=== PATIENT | female | born 1970 | race Caucasian/White ===

== ENCOUNTER 2016-06-02 13:57 | Inpatient (IN) | payer MEDICARE, MEDICAID ==
--- NOTE | 2016-06-02 15:04 | ED ---
Psych HPI - General Chief Complaint: Psychiatric Symptoms Stated Complaint: Psych Eval Time Seen by Provider: 06/02/16 14:14 Source: patient, police, RN notes reviewed Mode of arrival: ambulatory Limitations: no limitations - History of Present Illness Initial Comments: 45-year-old female presents emergency Department with police for psychiatric evaluation. Patient states that she was at the [facility] because she did not feel well. Patient had complete workup at [facility] with no acute findings. This was consistent with family story. Patient was picked up on court order psychiatric evaluation. Patient denies suicidal or homicidal thoughts. Patient denies any illicit drug use or alcohol use - Related Data Home Medications Medication Instructions Recorded Confirmed ARIPiprazole [Abilify Maintena] 400 mg IM Q28D 06/02/16 06/02/16 Calcium Carbonate/Vitamin D3 1 tab PO DAILY 06/02/16 06/02/16 [Calcium 600-Vit D3 800 Tab] Famotidine [Pepcid] 20 mg PO DAILY 06/02/16 06/02/16 Gabapentin [Neurontin] 100 mg PO TID 06/02/16 06/02/16 Magnesium Oxide [Mag-Ox] 400 mg PO DAILY 06/02/16 06/02/16 clonazePAM [Clonazepam] 2 mg PO HS 06/02/16 06/02/16 fluvoxaMINE MALEATE [Luvox] 100 mg PO QAM 06/02/16 06/02/16 Allergies Allergy/AdvReac Type Severity Reaction Status Date / Time codeine Allergy Unknown Verified 06/02/16 16:00 ibuprofen Allergy Unknown Verified 06/02/16 16:00 latex Allergy Itching Verified 06/02/16 16:00 chlorpromazine HCl AdvReac Extreme Verified 06/02/16 16:00 [From Thorazine] Sedation fluphenazine enanthate AdvReac Extreme Verified 06/02/16 16:00 [From Prolixin] Sedation fluphenazine HCl AdvReac Extreme Verified 06/02/16 16:00 [From Prolixin] Sedation Review of Systems ROS Statement: Those systems with pertinent positive or pertinent negative responses have been documented in the HPI. ROS Other: All systems not noted in ROS Statement are negative. Past Medical History Past Medical History: COPD, Deep Vein Thrombosis (DVT), GERD/Reflux, Hypertension History of Any Multi-Drug Resistant Organisms: None Reported Past Surgical History: Bariatric Surgery, Section, Cholecystectomy, Hernia Repair, Tubal Ligation Past Anesthesia/Blood Transfusion Reactions: Blood Transfusion Reaction Additional Past Anesthesia/Blood Transfusion Reaction / Comment(s): Patient states "yes" but unable to provide details. Past Psychological History: Anxiety, Bipolar, Depression, Schizophrenia Smoking Status: Current every day smoker Past Alcohol Use History: None Reported Additional Past Alcohol Use History / Comment(s): pt states that she smokes 5 cigarettes a day now and denies any ETOH or MJ or any other substance abuse Past Drug Use History: None Reported - Past Family History Mother Family Medical History: No Reported History Father Family Medical History: No Reported History Brother(s) Family Medical History: No Reported History Sister(s) Family Medical History: No Reported History Son(s) Family Medical History: No Reported History General Exam Limitations: no limitations General appearance: alert, in no apparent distress Head exam: Present: atraumatic, normocephalic, normal inspection Neck exam: Present: normal inspection. Absent: tenderness, meningismus, lymphadenopathy Respiratory exam: Present: normal lung sounds bilaterally. Absent: respiratory distress, wheezes, rales, rhonchi, stridor Cardiovascular Exam: Present: regular rate, normal rhythm, normal heart sounds. Absent: systolic murmur, diastolic murmur, rubs, gallop, clicks Neurological exam: Present: alert, oriented X3, CN II-XII intact Psychiatric exam: Present: flat affect Course Vital Signs 06/02/16 06/02/16 14:02 17:47 Temperature 98.5 F 98.4 F Pulse Rate 83 76 Respiratory 18 18 Rate Blood Pressure 156/87 137/88 O2 Sat by Pulse 97 95 Oximetry Medical Decision Making - Lab Data Lab Results 06/02/16 Range/Units 16:32 Urine Opiates Screen Not Detected (NotDetected) Ur Oxycodone Screen Not Detected (NotDetected) Urine Methadone Screen Not Detected (NotDetected) Ur Propoxyphene Screen Not Detected (NotDetected) Ur Barbiturates Screen Not Detected (NotDetected) U Tricyclic Antidepress Not Detected (NotDetected) Ur Phencyclidine Scrn Not Detected (NotDetected) Ur Amphetamines Screen Not Detected (NotDetected) U Methamphetamines Scrn Not Detected (NotDetected) U Benzodiazepines Scrn Not Detected (NotDetected) Urine Cocaine Screen Not Detected (NotDetected) U Marijuana (THC) Screen Not Detected (NotDetected) Disposition Clinical Impression: Bipolar disorder Disposition: ADMITTED IP TO THIS HOSP
[2016-06-02] MEDS ORDERED: MAGNESIUM HYDROXIDE 2,400 MG/10 ML CUP PO PRN (19:26)
[2016-06-02] MEDS ORDERED: ZIPRASIDONE 20 MG VIAL IM PRN (19:41)
[2016-06-02] MEDS ORDERED: LORazepam 2 MG/ML SYRINGE IM PRN (19:41)
[2016-06-02] MEDS: ACETAMINOPHEN TAB 325 MG TAB PO PRN (21:35)
[2016-06-02] MEDS: LORazepam 1 MG TAB PO PRN (21:35)
[2016-06-03] MEDS ORDERED: ARIPiprazole 400 MG VIAL IM ONE (13:07)
--- NOTE | 2016-06-03 13:07 | P.HP ---
Psychiatric H&P - . H&P Date: 06/03/16 History & Physical: IDENTIFYING DATA: Ms. Hogan is a 45-year-old female who has a history of a schizophrenia. She stated that she came to the hospital because " I couldn't remember my medications. My apartment is hot. It is only a 1 room apartment." HISTORY OF PRESENT ILLNESS: She was minimally cooperative with the interview. She refused to get out of bed complaining that she is too weak. She pointed to a fall risk bracelet as proof that she is too weak to get out of bed. She presented to [facility] on 06/02/2016 with complaints of poor sleep, fatigue and aches and pains. The ACT team from [facility] learned of her presentation to [facility]. According to information in the record she had been missing from the ACT team for month and half. She is under a 1 year continuing treatment order dated 10/29/2015. She told the EPS nurse that she was staying "[facility]" and he kept getting drunk and high which kept away from [facility]. She has not been complaint with her prescribed medications. She claimed that she was "burning up inside". PAST PSYCHIATRIC HISTORY: According to record she was first hospitalized in the at approximately 1986. This is her seventh admission to this unit since 2010. She was last discharged in June 2014 with a diagnosis of this paranoid type schizophrenia. Her discharge medications included Haldol 5 mg daily. According to information from [facility] she has a diagnosis of schizoaffective disorder bipola. Her current medications are: Abilify maintaining a 400 mg IM every 4 weeks, clonazepam 2 mg at bedtime and Luvox 100 mg daily. The Invega Sustenna was discontinued on 10/15/2015. PAST MEDICAL HISTORY: According to record she has history of COPD, history of DVT, GERD and hypertension. Past surgeries include bariatric, , cholecystectomy, hernia repair and tubal ligation. ALLERGIES: She lists several medication as ALLERGIES including codeine, ibuprofen, chlorpromazine and fluphenazine. SUBSTANCE USE HISTORY: She stated that she had a drink of alcohol and smokes marijuana "couple weeks ago". Her UDS was negative for drugs of abuse and her BAL was 0. Into the record she had a DUI in 1986. FAMILY PSYCHIATRIC/SUBSTANCE USE HISTORY: According to the record she has no family history of mental illness. LEGAL HISTORY: She denied a history of legal problems. SOCIAL HISTORY: She was born in [place] and raised by an intact family. She denied a childhood history of physical, sexual or emotional abuse. She has 5 brothers and 3 sisters. She graduated from high school. She was in the [employer] from [id number] and received a medical discharge. He is unemployed and receives security disability. MENTAL STATUS EXAM: She presented as a disheveled appearing minimally cooperative 45-year-old female with close cropped hair and a mustache. She was laying in bed and refused to get up. She made eye contact and appeared to attend to the interview. She had no prominent physical abnormalities. She had a flat facial expression. She was alert and oriented to person, place and time. She showed psychomotor retardation but no abnormal involuntary movements. Her speech was not spontaneous and had decreased rate, rhythm and volume. She had no articulation difficulties. Her affect was flat and unreactive. She denied suicidal ideation or wishes. She denied homicidal ideation. She expressed feelings of hopelessness and helplessness. She did not express phobias, ideas reference, paranoid ideation or delusions. Her thinking was concrete and associations were not coherent, logical and goal directed. She denied hallucinations and did not appear to be responding to internal stimuli. Global impression of intellect is average. She has limited awareness of her illness or need for mental health treatment. STRENGTHS: Good physical health, stable housing, stable employment. WEAKNESSES: For compliance with mental health treatment. IMPRESSION: She is a 45-year-old female who is a long history of mental illness. She presented to the unit involuntarily with complaints of weakness. Due to her history of noncompliance she is on a one- year involuntary treatment order. She is minimally cooperative with the interview and provided little information about her current history or past history. Will need collateral information most likely from community mental health. Her history and presentation are consistent with a chronic schizophrenia. She best be treated on an outpatient basis with combination of psychopharmacology and multimodal therapy. PRINCIPLE DIAGNOSIS: Schizophrenia, unspecified depressive disorder, poor compliance with medical care RECOMMENDATION: Continue inpatient psychiatric hospitalization. Suicide precautions with 15 minute checks. Obtain collateral information from community mental health regarding most recent mental health treatment. Consult medicine for initial physical exam and medical history. Social work to complete /psychosocial assessment. Clarify current psychotropic medications with [facility].. Encourage participation in therapeutic groups and activities. Evaluate clinical status response to treatment on a daily basis. Allergies Allergy/AdvReac Type Severity Reaction Status Date / Time codeine Allergy Unknown Verified 06/03/16 05:06 ibuprofen Allergy Unknown Verified 06/03/16 05:06 latex Allergy Itching Verified 06/03/16 05:06 chlorpromazine HCl AdvReac Extreme Verified 06/03/16 05:06 [From Thorazine] Sedation fluphenazine enanthate AdvReac Extreme Verified 06/03/16 05:06 [From Prolixin] Sedation fluphenazine HCl AdvReac Extreme Verified 06/03/16 05:06 [From Prolixin] Sedation Vital Signs Temp 97.6 F 06/03/16 04:58 Pulse 70 06/03/16 04:58 Resp 16 06/03/16 04:58 BP 118/72 06/03/16 04:58 Pulse Ox 95 06/02/16 20:54 Intake & Output 06/02/16 06/03/16 06/03/16 18:59 06:59 18:59 Weight 74.8 kg Laboratory Last Values Urine Opiates Screen Not Detected (NotDetected) 06/02/16 16:32 Ur Oxycodone Screen Not Detected (NotDetected) 06/02/16 16:32 Urine Methadone Screen Not Detected (NotDetected) 06/02/16 16:32 Ur Propoxyphene Screen Not Detected (NotDetected) 06/02/16 16:32 Ur Barbiturates Screen Not Detected (NotDetected) 06/02/16 16:32 U Tricyclic Antidepress Not Detected (NotDetected) 06/02/16 16:32 Ur Phencyclidine Scrn Not Detected (NotDetected) 06/02/16 16:32 Ur Amphetamines Screen Not Detected (NotDetected) 06/02/16 16:32 U Methamphetamines Scrn Not Detected (NotDetected) 06/02/16 16:32 U Benzodiazepines Scrn Not Detected (NotDetected) 06/02/16 16:32 Urine Cocaine Screen Not Detected (NotDetected) 06/02/16 16:32 U Marijuana (THC) Screen Not Detected (NotDetected) 06/02/16 16:32 06/03/16 07:47 06/03/16 08:06 06/03/16 12:48
--- NOTE | 2016-06-03 14:35 | P.CONS ---
History of Present Illness - Reason for Consult Consult date: 06/03/16 Medical management - History of Present Illness This is a 45-year-old female. She is a patient of Dr. Arteaga with a past medical history for hypertension, hypertensive cardiovascular disease, chronic tobacco use and dependence with COPD, paranoid schizophrenia and followed at [facility] with Dr. Vasquez. Patient has not been seen on the mental health unit since 2014. Patient states that Dr. Vasquez had changed some of her medications and those are making her sick. Her girlfriend called EMS and she was taken initially to [facility] and then transferred to [facility] by police. Patient denies any suicidal thoughts. Urine drug screen is negative. TSH 2.750. Review of Systems All systems: negative Constitutional: Denies chills, Denies fever Eyes: denies blurred vision, denies pain Ears, nose, mouth and throat: Denies headache, Denies sore throat Cardiovascular: Denies chest pain, Denies shortness of breath Respiratory: Denies cough Gastrointestinal: Denies abdominal pain, Denies diarrhea, Denies nausea, Denies vomiting Genitourinary: Denies dysuria, Denies hematuria Musculoskeletal: Denies myalgias Integumentary: Denies pruritus, Denies rash Neurological: Denies numbness, Denies weakness Psychiatric: Reports confusion, Reports paranoia, Denies anxiety, Denies depression, Denies suicidal ideation Endocrine: Denies fatigue, Denies weight change Past Medical History Past Medical History: COPD, Deep Vein Thrombosis (DVT), GERD/Reflux, Hypertension History of Any Multi-Drug Resistant Organisms: None Reported Past Surgical History: Bariatric Surgery, Section, Cholecystectomy, Hernia Repair, Tubal Ligation Past Anesthesia/Blood Transfusion Reactions: Blood Transfusion Reaction Additional Past Anesthesia/Blood Transfusion Reaction / Comm: Patient states "yes" but unable to provide details. Past Psychological History: Anxiety, Bipolar, Depression, Schizophrenia Smoking Status: Former smoker Past Alcohol Use History: None Reported Additional Past Alcohol Use History / Comment(s): pt states that she smokes 5 cigarettes a day in the past but none now and denies any ETOH or MJ or any other substance abuse Past Drug Use History: None Reported - Past Family History Mother Family Medical History: No Reported History Additional Family Medical History / Comment(s): Patient thinks her mother of old age. Father Family Medical History: No Reported History Additional Family Medical History / Comment(s): Father at age 93 from possible old age. Brother(s) Family Medical History: No Reported History Additional Family Medical History / Comment(s): Patient had 4 brothers and 2 have , one from lung cancer and one from ALS. Sister(s) Family Medical History: No Reported History Additional Family Medical History / Comment(s): Patient has 2 sisters and she does not know their medical problems. Son(s) Family Medical History: No Reported History Additional Family Medical History / Comment(s): Patient has one son that she gave up for adoption. Medications and Allergies Home Medications Medication Instructions Recorded Confirmed Type ARIPiprazole [Abilify Maintena] 400 mg IM Q28D 06/02/16 06/02/16 History Calcium Carbonate/Vitamin D3 1 tab PO DAILY 06/02/16 06/02/16 History [Calcium 600-Vit D3 800 Tab] Famotidine [Pepcid] 20 mg PO DAILY 06/02/16 06/02/16 History Gabapentin [Neurontin] 100 mg PO TID 06/02/16 06/02/16 History Magnesium Oxide [Mag-Ox] 400 mg PO DAILY 06/02/16 06/02/16 History clonazePAM [Clonazepam] 2 mg PO HS 06/02/16 06/02/16 History fluvoxaMINE MALEATE [Luvox] 100 mg PO QAM 06/02/16 06/02/16 History Allergies Allergy/AdvReac Type Severity Reaction Status Date / Time codeine Allergy Unknown Verified 06/03/16 05:06 ibuprofen Allergy Unknown Verified 06/03/16 05:06 latex Allergy Itching Verified 06/03/16 05:06 chlorpromazine HCl AdvReac Extreme Verified 06/03/16 05:06 [From Thorazine] Sedation fluphenazine enanthate AdvReac Extreme Verified 06/03/16 05:06 [From Prolixin] Sedation fluphenazine HCl AdvReac Extreme Verified 06/03/16 05:06 [From Prolixin] Sedation Physical Exam Vitals: Vital Signs Temp Pulse Pulse Resp BP BP Pulse Ox 06/03/16 04:58 97.6 F 70 16 118/72 06/02/16 20:54 98.0 F 95 16 149/101 95 06/02/16 19:26 97.2 F L 79 18 153/87 97 Intake and Output 06/02/16 06/03/16 06/03/16 22:59 06:59 14:59 Other: Weight 74.8 kg Gen: This is a 45-year-old female. She is cooperative for evaluation. HEENT: Head is atraumatic, normocephalic. Pupils equal, round. Sclerae is anicteric. NECK: Supple. No JVD. No lymphadenopathy. No thyromegaly. LUNGS: Clear to auscultation. No wheezes or rhonchi. No intercostal retractions. HEART: Regular rate and rhythm. No murmur. ABDOMEN: Soft. Bowel sounds are present. No masses. No tenderness. EXTREMITIES: No pedal edema. No calf tenderness. NEUROLOGICAL: Patient is awake, alert and oriented x2. Cranial nerves 2 through 12 are grossly intact. Assessment and Plan Plan: 1. Paranoid schizophrenia. Patient has been admitted to the mental health unit. Continue current plan of care 2. History of hypertension but patient is not currently on antihypertensive medication. 3. History of obesity in the past status post Ivana-en-Y surgery. 4. History of gastric esophageal reflux disease. Continue Pepcid 20 mg daily. 5. Tobacco use in the past. No need for nicotine patch. Impression and plan of care have been directed as dictated by the signing physician. Colette Jacome nurse practitioner acting as scribe for signing physician. Time with Patient: Greater than 30
[2016-06-04] MEDS: MAGNESIUM OXIDE 400 MG TAB PO SCH (10:38)
[2016-06-04] MEDS: ARIPiprazole 10 MG TAB PO SCH (10:38)
[2016-06-04] MEDS: FAMOTIDINE 20 MG TAB PO SCH (10:38)
--- NOTE | 2016-06-04 13:29 | P.PN ---
Progress Note - Text SUBJECTIVE: I reviewed the medical record, interviewed Ms. Hogan and discussed her treatment and treatment plan during team meeting. She was sitting in bed. She alleged that she could not stand or walk. She was somatically preoccupied expressed several somatic delusional beliefs. She believes that she had lost the strength of her legs and could not walk. She believes that she had lost a calcium in her bones and if she were to stand her bones would break. She believes that her back broke last night because when she turned over she heard a crack. OBJECTIVE: She previously has stated as a thin pale appearing 45-year-old female who is much older than her stated age. She maintained eye contact but did not appear to attend to the interview. She had no distinguishing features or prominent physical abnormalities. She had a distressed facial expression. She showed psychomotor retardation. She was able to stand with the assistance of to staff. She attempted to fall but quickly regained her posture when directed by staff to "stand straight." Her gait was slow. Her speech was spontaneous and she had no articulation difficulties. Her affect was dysphoric , anxious suspicious. She denied suicidal or homicidal ideation. She feels hopeless and helpless. She ruminated about various somatic issues and expressed multiple fragmented somatic delusional beliefs. She did not express ideas of reference. Her thinking was concrete and associations were not coherent or logical. She did not appear to responding to internal stimuli. She is not attending therapeutic groups or activities. She slept 4 hours last night. According to the [facility] disease on she last received an injection of Abilify Maintenna 400mg on 03/27/2016. ASSESSMENT: She appears severely mentally ill and minimally improve from admission. She's been compliant with prescribed psychotropic medications. PLAN: He with inpatient psychiatric hospitalization due to severity of her psychosis. Continue Abilify 10 mg daily and Luvox 100 mg at bedtime. Restart Abilify Maintenna 400 mg IM monthly. Encourage participation in therapeutic groups and activities. Evaluate clinical status response to treatment on a daily basis.
[2016-06-04] MEDS: CALCIUM CARB-VIT D 500MG-200UN 1 EACH TAB PO SCH (13:31)
[2016-06-04] MEDS: LORazepam 1 MG TAB PO PRN (20:08)
[2016-06-05] MEDS: MAGNESIUM OXIDE 400 MG TAB PO SCH (10:03)
[2016-06-05] MEDS: FAMOTIDINE 20 MG TAB PO SCH (10:03)
[2016-06-05] MEDS: ARIPiprazole 10 MG TAB PO SCH (10:03)
[2016-06-05] MEDS: CALCIUM CARB-VIT D 500MG-200UN 1 EACH TAB PO SCH (13:12)
--- NOTE | 2016-06-05 13:55 | P.PN ---
Progress Note - Text SUBJECTIVE: I reviewed the medical record, attempted to interview Mrs. Hogan and discussed her treatment and treatment plan during team meeting. She was laying in bed and refused to up for the interview. She would not answer questions. OBJECTIVE: She presented as a disheveled and lethargic 45-year-old woman. She was laying in bed and did respond to my greeting or answer questions. She did not attend to the interview. According to nursing staff she does not get out of bed unless prompted and assisted by nursing staff. She does not attend therapeutic groups or activities. She continues to complain that she is too weak to walk. ASSESSMENT: She continues to be withdrawn and psychotic with marked somatic delusional beliefs. PLAN: Continue inpatient psychiatric hospitalization due to her marked withdrawal and somatic delusional beliefs. Increase oral Abilify to 15 mg at bedtime. Continue Abilify maintaining a 400 mg monthly. Encourage her to get out of bed and eat meals. Encourage participation in therapeutic groups and activities. Evaluate clinical status and response to treatment on a daily basis.
[2016-06-06] MEDS: MAGNESIUM OXIDE 400 MG TAB PO SCH (11:51)
[2016-06-06] MEDS: CALCIUM CARB-VIT D 500MG-200UN 1 EACH TAB PO SCH (11:51)
[2016-06-06] MEDS: ARIPiprazole 15 MG TAB PO SCH (11:51)
[2016-06-06] MEDS: FAMOTIDINE 20 MG TAB PO SCH (11:51)
--- NOTE | 2016-06-06 14:43 | P.PN ---
Progress Note - Text Interval history: The patient is found in her room lying in bed. She refuses to get up to speak in an interview room stating she is too weak. Staff report that she has been isolating in her room. In order to consult physical therapy was obtained. The patient has a known diagnosis of schizophrenia and is currently prescribed Abilify 15 mg daily. In reviewing other records it appears that she has somatic delusions. She reports that her weakness is across her whole body and is not localized. It appears staff are assisting her to the restroom. Mental status exam: The patient is alert she is lying in bed she is covered with a blanket up to her neck. She wears eyeglasses eye contact is appropriate. She does answer questions asked there is no spontaneous speech she does speak softly. She endorses no suicidal or homicidal ideation intent or plan she endorses no auditory or visual hallucinations and endorses no specific delusions however she is likely struggling with delusional thought which is limiting her function. Insight and judgment are impaired. She demonstrates no verbal or physical aggressiveness. No abnormal involuntary movements. She is oriented to person place and date. Affect is bland to flat. Plan: The patient will continue on the Abilify as written. We will monitor her for safety. She is encouraged to get up and participate in the milieu. Physical therapy has been asked to consult regarding her mobility. Vital signs reviewed.
[2016-06-06] MEDS: LORazepam 1 MG TAB PO PRN (16:00)
[2016-06-06 17:19] LABS: Basophils # (A) 0.1 k/uL (0-0.2); Basophils % (A) 1 %; CH 29.7; CHCM 32.6; Eosinophils # (A) 0.2 k/uL (0-0.7); Eosinophils % (A) 2 %; HCT 46.9 % (34.0-46.0); HDW 2.26; Luc # (Auto) 0.17; Luc % (Auto) 2; Lymphocytes # (A) 1.9 k/uL (1.0-4.8); Lymphocytes % (A) 24 %; MCH 29.4 pg (25.0-35.0); MCHC 32.1 g/dL (31.0-37.0); MCV 91.5 fL (80.0-100.0); Mean Platelet Volume 7.3; Monocytes # (A) 0.4 k/uL (0-1.0); Monocytes % (A) 6 %; Neutrophils # (A) 5.1 k/uL (1.3-7.7); Neutrophils % (A) 65 %; RBC 5.12 m/uL (3.80-5.40); WBC 7.9 k/uL (3.8-10.6); WBC (Perox) 7.84
[2016-06-06 17:38] LABS: ALT 44 U/L (9-52); AST 22 U/L (14-36); Alkaline Phosphatase 101 U/L (38-126); Anion Gap 10 mmol/L; Blood Urea Nitrogen 16 mg/dL (7-17); Calcium 9.4 mg/dL (8.4-10.2); Carbon Dioxide 23 mmol/L (22-30); Chloride 103 mmol/L (98-107); Creatine Kinase <20 U/L (30-135); Glucose 87 mg/dL (74-99); Non-African American GFR(MDRD) >60 (>60 ml/min/1.73 sqM); Potassium 4.4 mmol/L (3.5-5.1); Sodium 136 mmol/L (137-145); Total Bilirubin 0.8 mg/dL (0.2-1.3); Total Protein 6.7 g/dL (6.3-8.2)
[2016-06-06 17:56] LABS: Appearance,Urine Clear (Clear); Bilirubin,Urine Negative (Negative); Glucose,Urine (UA) Negative (Negative); Ketones,Urine 1+ (Negative); Leukocyte Esterase,Urine Negative (Negative); Nitrite,Urine Negative (Negative); PH, Urine 5.5 (5.0-8.0); Protein,Urine Negative (Negative); Specific Gravity,Urine 1.014 (1.001-1.035); UA Billing (MACRO vs. MICRO) CHEM; Urobilinogen,Urine <2.0 mg/dL (<2.0)
[2016-06-06 18:25] LABS: Vitamin B12 877 pg/mL (239-931)
[2016-06-07] MEDS: ARIPiprazole 15 MG TAB PO SCH (09:27)
[2016-06-07] MEDS: MAGNESIUM OXIDE 400 MG TAB PO SCH (09:27)
[2016-06-07] MEDS: FAMOTIDINE 20 MG TAB PO SCH (09:27)
[2016-06-07] MEDS: CALCIUM CARB-VIT D 500MG-200UN 1 EACH TAB PO SCH (13:14)
--- NOTE | 2016-06-07 13:41 | P.PN ---
Progress Note - Text Interval history: The patient is found in her room she is lying in bed. She continues to state that she is not able to get up however nursing states that with assistance she was able to walk to the bathroom with a walker. She has not been going to groups. By mouth intake has been limited. We have already ordered a physical therapy consult and dietary has been asked to review the patient's case as well. The patient states that she feels weak all over and not and one specific area. Ental status exam: The patient's is lying in bed she is covered up to her neck she does make eye contact she has no spontaneous speech but answers questions briefly. She reports feeling depressed she endorses no suicidal or homicidal ideation. She endorses no auditory or visual hallucinations. She continues to state that because of generalized body weakness she is not able to get up and walk. She endorses no other specific delusions. Thought process is linear as she only provides brief answers to questions asked. She is oriented to person place month and year as well as day of the week. There is no verbal or physical aggressiveness. No abnormal involuntary movements. Plan: The patient is encouraged to get out of bed and ambulate more. We are awaiting evaluation from physical therapy. We are waiting recommendations from dietary. We will continue to monitor her for safety and encourage her participation in the milieu. Vital signs reviewed.
[2016-06-07] MEDS: GABAPENTIN 100 MG CAP PO SCH ×2 (16:42→21:52)
--- NOTE | 2016-06-07 19:13 | P.PN ---
Subjective Principal diagnosis: We will reconsulted secondary to generalized weakness, and generalized pain This is a [id number] is a 45-year-old female. She is a patient of Dr. Arteaga with a past medical history for hypertension, hypertensive cardiovascular disease, chronic tobacco use and dependence with COPD, paranoid schizophrenia and followed at [facility] with Dr. Vasquez. Patient has not been seen on the mental health unit since 2014. Patient states that Dr. Vasquez had changed some of her medications and those are making her sick. Her girlfriend called EMS and she was taken initially to [facility] and then transferred to [facility] by police. Patient denies any suicidal thoughts. Urine drug screen is negative. TSH 2.750. We were consulted secondary to generalized muscle aches and fatigue and troubles with ambulating patient is not getting out of bed, he done additional blood work, which shows normal thyroid, normal B12, chemistries are essentially normal with normal urinalysis. With her generalized aches and pains it is more suspicious or fibromyalgia, rather than isolated motor neuropathy, gabapentin was started at 100 mg 3 times a day, with labs to include uric acid sed rate CRP ADOLFO and CCP. Objective - Vital Signs Vital signs: Vital Signs Temp 97.6 F 06/07/16 07:31 Pulse 52 L 06/07/16 07:31 Resp 16 06/07/16 07:31 BP 109/57 06/07/16 07:31 Pulse Ox 94 L 06/06/16 16:00 Intake & Output 06/07/16 06/07/16 06/08/16 06:59 18:59 06:59 Intake Total 20 Balance 20 Intake: Oral 20 - Constitutional General appearance: Present: average body habitus, cooperative - EENT Eyes: Present: anicteric sclerae (Hirsutism), EOMI, PERRLA, dentition normal, normal appearance ENT: Present: hearing grossly normal, normal oropharynx - Neck Neck: Present: normal ROM. Absent: lymphadenopathy, other, rigidity, stridor, thyromegaly - Respiratory Respiratory: bilateral: CTA, negative: diminished, dullness, rales - Cardiovascular Rhythm: regular Heart sounds: normal: S1, S2 Abnormal Heart Sounds: Absent: systolic murmur, diastolic murmur, rub, S3 Gallop , S4 Gallop, click, other - Gastrointestinal General gastrointestinal: Present: normal bowel sounds, soft - Integumentary Integumentary: Present: decreased turgor, normal - Neurologic Neurologic: Present: CNII-XII intact - Musculoskeletal Musculoskeletal Comment(s): Generalized myalgia with trigger myofascial pain noted, no effusion noted on joints and fingers, no cyanosis, no isolated motor deficits, speech is normal no dysarthria Musculoskeletal: Present: generalized weakness - Psychiatric Psychiatric: Present: A&O x's 3 - Labs CBC & Chem 7: 06/06/16 17:07 06/06/16 17:07 Assessment and Plan Plan: 1. Paranoid schizophrenia. Patient has been admitted to the mental health unit. Continue current plan of care 2. History of hypertension but patient is not currently on antihypertensive medication. 3. History of obesity in the past status post Ivana-en-Y surgery. 4. History of gastric esophageal reflux disease. Continue Pepcid 20 mg daily. 5. Tobacco use in the past. No need for nicotine patch. 6. Generalized myalgia suspicious of fibromyositis or fibromyalgia, however other out to immune problems cannot be ruled out with her existing fatigue, cortisol levels also will obtained, and ADOLFO sed rate CRP CCP. Patient was started on gabapentin 100 mg 3 times a day, awaiting additional labs to be obtained, baseline labs include normal thyroid normal B12 and normal urinalysis including other chemistries. Sleep hygiene is also again reinforced. Patient might need local muscle relaxant like orphenadrine 100 mg twice a day or Flexeril 10 mg at bedtime
[2016-06-08] MEDS: GABAPENTIN 100 MG CAP PO SCH ×3 (10:22→20:48)
[2016-06-08] MEDS: MAGNESIUM OXIDE 400 MG TAB PO SCH (10:22)
[2016-06-08] MEDS: FAMOTIDINE 20 MG TAB PO SCH (10:22)
[2016-06-08] MEDS: ARIPiprazole 15 MG TAB PO SCH (10:22)
[2016-06-08 11:22] LABS: C Reactive Protein 9.6 mg/L (<10.0); Uric Acid 6.1 mg/dL (3.7-7.4)
[2016-06-08] MEDS: CALCIUM CARB-VIT D 500MG-200UN 1 EACH TAB PO SCH (13:48)
--- NOTE | 2016-06-08 14:46 | P.PN ---
Progress Note - Text SUBJECTIVE: Reviewed the medical record, interviewed Ms. Hogan to discuss her treatment and treatment plan during team meeting. She complains of feeling weak and unable to get out of bed without assistance. Nursing staff reported that she needs to be prompted an urge to get out of bed and eat meals. She is able to walk with the assistance of a wheeled walker. She remained somatically preoccupied but denied believing that her back is broken her that she has lost a calcium in her bones. OBJECTIVE: She presented as a thin and frail-appearing 45-year-old woman who appeared much older than her stated age. She made eye contact and appeared to attend to the interview. She had no prominent physical abnormalities. She had a blunted facial expression. She showed marked psychomotor retardation and no abnormal involuntary movements. Her speech was not spontaneous. He had decreased rate, rhythm and volume. She had no articulation difficulties. Her affect was blunted and unreactive. She denied suicidal ideation or wishes. She feels hopeless and helpless. She ruminated on her physical illness, her weakness and her to the care of herself. She did not express ideas reference, paranoid ideation or delusional thoughts. Her thinking was concrete but her associations were coherent and logical. Dr. Nam reconsulted medicine over the weekend due to complaints of continued physical weakness. The desk manager suspected fibromyositis, fibromyalgia or another immune problem. He ordered cortisol, ADOLFO, sed rate, CRP and CCP. He recommended gabapentin 100 mg 3 times and orphenadrine 100 mg twice a day o= Flexeril 10 mg at bedtime. She has not participated in therapeutic groups and activities. She is sleeping between 3 and 6 hours per night. ASSESSMENT: She remains markedly withdrawn and lethargic. She is not overtly expressing somatic delusional thoughts. Internal medicine is evaluating her for a possible immune disorder. PLAN: Continue inpatient psychiatric hospitalization. Increase Seroquel to 400 mg at bedtime. Begin gabapentin 100 mg 3 times a day and Flexeril 10 mg at bedtime. Encourage to get out of bed and eat her meals. Encourage participation in therapeutic groups and activities. Evaluate clinical status response to treatment daily basis.
[2016-06-09 07:20] LABS: ANA w/Reflex to Titer POSITIVE (NEGATIVE)
[2016-06-09] MEDS: MAGNESIUM OXIDE 400 MG TAB PO SCH (09:15)
[2016-06-09] MEDS: ARIPiprazole 15 MG TAB PO SCH (09:15)
[2016-06-09] MEDS: FAMOTIDINE 20 MG TAB PO SCH (09:15)
[2016-06-09] MEDS: GABAPENTIN 100 MG CAP PO SCH ×3 (09:15→20:28)
--- NOTE | 2016-06-09 12:05 | P.PN ---
Progress Note - Text SUBJECTIVE: I reviewed the medical record, interviewed Mr. Mancera and discussed her treatment and treatment plan during team meeting. She would not get out of bed for the interview. She kept most of her face covered with her blanket. She complained of feeling tired and alleged that her legs were "too weak" for her to get out of bed. When I asked her why she hasn't been eating she replied that she is not hungry. In response to questions about suicidal thoughts or wishes she shook her head to indicate "no". She covered her head blanket when I told her that I will instruct nursing staff to get out of bed for meals. OBJECTIVE: She presented as a thin, pale and frail appearing 45-year-old female who made eye contact but cooperated minimally with the interview. She had a blunted facial expression. She had marked psychomotor retardation but no abnormal involuntary movements. Her speech was not spontaneous and had decreased rate, rhythm and volume. Affect was depressed and not reactive. She denied suicidal ideation or wishes. She did not answer questions about feelings of hopelessness, helplessness or worthlessness. She ruminated on her subjective weakness and her reported inability to walk. She did not express ideas reference, paranoid ideation or somatic delusional beliefs. Her thinking was concrete and associations were not coherent and logical. She denied hallucinations and did not appear to be responding to internal stimuli. She 25% of breakfasts and 25% of dinner yesterday. She did not eat lunch or eat at bedtime snack. Dietary consult appreciated. She is refusing to attend therapeutic groups or activities. She refuses to get out of bed for meals. Nursing staff reported that she only gets out of bed only if they "force" her. ASSESSMENT: She continues to refuse to get out of bed except to toilet herself. She has history of DVT and her physical activity may increase her risk. She does not currently appear psychotic and is denying somatic delusions. PLAN: Continue inpatient psychiatric hospitalization due to the marked withdrawal. Nursing staff to get her out of bed for meals. Consider her sitting in a wheelchair for therapeutic groups and activities. Following recommendation a dietitian for nutritional supplements if she refused to eat. Flexeril 10 mg at bedtime and gabapentin 100 mg 3 times a day as per recommendation of organizational research consultant. Continue Luvox 100 mg at bedtime and Abilify 15 mg daily. Evaluate clinical status response to treatment on a daily basis.
[2016-06-09] MEDS: CALCIUM CARB-VIT D 500MG-200UN 1 EACH TAB PO SCH (13:11)
[2016-06-09] MEDS: CYCLOBENZAPRINE 10 MG TAB PO SCH (20:28)
[2016-06-10] MEDS: MAGNESIUM OXIDE 400 MG TAB PO SCH (09:55)
[2016-06-10] MEDS: GABAPENTIN 100 MG CAP PO SCH ×3 (09:56→21:25)
[2016-06-10] MEDS: FAMOTIDINE 20 MG TAB PO SCH (09:56)
[2016-06-10] MEDS: ARIPiprazole 15 MG TAB PO SCH (09:57)
--- NOTE | 2016-06-10 11:17 | P.PN ---
Progress Note - Text SUBJECTIVE: I reviewed the medical record, interviewed Ms. Hogan and discussed her treatment and treatment plan during team meeting. She continues to complain of feeling weak and tired. She alleges that she is too weak to stand or walk. This morning, she abruptly stopped our conversation and stared blankly in response to questions. She would not to questions about self-harm or psychotic symptoms. She will not attend therapeutic groups or activities unless nursing staff pulls her out of bed and pushes her wheelchair into the group room. OBJECTIVE: She presented as a thin and uncooperative 45-year-old female who was lying in bed and would not get out of bed for the interview. She did not make eye contact and at times did not appear to attend to the interview. She had marked psychomotor retardation but no abnormal involuntary movements. Her speech was not spontaneous volume was so low that her voice was barely audible. Her affect was flat and unreactive. She would not answer questions about suicidality or homicidality. She did not express ideas reference, paranoid ideation or delusional thoughts. She did not express somatic delusional beliefs. She perseverated on the belief that she is too weak to stand or walk. She answered many questions with "I'm too weak." Her thinking was concrete and associations were not fully coherent. She did not appear to be responding to internal stimuli. Yesterday, she did not eat breakfast but ate 50% of her dinner and her at bedtime snack. She attended one therapeutic group briefly then wheeled herself outside of the group room and sat in the hallway facing away from the group. ASSESSMENT: She is markedly withdrawn and anhedonic. She is eating less than half of her meals. She does not appear overtly psychotic. PLAN: Continue inpatient hospitalization due to severity of the withdrawal and anhedonia. Continue Abilify 15 mg daily. Increase Luvox to 150 g at bedtime and titrate according to clinical response and tolerance. Follow recommendations of dietary senior solutions workflow consultant. Make her get out of bed for meals. Encourage hydration. Consider making her get out of bed for therapeutic groups and activities. Medicine service is evaluating her for fibromyositis for fibromyalgia. Family clinical status and response to treatment daily basis.
[2016-06-10] MEDS: CALCIUM CARB-VIT D 500MG-200UN 1 EACH TAB PO SCH (13:22)
[2016-06-10] MEDS: CYCLOBENZAPRINE 10 MG TAB PO SCH (21:24)
[2016-06-11] MEDS: GABAPENTIN 100 MG CAP PO SCH ×3 (08:43→20:37)
[2016-06-11] MEDS: ARIPiprazole 15 MG TAB PO SCH (08:43)
[2016-06-11] MEDS: MAGNESIUM OXIDE 400 MG TAB PO SCH (08:43)
[2016-06-11] MEDS: FAMOTIDINE 20 MG TAB PO SCH (08:43)
[2016-06-11] MEDS: CALCIUM CARB-VIT D 500MG-200UN 1 EACH TAB PO SCH (12:50)
--- NOTE | 2016-06-11 13:10 | P.PN ---
Progress Note - Text CLINICAL PROBLEMS: She is a 45-year-old woman who has a history of a schizophrenia and poor compliance with medical care. She presented to unit involuntarily as part of a one-year involuntary treatment order. She somatically preoccupied and intermittently expresses somatic delusional beliefs. She complains of extreme fatigue and weakness to the point where she alleges she is unable to stand or get out of bed. She presented similarly during past hospitalizations. Today, she complained of blood in her stools. 24 HOUR EVENTS: She was evaluated by physical therapy this morning: Consult appreciated. She ate 25% of breakfast and 10% of dinner yesterday. She did not eat lunch or eat the at bedtime snack. She did not attend therapeutic groups or activities EXAMINATION: Presented as a thin frail-appearing 45-year-old woman who is laying in bed. She alleged that she was too weak to stand up or come to my office for the interview. Her, she was out of bed earlier for breakfast and as per orders nursing staff is getting out of bed for meals. She appeared to attend to the interview and made eye contact. She had a blunted facial expression. She showed psychomotor retardation but no abnormal involuntary movements. Her speech was spontaneous with decreased rate, rhythm and volume. Her affect was blunted. She did not express suicidal ideation or wishes. She perseverated about her weakness and her inability to stand or walk. She complained of having a poor appetite. She did not express phobias, ideas reference or paranoid ideation. She did not express somatic delusional beliefs. Her thinking was concrete but her associations appeared coherent. She denied hallucinations and did not appear to be responding to internal stimuli. PERTINENT DATA: Her weight on 06/09/16 was 74.8 kg ASSESSMENT: She continues to complain of generalized weakness and having a poor appetite. There is been no change in her weight since 06/05/2016. Instructed her to notify the nursing staff when she has a bowel movement to evaluate her complaints of bloody stools. PLAN: Continue inpatient hospitalization. Follow recommendations of the physical therapist. Continue order that she has to be out of bed for meals. Monitor nutritional intake and weights. Begin Colace 100 mg by mouth twice a day for constipation. Continue Abilify 15 mg daily and Luvox 100 mg at bedtime. Continue Pepcid 20 mg daily gabapentin 100 mg 3 times a day and Flexeril 10 mg at bedtime. Encourage participation in therapeutic groups and activities. Evaluate clinical status response to treatment on a daily basis.
[2016-06-11] MEDS: CYCLOBENZAPRINE 10 MG TAB PO SCH (20:37)
[2016-06-11] MEDS: DOCUSATE 100 MG CAP PO SCH (20:37)
[2016-06-12] MEDS: ARIPiprazole 15 MG TAB PO SCH (09:35)
[2016-06-12] MEDS: FAMOTIDINE 20 MG TAB PO SCH (09:35)
[2016-06-12] MEDS: DOCUSATE 100 MG CAP PO SCH ×2 (09:35→20:34)
[2016-06-12] MEDS: MAGNESIUM OXIDE 400 MG TAB PO SCH (09:36)
[2016-06-12] MEDS: GABAPENTIN 100 MG CAP PO SCH (09:36)
[2016-06-12 12:40] LABS: Anion Gap 8 mmol/L; Blood Urea Nitrogen 10 mg/dL (7-17); Calcium 9.6 mg/dL (8.4-10.2); Carbon Dioxide 27 mmol/L (22-30); Chloride 101 mmol/L (98-107); Glucose 94 mg/dL (74-99); Non-African American GFR(MDRD) >60 (>60 ml/min/1.73 sqM); Potassium 4.4 mmol/L (3.5-5.1); Sodium 136 mmol/L (137-145)
[2016-06-12] MEDS: CALCIUM CARB-VIT D 500MG-200UN 1 EACH TAB PO SCH (12:56)
--- NOTE | 2016-06-12 13:05 | P.PN ---
Progress Note - Text CLINICAL PROBLEMS: Ms. Hogan is 45-year-old female who has history of a schizophrenia. She presented to unit involuntarily. She is under 1 year continuing treatment order dated 10/29/2015. On presentation to unit she complained of feeling weak and fatigued. She alleged that she is unable to walk and expressed somatic delusional beliefs. 24 HOUR EVENTS: She ate 10% of breakfast yesterday and did not eat lunch, dinner or at bedtime snack. She gets out of bed only for toileting or when ordered by nursing staff. She does not participate in therapeutic groups or activities. She does socialize with staff or peers. EXAMINATION: She was laying in bed and refused to get up for the interview. She presented as a pale and frail appearing 45-year-old woman who looks older than her stated age. He complained that she is too weak to get up or walk. She thinks that she has lost calcium other bones and that she is weak because she has a blood clot. She made intermittent eye contact and participated minimally in the interview. She feels hopeless and helpless but denied feelings of worthlessness. She denied experiencing auditory or visual hallucinations. Her thinking was concrete and her associations were not fully coherent and logical. PERTINENT DATA: Her weight was 74.8 kg. She is able to get out of bed and walk unassisted to the bathroom. ASSESSMENT: She remains severely withdrawn and refuses adequate nutrition. He continues to maintain fragmented somatic delusional beliefs. PLAN: Continue inpatient psychiatric hospitalization due to the severity of her withdrawal. Increase Abilify to 20 mg at bedtime. Continue Luvox 150 mg daily , Neurontin 100 mg 3 times a day and Flexeril 10 mg at bedtime. Continue order to be out of bed for meals. Consult medicine regarding need for anticoagulants given her refusal to get out of bed and history of DVT. Repeat basic metabolic panel. Encourage hydration and eating meals. Continue supplements as recommended by the dietitian. Evaluate clinical status response to treatment on a daily basis.
[2016-06-12] MEDS: ENOXAPARIN 40 MG/0.4 ML SYRINGE SQ SCH (15:17)
[2016-06-12] MEDS: GABAPENTIN 300 MG CAP PO SCH ×2 (16:04→20:34)
[2016-06-12] MEDS: CYCLOBENZAPRINE 10 MG TAB PO SCH (20:34)
[2016-06-13] MEDS: DOCUSATE 100 MG CAP PO SCH ×2 (09:24→20:37)
[2016-06-13] MEDS: ENOXAPARIN 40 MG/0.4 ML SYRINGE SQ SCH (09:24)
[2016-06-13] MEDS: FAMOTIDINE 20 MG TAB PO SCH (09:24)
[2016-06-13] MEDS: MAGNESIUM OXIDE 400 MG TAB PO SCH (09:24)
[2016-06-13] MEDS: GABAPENTIN 300 MG CAP PO SCH ×3 (09:24→20:38)
[2016-06-13] MEDS: CALCIUM CARB-VIT D 500MG-200UN 1 EACH TAB PO SCH (12:21)
--- NOTE | 2016-06-13 12:33 | P.PN ---
Progress Note - Text Interval history: Patient is seen in her room with female staff present. She is found in her room lying in bed. She is cooperative with the interview. She relays that her stomach is bothering her. She states that she had Ivana-en-Y surgery in the past and she can eat a lot. She does state that she has an appetite. She is seen in cross coverage today for Dr. Strauss. Mental status exam: She is found in her room lying in bed. She is alert and cooperative. Her affect is restricted. Her mood is described as "painful." She denies any thoughts of harm to self or others. She denies any auditory or visual hallucinations. She does not show any agitation. Plan: We'll maintain current psychotropic medication regimen. We will monitor for any medication side effects. Also monitor her eating/appetite. [address] Strauss through the weekend.
[2016-06-13] MEDS: CYCLOBENZAPRINE 10 MG TAB PO SCH (20:38)
[2016-06-14] MEDS: DOCUSATE 100 MG CAP PO SCH ×2 (08:33→21:00)
[2016-06-14] MEDS: ENOXAPARIN 40 MG/0.4 ML SYRINGE SQ SCH (08:33)
[2016-06-14] MEDS: GABAPENTIN 300 MG CAP PO SCH ×3 (08:34→20:59)
[2016-06-14] MEDS: FAMOTIDINE 20 MG TAB PO SCH (08:34)
[2016-06-14] MEDS: MAGNESIUM OXIDE 400 MG TAB PO SCH (08:34)
[2016-06-14] MEDS: CALCIUM CARB-VIT D 500MG-200UN 1 EACH TAB PO SCH (12:31)
--- NOTE | 2016-06-14 17:52 | P.PN ---
Progress Note - Text Interval history: Patient is seen in cross coverage today for Dr. Strauss. She reports that she's not feeling well today. Relays that her stomach is upset. She makes reference to feeling like she is owing to stroke out and relays that one of her peers is telling "haunting stories." Mental status exam: She is alert and cooperative with the interview. She appears tearful at one point. She is found in her room lying in bed. She describes that her mood is down related to her stomach being upset. She denies any thoughts of harm to self or others. She denies any hallucinations. She makes reference to a peer telling "haunting stories." She makes reference to feeling like she is going to pass out. She does not show any significant agitation. She makes reference to her medications being poisonous. Plan: We will maintain current psychotropic medications. Patient states that she is compliant with the medications but she makes reference to them being poisonous. She is given encouragement regarding compliance. Dr. Strauss will be following up with this patient tomorrow. We will have nursing staff check her vital signs. Continue to monitor for any medication side effects.
[2016-06-14] MEDS: ACETAMINOPHEN TAB 325 MG TAB PO PRN (20:09)
[2016-06-14] MEDS: LORazepam 1 MG TAB PO PRN (20:09)
[2016-06-14] MEDS: CYCLOBENZAPRINE 10 MG TAB PO SCH (20:59)
[2016-06-15] MEDS: ENOXAPARIN 40 MG/0.4 ML SYRINGE SQ SCH (09:31)
[2016-06-15] MEDS: DOCUSATE 100 MG CAP PO SCH ×2 (09:31→20:19)
[2016-06-15] MEDS: GABAPENTIN 300 MG CAP PO SCH ×3 (09:32→20:19)
[2016-06-15] MEDS: FAMOTIDINE 20 MG TAB PO SCH (09:32)
[2016-06-15] MEDS: MAGNESIUM OXIDE 400 MG TAB PO SCH (09:32)
[2016-06-15] MEDS: CALCIUM CARB-VIT D 500MG-200UN 1 EACH TAB PO SCH (13:28)
--- NOTE | 2016-06-15 14:05 | P.PN ---
Progress Note - Text CLINICAL PROBLEMS: Ms. Hogan is 45-year-old female who has history of a schizophrenia. She presented to unit involuntarily. She is under 1 year continuing treatment order dated 10/29/2015. She continues to complain of feeling weak and being without assistance. 24 HOUR EVENTS: She ate 75% of breakfast, 50% of function 50% of dinner yesterday. In addition, she consumed the areas supplements during breakfast, lunch and dinner. She slept 6 hours. She attended 1 group yesterday. EXAMINATION: She was laying in bed and refused to get up for the interview. She presented as a pale appearing 45-year-old woman who looks older than her stated age. He complained that she is too weak to get up or walk. She talked about her legs being red and inflamed. She made intermittent eye contact and participated minimally in the interview. She feels hopeless and helpless but denied feelings of worthlessness. She denied experiencing auditory or visual hallucinations. Her thinking was concrete and her associations were not fully coherent and logical. PERTINENT DATA: Her weight was 73.9 kg on 06/14/2016. She is able to get out of bed and walk unassisted to the bathroom. The cancer program consultant prescribed Lovenox 40 mg subcu daily on 06/12/2016 for DVT prophylaxis and increased Neurontin to 300 mg 3 times a day ASSESSMENT: She remains severely withdrawn but is eating more. He continues to maintain fragmented somatic delusional beliefs. PLAN: Continue inpatient psychiatric hospitalization due to the severity of her withdrawal. Continue Abilify to 20 mg at bedtime. Continue Luvox 150 mg daily , Neurontin 300 mg 3 times a day and Flexeril 10 mg at bedtime. Continue order to be out of bed for meals. Consult medicine regarding need for anticoagulants given her refusal to get out of bed and history of DVT. Repeat basic metabolic panel. Encourage hydration and eating meals. Continue supplements as recommended by the dietitian. Evaluate clinical status response to treatment on a daily basis.
[2016-06-15] MEDS: CYCLOBENZAPRINE 10 MG TAB PO SCH (20:19)
--- NOTE | 2016-06-15 21:14 | XR ---
EXAMINATION TYPE: XR chest 1V portable DATE OF EXAM: 06/15/2016 9:01 PM COMPARISON: 06/23/2014 HISTORY: Chest pain TECHNIQUE: Single frontal view of the chest is obtained. FINDINGS: There is mild linear density at the left lung base. The other lung [place] are clear. There are no hilar masses. Heart size is normal. Bony thorax is intact. IMPRESSION: There is mild subsegmental atelectasis and pleural reaction at the left lung base simila r to old exam. Normal heart.
[2016-06-16] MEDS: DOCUSATE 100 MG CAP PO SCH ×2 (08:09→21:46)
[2016-06-16] MEDS: GABAPENTIN 300 MG CAP PO SCH ×3 (08:11→21:58)
[2016-06-16] MEDS: FAMOTIDINE 20 MG TAB PO SCH (08:11)
[2016-06-16] MEDS: MAGNESIUM OXIDE 400 MG TAB PO SCH (08:12)
[2016-06-16] MEDS: ENOXAPARIN 40 MG/0.4 ML SYRINGE SQ SCH (08:16)
[2016-06-16] MEDS: CALCIUM CARB-VIT D 500MG-200UN 1 EACH TAB PO SCH (12:59)
--- NOTE | 2016-06-16 13:10 | P.PN ---
Progress Note - Text CLINICAL PROBLEMS: Ms. Hogan has a history of a schizophrenia and noncompliance with treatment . Shante was admitted to the unit involuntarily under a one-year continuing order. She was lost to follow-up at [facility]. She presented to unit with complaints of fatigue and generalized weakness. She refuses to get out of bed except when ordered by nursing staff. She is now alleging that she cannot walk because she has blood clots in her legs. 24 HOUR EVENTS: She ate 50% of breakfast, 25% of lunch and 25% of dinner yesterday. She drank most of the nutritional supplements. She did not attend therapeutic groups or activities. She spends most of her time in bed. She does not socialize with staff or peers. EXAMINATION: She presented as a thin and pale appearing 45-year-old woman who looks much older than her stated age. She was laying in bed and would not get out of bed for the interview. She complained of feeling too weak to stand or walk. Her speech was not spontaneous. Her affect was flat. She denied suicidal ideation or wishes. She denied homicidal ideation. She expressed feelings of hopelessness and helplessness. She ruminated on her physical weakness. She has to belief that she cannot walk.because she has blood clots in her legs. She did not express ideas reference or paranoid ideation. Her thinking was concrete and associations were not coherent or logical. She did not appear to be responding to internal stimuli. PERTINENT DATA: Her weight was 73.9 kg this morning ASSESSMENT: She appears severely mentally ill and mentally improve from admission. However, her appetite has improved. She continued to express somatic delusional beliefs. PLAN: Continue inpatient psychiatric hospitalization. The Abilify 20 mg daily until her next injection of Abilify Maintena 400 mg. Continue Luvox 150 mg at bedtime, Neurontin 3 mg 3 times a day Flexeril 10 mg at bedtime and Ativan 1 mg by mouth/IM every hours when necessary for agitation. She is to be out of bed for meals.
[2016-06-16] MEDS: LORazepam 1 MG TAB PO PRN (14:43)
[2016-06-16] MEDS: ACETAMINOPHEN TAB 325 MG TAB PO PRN ×2 (14:43→18:48)
[2016-06-16] MEDS: CYCLOBENZAPRINE 10 MG TAB PO SCH (21:48)
[2016-06-17] MEDS: MAGNESIUM OXIDE 400 MG TAB PO SCH (09:17)
[2016-06-17] MEDS: DOCUSATE 100 MG CAP PO SCH ×2 (09:17→20:37)
[2016-06-17] MEDS: ENOXAPARIN 40 MG/0.4 ML SYRINGE SQ SCH (09:18)
[2016-06-17] MEDS: FAMOTIDINE 20 MG TAB PO SCH (09:19)
[2016-06-17] MEDS: GABAPENTIN 300 MG CAP PO SCH ×3 (09:20→20:37)
[2016-06-17] MEDS: CALCIUM CARB-VIT D 500MG-200UN 1 EACH TAB PO SCH (12:18)
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
[2016-06-17] MEDS: CYCLOBENZAPRINE 10 MG TAB PO SCH (20:37)
[2016-06-17] MEDS: MAG HYDROX/AL HYDROX/SIMETH 30 ML CUP PO PRN (20:37)
[2016-06-18] MEDS: MAGNESIUM OXIDE 400 MG TAB PO SCH (09:54)
[2016-06-18] MEDS: FAMOTIDINE 20 MG TAB PO SCH (09:54)
[2016-06-18] MEDS: ENOXAPARIN 40 MG/0.4 ML SYRINGE SQ SCH (09:54)
[2016-06-18] MEDS: GABAPENTIN 300 MG CAP PO SCH ×3 (09:54→20:29)
[2016-06-18] MEDS: DOCUSATE 100 MG CAP PO SCH ×2 (09:54→20:29)
[2016-06-18] MEDS: CALCIUM CARB-VIT D 500MG-200UN 1 EACH TAB PO SCH (12:40)
--- NOTE | 2016-06-18 13:16 | P.PN ---
Progress Note - Text SUBJECTIVE: I reviewed the medical record, interviewed Ms. Hogan and discussed her treatment and treatment plan during team meeting. She was sitting in the dining room eating breakfast this morning when I first approached her. After breakfast she return to bed and refused to participate in therapeutic activities. She complained of feeling tired and fatigued. She also complained of the compressing stockings causing pain in her legs. I explained that if she were more active we will be able to remove the compression stockings. When asked her why she does not attend therapeutic groups or activities she replied that she is "too tired." OBJECTIVE: She presented as a thin and pale appearing 45-year-old woman who looks older than his stated age. She was laying in bed and would not sit up for the interview. She made eye contact and appeared to attend to the interview. She had marked psychomotor retardation. Her speech was nonspontaneous and had decreased volume and rhythm. Her affect was flat and depressed. She denied suicidal ideation or wishes. She denied homicidal ideation. She feels hopeless and helpless. She ruminated about her. Fatigue and physical weakness. She did not express ideas reference, paranoid ideation or delusional thoughts. Thinking was concrete but her associations were logical. She denied hallucinations and did not appear to be responding to internal stimuli. She attended the afternoon social skills group yesterday. She's been compliant with prescribed medication. She denied 50% of breakfast, 25% of lunch and 75% of dinner yesterday. ASSESSMENT: She continues to refuse to attend therapeutic groups and activities. However she is eating most of her meals. She continues to complain of chronic and disabling fatigue and weakness. There is no evidence of psychosis. PLAN: Continue inpatient hospitalization. Continue Abilify 20 mg at bedtime. Increase Luvox to 100 mg twice a day. Continue order to be out of bed for males. Encourage participation in therapeutic groups and activities. Encourage full compliance with diet and monitor her dietary intake. Encourage participation in therapeutic groups and activities. Evaluate clinical status response to treatment on a daily basis.
[2016-06-18] MEDS: CYCLOBENZAPRINE 10 MG TAB PO SCH (20:29)
[2016-06-18] MEDS: MAG HYDROX/AL HYDROX/SIMETH 30 ML CUP PO PRN (22:15)
[2016-06-19] MEDS: FAMOTIDINE 20 MG TAB PO SCH (08:47)
[2016-06-19] MEDS: DOCUSATE 100 MG CAP PO SCH ×2 (08:47→20:28)
[2016-06-19] MEDS: ENOXAPARIN 40 MG/0.4 ML SYRINGE SQ SCH (08:47)
[2016-06-19] MEDS: GABAPENTIN 300 MG CAP PO SCH ×3 (08:47→20:29)
[2016-06-19] MEDS: MAGNESIUM OXIDE 400 MG TAB PO SCH (08:47)
[2016-06-19] MEDS: CALCIUM CARB-VIT D 500MG-200UN 1 EACH TAB PO SCH (13:24)
--- NOTE | 2016-06-19 13:41 | P.PN ---
Progress Note - Text SUBJECTIVE: I reviewed the medical record, interviewed Ms. Hogan and discussed her treatment and treatment plan during team meeting. She came out of bed this morning without prompting by nursing staff. Her only complaint was abdominal pain from the Lovenox injection. I explained that we will stop the Lovenox if she would get out of bed and be more active. She talked about wanting to become more involved with the therapeutic groups and activities. OBJECTIVE: She presented as a casually groomed (she had combed her hair for the first time) 45-year-old female. She was dressed in hospital gown. She was pleasant on approach and made eye contact. She had a blunted but bright facial expression. She had psychomotor retardation but no abnormal involuntary movements. Her gait was slow but steady. She walked with the assistance of a walker. Her speech was not spontaneous but had decreased rate and rhythm. Her affect was depressed and not reactive. She denied suicidal ideation or wishes. She expresses feelings of hopelessness and helplessness. She did not ruminate about her subjective weakness and lack of energy. She did not express ideas reference, paranoid ideation or delusional thinking. She did not talk about or express somatic delusional beliefs. Her thinking was concrete but her associations appeared coherent. She 75% of breakfast yesterday morning and 100% of breakfast this morning. She attended activity therapy group this morning. ASSESSMENT: She is showing more effort to get out of bed and participate in activities. Overall, she appears severely mentally ill and moderately improved from admission. PLAN: Continue inpatient psychiatric hospitalization. Continue the order that she is to be out of bed for meals and encourage her to be out of bed for therapeutic groups and activities. Continue Abilify 20 mg daily and Luvox 100 mg twice a day. Continue to monitor nutritional and fluid intake. Evaluate clinical status response to treatment on a daily basis.
[2016-06-19] MEDS: CYCLOBENZAPRINE 10 MG TAB PO SCH (20:28)
[2016-06-19] MEDS: LORazepam 1 MG TAB PO PRN (22:55)
[2016-06-20] MEDS: ACETAMINOPHEN TAB 325 MG TAB PO PRN ×2 (05:30→16:35)
[2016-06-20] MEDS: ENOXAPARIN 40 MG/0.4 ML SYRINGE SQ SCH (10:00)
[2016-06-20] MEDS: FAMOTIDINE 20 MG TAB PO SCH (10:00)
[2016-06-20] MEDS: MAGNESIUM OXIDE 400 MG TAB PO SCH (10:00)
[2016-06-20] MEDS: DOCUSATE 100 MG CAP PO SCH (10:00)
[2016-06-20] MEDS: GABAPENTIN 300 MG CAP PO SCH ×2 (10:00→15:43)
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
[2016-06-20] MEDS: CALCIUM CARB-VIT D 500MG-200UN 1 EACH TAB PO SCH (12:10)
[2016-06-20] MEDS ORDERED: DOCUSATE 100 MG CAP ONE (21:00)
[2016-06-20] MEDS ORDERED: ACETAMINOPHEN TAB 325 MG TAB ONE (21:00)
[2016-06-20] MEDS ORDERED: GABAPENTIN 300 MG CAP ONE (21:00)
[2016-06-20] MEDS ORDERED: CYCLOBENZAPRINE 10 MG TAB ONE (21:00)
[2016-06-20] MEDS ORDERED: MAG HYDROX/AL HYDROX/SIMETH 30 ML CUP ONE (21:00)
[2016-06-20] MEDS: LORazepam 1 MG TAB PO PRN (23:34)
[2016-06-21] MEDS: ACETAMINOPHEN TAB 325 MG TAB PO PRN ×3 (03:10→20:54)
[2016-06-21] MEDS: FAMOTIDINE 20 MG TAB PO SCH (08:39)
[2016-06-21] MEDS: LORazepam 1 MG TAB PO PRN (08:39)
[2016-06-21] MEDS: MAGNESIUM OXIDE 400 MG TAB PO SCH (08:39)
[2016-06-21] MEDS: ENOXAPARIN 40 MG/0.4 ML SYRINGE SQ SCH (08:40)
[2016-06-21] MEDS: DOCUSATE 100 MG CAP PO SCH ×3 (10:45→20:53)
[2016-06-21] MEDS: GABAPENTIN 300 MG CAP PO SCH ×4 (10:46→20:53)
--- NOTE | 2016-06-21 11:25 | P.PN ---
Progress Note - Text Interval history: The patient is found in group she follows me to an interview room. The patient has been participating in group activities all morning. She is dressed in her own clothing she is ambulating with a walker. She states that she is trying harder today. Her primary concern is where she will be going as she feels she can no longer stay at her previous residence. She has no questions or concerns regarding her medications. She reports her appetite was improved this morning. Mental status exam: The patient is alert she is mildly disheveled she is dressed in her own clothing she is ambulating with a walker without difficulty. She has spontaneous speech and answers questions asked of her. She is reporting no suicidal or homicidal ideation intent or plan. She can be somatically preoccupied. She demonstrates no verbal or physical aggressiveness. Insight and judgment seems to be improved today. She is oriented. She is endorsing no auditory or visual hallucinations. She does not appear hypomanic or manic. He Plan: The patient will continue on her current medications. Her efforts in attending groups were recognized and validated. She is encouraged to continue that activity. Vital signs reviewed.
[2016-06-21] MEDS: CALCIUM CARB-VIT D 500MG-200UN 1 EACH TAB PO SCH (11:54)
[2016-06-21] MEDS: CYCLOBENZAPRINE 10 MG TAB PO SCH ×2 (18:30→22:12)
[2016-06-21] MEDS: MAG HYDROX/AL HYDROX/SIMETH 30 ML CUP PO PRN (20:53)
[2016-06-22] MEDS: DOCUSATE 100 MG CAP PO SCH ×2 (08:45→20:47)
[2016-06-22] MEDS: ENOXAPARIN 40 MG/0.4 ML SYRINGE SQ SCH (08:46)
[2016-06-22] MEDS: FAMOTIDINE 20 MG TAB PO SCH (08:46)
[2016-06-22] MEDS: MAGNESIUM OXIDE 400 MG TAB PO SCH (08:47)
[2016-06-22] MEDS: GABAPENTIN 300 MG CAP PO SCH ×3 (08:47→22:38)
[2016-06-22] MEDS: CALCIUM CARB-VIT D 500MG-200UN 1 EACH TAB PO SCH (08:47)
[2016-06-22] MEDS: LORazepam 1 MG TAB PO PRN (10:49)
--- NOTE | 2016-06-22 13:11 | P.PN ---
Progress Note - Text SUBJECTIVE: I reviewed the medical record, interviewed Ms. Hogan and discussed her treatment and treatment plan during team meeting. She complained of abdominal pain from the Lovenox injection and complained of pain in her toes. She continues to complain of feeling fatigued but stated that she is "trying to" participate more in activities. OBJECTIVE: She presented as a casually groomed 45-year-old female. She was dressed in hospital gown. She was pleasant on approach and made eye contact. She had a blunted but bright facial expression. She had psychomotor retardation but no abnormal involuntary movements. Her gait was slow but steady. She walked with the assistance of a walker. Her speech was not spontaneous but had decreased rate and rhythm. Her affect was depressed and not reactive. She denied suicidal ideation or wishes. She expresses feelings of hopelessness and helplessness. She did not ruminate about her subjective weakness and lack of energy. She did not express ideas reference, paranoid ideation or delusional thinking. She did not talk about or express somatic delusional beliefs. Her thinking was concrete but her associations appeared coherent. She participated in all therapeutic groups and activities yesterday. She 50% of breakfast, 100% of lunch and 100% of dinner yesterday. ASSESSMENT: She is anticipating more in therapeutic groups and activities. However, she remains somatically preoccupied but is not expressing somatic delusional beliefs. Overall, she appears severely mentally ill and moderately improved from admission. PLAN: Continue inpatient psychiatric hospitalization. Continue the order that she is to be out of bed for meals and encourage her to be out of bed for therapeutic groups and activities. Continue Abilify 20 mg daily and Luvox 100 mg twice a day. Continue to monitor nutritional and fluid intake. Encourage continued participation in therapeutic groups and activities. We can discontinue the Lovenox when she is more physically active. Evaluate clinical status response to treatment on a daily basis.
[2016-06-22] MEDS: ACETAMINOPHEN TAB 325 MG TAB PO PRN (13:21)
[2016-06-22] MEDS: MAG HYDROX/AL HYDROX/SIMETH 30 ML CUP PO PRN ×2 (14:10→21:08)
[2016-06-22 15:05] VITALS: BMI 29.5
[2016-06-22] MEDS: CYCLOBENZAPRINE 10 MG TAB PO SCH (20:47)
[2016-06-23] MEDS: DOCUSATE 100 MG CAP PO SCH ×2 (09:12→20:59)
[2016-06-23] MEDS: MAGNESIUM OXIDE 400 MG TAB PO SCH (09:13)
[2016-06-23] MEDS: ENOXAPARIN 40 MG/0.4 ML SYRINGE SQ SCH (09:13)
[2016-06-23] MEDS: FAMOTIDINE 20 MG TAB PO SCH (09:15)
[2016-06-23] MEDS: GABAPENTIN 300 MG CAP PO SCH ×3 (09:15→20:59)
[2016-06-23] MEDS: CALCIUM CARB-VIT D 500MG-200UN 1 EACH TAB PO SCH (12:48)
[2016-06-23] MEDS: ACETAMINOPHEN TAB 325 MG TAB PO PRN ×2 (12:48→18:41)
--- NOTE | 2016-06-23 13:06 | P.PN ---
Progress Note - Text SUBJECTIVE: I reviewed the medical record, interviewed Ms. Hogan and discussed her treatment and treatment plan during team meeting. She complained of leg pain aggravated by walking. The leg pain is present throughout her legs from heel to her hip. She continues to complain of fatigue and tiredness. OBJECTIVE: She presented as a thin disheveled appearing 45-year-old woman who was pleasant on approach. She made eye contact and appeared to attend to the interview. She walked with the aid of a walker. Her gait was slow but steady. She had psychomotor retardation but no abnormal involuntary movements. Her speech was spontaneous with decreased rate, rhythm and volume. Her affect was depressed and not reactive. She denied suicidal ideation or wishes. She feels hopeless and helpless. She did not express ideas reference, paranoid thoughts or delusional beliefs. She did not express somatic delusional beliefs. Her thinking was concrete but her associations were not fully coherent and logical. She denied hallucinations and did not appear to be responding to internal stimuli. She attended 3 AT groups yesterday. She atr 100% of breakfast, 50% of lunch, 20 % of dinner and 100% of her at bedtime snack. She also consumed the nutritional supplement offered to her at breakfast, lunch and dinner. ASSESSMENT: She is walking with the assistance of a mobile walker. She continues to complain of fatigue and now complains of leg pain that she attributes to us forcing her to walk. She is not expressing somatic delusional beliefs. PLAN: Continue inpatient hospitalization pending [facility] in a jail. Continue Abilify 20 mg daily, 400 mg IM monthly and Luvox 100 mg by mouth twice a day. Continue Flexeril 10 mg at bedtime and Neurontin 3 mg 3 times a day as recommended by medicine. Continue to monitor compliance with meals and encourage participation in therapeutic groups and activities. Evaluate clinical status response to treatment on a daily basis.
[2016-06-23] MEDS: LORazepam 1 MG TAB PO PRN (13:59)
[2016-06-23] MEDS: MAG HYDROX/AL HYDROX/SIMETH 30 ML CUP PO PRN (20:59)
[2016-06-23] MEDS: CYCLOBENZAPRINE 10 MG TAB PO SCH (21:00)
[2016-06-24] MEDS: DOCUSATE 100 MG CAP PO SCH ×2 (09:48→20:48)
[2016-06-24] MEDS: MAGNESIUM OXIDE 400 MG TAB PO SCH (09:49)
[2016-06-24] MEDS: FAMOTIDINE 20 MG TAB PO SCH (09:50)
[2016-06-24] MEDS: GABAPENTIN 300 MG CAP PO SCH ×3 (09:50→20:48)
[2016-06-24] MEDS: CALCIUM CARB-VIT D 500MG-200UN 1 EACH TAB PO SCH (11:48)
--- NOTE | 2016-06-24 13:29 | P.PN ---
Progress Note - Text SUBJECTIVE: I reviewed the medical record, interviewed Ms. Hogan discussed her treatment and treatment plan during team meeting. As usual, she complained of being fatigued and tired. She complains that she has difficulty walking and complained that we are forcing her to walk. OBJECTIVE: She presented as a thin pale appearing 45-year-old woman who looks much older stated age. She was walking with the assistance of a wheeled walker. Her gait was slow but steady. She had a flat facial expression. She showed psychomotor retardation. Her speech was not spontaneous. Her affect was blunted but stable and appropriate. She denied suicidal ideation or wishes. She expressed feelings of hopelessness and helplessness. She did not express ideas reference, paranoid ideation or delusional thoughts. Her thinking was concrete but her associations were coherent and logical. She denied hallucinations and did not appear to responding to internal stimuli. She ate 50% of breakfast, 100% of function 25% of dinner yesterday. She attended no therapeutic groups or activities. She slept 6 hours last night ASSESSMENT: She continued to show marked negative symptoms of schizophrenia. Overall, she appears moderately mentally ill and moderately improved from admission. PLAN: Continue inpatient psychiatric hospitalization pending placement and foster home. Continue current psychotropic medications including Abilibyl 20 mg daily and Luvox 100 mg twice a day. Continue Flexeril 10 mg at bedtime and Neurontin 3 mg by mouth 3 times a day as recommended by the human resources consultant. Continue order that she must be out of bed for meals. Encourage walking. Consider removing the walker and says that she walk unassisted. Encourage participation in therapeutic groups and activities. Evaluate clinical status response to treatment on a daily basis.
[2016-06-24] MEDS: MAG HYDROX/AL HYDROX/SIMETH 30 ML CUP PO PRN ×2 (18:38→22:25)
[2016-06-24] MEDS: CYCLOBENZAPRINE 10 MG TAB PO SCH (20:48)
[2016-06-25] MEDS: ACETAMINOPHEN TAB 325 MG TAB PO PRN (00:36)
[2016-06-25 06:05] VITALS: RESP 16; TEMP 97.5
[2016-06-25] MEDS: FAMOTIDINE 20 MG TAB PO SCH (09:53)
[2016-06-25] MEDS: GABAPENTIN 300 MG CAP PO SCH (09:53)
[2016-06-25] MEDS: MAGNESIUM OXIDE 400 MG TAB PO SCH (09:53)
[2016-06-25] MEDS: DOCUSATE 100 MG CAP PO SCH (09:54)
[2016-06-25 11:34] VITALS: BP 115/64; PULSE 69
[2016-06-25] MEDS: CALCIUM CARB-VIT D 500MG-200UN 1 EACH TAB PO SCH (12:54)
--- NOTE | 2016-06-25 13:41 | P.DS ---
Providers Date of admission: 06/02/16 19:24 Attending physician: Kit Strauss MD Consults: 06/02/16 19:26 Consult Physician Routine Consulting Provider: Brady Chairez Consult Reason/Comments: Follow up H & P Do you want consulting provider notified?: Yes 06/06/16 13:36 Consult Physician Routine Consulting Provider: Brady Chairez Consult Reason/Comments: c/o generalized weakness and refusing to walk. Need poss. DVT prevention Do you want consulting provider notified?: Yes 06/12/16 11:41 Consult Physician Routine Consulting Provider: Brady Chairez Consult Reason/Comments: refusing to get out of bed. history of a DVT. Should we anticoagulate? Do you want consulting provider notified?: Yes Primary care physician: Carlitos Jiangt - Discharge Diagnosis(es) (1) Poor compliance with medication Current Visit: Yes Status: Chronic Priority: High (2) Alcohol use disorder, moderate, dependence Current Visit: Yes Status: Chronic Priority: Medium (3) Fatigue Current Visit: Yes Status: Acute Priority: High (4) Acute exacerbation of chronic schizophrenia Current Visit: No Status: Acute Priority: High Hospital Course: Ms. Hogan is a 45-year-old female who has a history of a schizophrenia. She stated that she came to the hospital because "I couldn't remember my medications. My apartment is hot. It is only a 1 room apartment." She was minimally cooperative with the initial interview. She refused to get out of bed complaining that she is too weak. She pointed to a fall risk bracelet as proof that she is too weak to get out of bed. She presented to [facility] on 06/02/2016 with complaints of poor sleep , fatigue and aches and pains. The ACT team from [facility] learned of her presentation to [facility]. According to information in the record she had been missing from the ACT team for month and half. She is under a 1 year continuing treatment order dated 10/29/2015. She told the EPS nurse that she was staying "[facility]" and he kept getting drunk and high which kept away from [facility]. She has not been complaint with her prescribed medications. She claimed that she was "burning up inside". According to record she was first hospitalized in the at approximately 1986. This is her seventh admission to this unit since 2010. She was last discharged in June 2014 with a diagnosis of this paranoid type schizophrenia. Her discharge medications included Haldol 5 mg daily. According to information from [facility] she has a diagnosis of schizoaffective disorder lo. Her current medications are: Abilify maintaining a 400 mg IM every 4 weeks, clonazepam 2 mg at bedtime and Luvox 100 mg daily. The Invega Sustenna was discontinued on 07/2015. We admitted her to the psychiatric unit under the care of this typewriter operator automatic. We provided a biopsychosocial assessment. The regional sales consultant completed initial physical exam and medical history and diagnosed a history of hypertension, history of obesity, status post role and why surgery, history of gastroesophageal reflux and tobacco use disorder. Medicine reconsulted on 06/18 regarding her complaints of fatigue and generalized aches and pains. The regional sales consultant noted that the generalized myalgia is suspicious of fibromyalgia or fibromyositis and ordered several medical tests including cortisol level, a day , sed rate, CRP and CCP. The regional sales consultant recommended gabapentin 100 mg 3 times a day and Flexeril 10 mg at bedtime. Her cortisol level was 15. The CCP IgG was 6, and a screen was positive, he denied titer was 180 and the ADOLFO pattern was much less. We continued Os-Rashaun 500+ D1 tablet daily, Pepcid 20 mg daily, magnesium oxide 400 mg daily. We continued Luvox and titrated dose to 100 mg twice a day. We restarted Abilify and titrated dose to 20 mg daily. She received an injection of Abilify Maintena on 400 mg on 06/03/2016. She refused to get out of bed except to toilet during the first 2 weeks of her admission. Nursing gradually transitioned her from the use of a wheelchair to ambulation with the aid of a walker. She refused to eat the first week of admission but drank adequate fluids. She complained of generalized pain and weakness throughout the hospitalization. Her complaints fluctuates in intensity in relationship to her level of distress. For example, on the morning of discharge she complains of "intense" and generalized pain because her roommate, who was acutely manic, kept her up throughout the night. For the week prior to admission she was attending most therapeutic groups and activities. She was eating all her meals. She was getting out of bed without being prompted by nursing staff. She denied psychotic symptoms such as auditory or visual hallucinations, ideas reference, thought insertion, thought broadcasting or thought control. She expresses feelings of hopelessness and helplessness regarding her chronic fatigue but denied thoughts of or suicidal ideation. She is scheduled to have her next injection of Abilify Maintena on . Patient Condition at Discharge: Stable Plan - Discharge Summary New Discharge Prescriptions: ARIPiprazole [Abilify] 20 mg PO DAILY #30 tab ARIPiprazole [Abilify Maintena] 400 mg IM Q28D #1 Calcium Carbonate/Vitamin D3 [Calcium 600-Vit D3 800 Tab] 1 tab PO DAILY #30 Cyclobenzaprine [Flexeril] 10 mg PO HS #30 tab Famotidine [Pepcid] 20 mg PO DAILY #30 fluvoxaMINE MALEATE [Luvox] 100 mg PO BID #60 Gabapentin [Neurontin] 600 mg PO TID #180 cap Magnesium Oxide [Mag-Ox] 400 mg PO DAILY #30 Discharge Medication List ARIPiprazole [Abilify Maintena] 400 mg IM Q28D #1 06/25/16 [Rx] ARIPiprazole [Abilify] 20 mg PO DAILY #30 tab 06/25/16 [Rx] Calcium Carbonate/Vitamin D3 [Calcium 600-Vit D3 800 Tab] 1 tab PO DAILY #30 [Rx] Cyclobenzaprine [Flexeril] 10 mg PO HS #30 tab 06/25/16 [Rx] Famotidine [Pepcid] 20 mg PO DAILY #30 06/25/16 [Rx] Gabapentin [Neurontin] 600 mg PO TID #180 cap 06/25/16 [Rx] Magnesium Oxide [Mag-Ox] 400 mg PO DAILY #30 06/25/16 [Rx] fluvoxaMINE MALEATE [Luvox] 100 mg PO BID #60 06/25/16 [Rx] Follow up Appointment(s)/Referral(s): Carlitos Wooten MD [Primary Care Provider] - 1-2 days Discharge Disposition: HOME SELF-CARE
[2016-06-25] MEDS ORDERED: GABAPENTIN 300 MG CAP PO SCH (16:00)
== END 2016-06-25 18:31 | disposition home or self-care (01) | DRG 885 ==
LOC: EC 13:57 → 3MHU 19:24
PROVIDERS: ADMIT Psychiatry & Neurology Psychiatry; ATTEND Psychiatry & Neurology Psychiatry
DX: F20.5 Residual schizophrenia (principal); I11.9 Hypertensive heart disease without heart failure; Z91.14 Patient's other noncompliance with medication regimen; F10.20 Alcohol dependence, uncomplicated; F17.210 Nicotine dependence, cigarettes, uncomplicated; J44.9 Chronic obstructive pulmonary disease, unspecified; K21.9 Gastro-esophageal reflux disease without esophagitis; M79.7 Fibromyalgia; Z79.899 Other long term (current) drug therapy; Z86.718 Personal history of other venous thrombosis and embolism; Z91.19 Patient's noncompliance with other medical treatment and regimen; Z91.81 History of falling; Z88.5 Allergy status to narcotic agent; Z91.040 Latex allergy status
CPT/HCPCS: 71010; 80048; 80053; 80306; 81003; 81025; 82533; 82550; 82553; 82607; 84443; 84550; 85025; 85652; 86038; 86039; 86140; 86200; 87086; 93005

== ENCOUNTER → 2017-04-13 | Outpatient (CLI) | payer MEDICARE, MEDICAID ==
--- NOTE | 2017-04-13 19:57 | XR ---
EXAMINATION TYPE: XR abdomen complete w decub DATE OF EXAM: 04/13/2017 CLINICAL DATA: 46-year-old female with abdominal pain, [facility] COMPARISON: None FINDINGS: Lung bases are clear. No evidence for free intraperitoneal air. Cholecystectomy clips. Surgical changes below the GE junction. A few small air-fluid levels are present within the upper and mid abdomen. Colonic gas is also presen t. No significant stool burden. Phlebolith in the right hemipelvis. IMPRESSION: 1. A few small air-fluid levels in the upper and mid abdomen could be transient or could represent a mild regional ileus or enteritis. 2.No evidence of bowel obstruction or free intraperitoneal air.
== END | disposition home or self-care (01) ==
LOC: RADXRMAIN 15:58
PROVIDERS: ATTEND Nurse Practitioner
DX: R10.84 Generalized abdominal pain (principal)
CPT/HCPCS: 74021

== ENCOUNTER → 2017-05-18 | Outpatient (CLI) | payer MEDICARE, OTHER ==
--- NOTE | 2017-05-18 12:31 | XR ---
EXAMINATION TYPE: XR lumbosacral spine min 4V DATE OF EXAM: 05/18/2017 CLINICAL HISTORY: pain COMPARISON: NONE TECHNIQUE: Frontal, lateral, and oblique images of the lumbar spine are obtained. FINDINGS: There are 5 lumbar type vertebral bodies identified. The lumbar spine shows satisfactory alignment without evidence of acute fracture or dislocation. Vertebral body heights are within normal limits. Mild degenerative disc space narrowing. Spondylosis noted. The overlying soft tissue appea rs unremarkable. IMPRESSION: No acute fracture or dislocation is seen in the lumbar spine.ICD 10 NO FRACTURE, INITIAL EVALUATION
== END | disposition home or self-care (01) ==
LOC: RADXRMAIN 12:14
PROVIDERS: ATTEND Nurse Practitioner
DX: M54.5 Low back pain (principal)
CPT/HCPCS: 72110

== ENCOUNTER → 2017-05-18 | Outpatient (CLI) | payer MEDICARE, OTHER ==
--- NOTE | 2017-05-18 15:16 | US ---
EXAMINATION TYPE: US venous doppler duplex LE BI DATE OF EXAM: 05/18/2017 1:29 PM COMPARISON: 05/01/2014 CLINICAL HISTORY: 46-year-old female Pain Bilateral Legs M79.661/M79.662. Intermittent bilateral lowe r leg pain and swelling x 1 year SIDE PERFORMED: Bilateral TECHNIQUE: The lower extremity deep venous system is examined utilizing real time linear array sonog gunjan with graded compression, doppler sonography and color-flow sonography. FINDINGS: VESSELS IMAGED: External Iliac Vein (EIV) Common Femoral Vein Deep Femoral Vein Greater Saphenous Vein * Femoral Vein Popliteal Vein Small Saphenous Vein * Proximal Calf Veins (* superficial vessels) Right Leg: Appears negative for DVT Left Leg: Appears negative for DVT IMPRESSION: No evidence for DVT within the bilateral lower extremities imaged from the groin to the upper calves.
== END | disposition home or self-care (01) ==
LOC: RADUSWWP 13:00
PROVIDERS: ATTEND Family Medicine
DX: M79.661 Pain in right lower leg (principal); M79.662 Pain in left lower leg
CPT/HCPCS: 93970

== ENCOUNTER → 2017-09-11 | Outpatient (CLI) | payer MEDICARE, OTHER ==
[2017-09-11 09:34] LABS: Anisocytosis Slight; Basophils # (A) 0.1 k/uL (0-0.2); Basophils % (A) 1 %; Eosinophils # (A) 0.6 k/uL (0-0.7); Eosinophils % (A) 6 %; HCT 35.4 % (34.0-46.0); HGB 10.7 gm/dL (11.4-16.0); Hypochromasia Marked; Lymphocytes # (A) 2.1 k/uL (1.0-4.8); Lymphocytes % (A) 21 %; MCH 22.7 pg (25.0-35.0); MCHC 30.3 g/dL (31.0-37.0); MCV 75.1 fL (80.0-100.0); Mean Platelet Volume 6.7; Microcytosis Slight; Monocytes # (A) 0.4 k/uL (0-1.0); Monocytes % (A) 4 %; Neutrophils # (A) 6.6 k/uL (1.3-7.7); Neutrophils % (A) 66 %; Platelet Count 415 k/uL (150-450); RBC 4.72 m/uL (3.80-5.40); RDW 16.9 % (11.5-15.5)
[2017-09-11 10:00] LABS: ALT 25 U/L (9-52); AST 19 U/L (14-36); Albumin 4.2 g/dL (3.5-5.0); Alkaline Phosphatase 122 U/L (38-126); Anion Gap 9 mmol/L; Blood Urea Nitrogen 15 mg/dL (7-17); Calcium 9.7 mg/dL (8.4-10.2); Carbon Dioxide 31 mmol/L (22-30); Chloride 96 mmol/L (98-107); Cholesterol 201 mg/dL (<200); Glucose 100 mg/dL (74-99); HDL Cholesterol 73 mg/dL (40-60); LDL Cholesterol,Calculated 113 mg/dL (0-99); Magnesium 2.1 mg/dL (1.6-2.3); Potassium 4.1 mmol/L (3.5-5.1); Sodium 136 mmol/L (137-145); Total Bilirubin 0.2 mg/dL (0.2-1.3); Total Protein 7.1 g/dL (6.3-8.2); Triglycerides 76 mg/dL (<150)
[2017-09-11 10:13] LABS: T4, Free (Free Thyroxine) 1.03 ng/dL (0.78-2.19)
[2017-09-11 17:54] LABS: Hemoglobin A1C 6.3 % (4.0-6.0)
[2017-09-11 19:04] LABS: Vitamin D 25 Hydroxy 29.7 ng/mL (30.0-100.0)
== END | disposition home or self-care (01) ==
LOC: LABWHC1 08:55
PROVIDERS: ATTEND Nurse Practitioner
DX: Z00.01 Encounter for general adult medical examination with abnormal findings (principal); E11.65 Type 2 diabetes mellitus with hyperglycemia; Z79.899 Other long term (current) drug therapy
CPT/HCPCS: 36415; 80053; 80061; 82306; 82607; 83036; 83735; 84439; 84443; 85025

== ENCOUNTER 2018-04-23 12:06 | Inpatient (IN) | payer MEDICARE, MEDICAID ==
--- NOTE | 2018-04-23 12:28 | ED ---
General Adult HPI - General Stated complaint: Mental health Time Seen by Provider: 04/23/18 12:06 Source: RN notes reviewed - History of Present Illness Initial comments: This is a 47-year-old female who presents emergency department with past medical history significant for schizophrenia. Patient was expected by EPS because the act him and notified her that she would be coming in. Patient is nonverbal at this point patient is following simple commands. Patient had been petitioned by the acting prior to coming in. There is been no history of any trauma known recently. There is no mention of any recent illness. This is all the history we have at this time no but he came with the patient. - Related Data Previous Rx's Medication Instructions Recorded ARIPiprazole [Abilify Maintena] 400 mg IM Q28D #1 06/25/16 ARIPiprazole [Abilify] 20 mg PO DAILY #30 tab 06/25/16 Calcium Carbonate/Vitamin D3 1 tab PO DAILY #30 06/25/16 [Calcium 600-Vit D3 800 Tab] Cyclobenzaprine [Flexeril] 10 mg PO HS #30 tab 06/25/16 Famotidine [Pepcid] 20 mg PO DAILY #30 06/25/16 Gabapentin [Neurontin] 600 mg PO TID #180 cap 06/25/16 Magnesium Oxide [Mag-Ox] 400 mg PO DAILY #30 06/25/16 fluvoxaMINE MALEATE [Luvox] 100 mg PO BID #60 06/25/16 Allergies Allergy/AdvReac Type Severity Reaction Status Date / Time codeine Allergy Unknown Verified 06/03/16 05:06 ibuprofen Allergy Unknown Verified 06/03/16 05:06 latex Allergy Itching Verified 06/03/16 05:06 chlorpromazine HCl AdvReac Extreme Verified 06/03/16 05:06 [From Thorazine] Sedation fluphenazine enanthate AdvReac Extreme Verified 06/03/16 05:06 [From Prolixin] Sedation fluphenazine HCl AdvReac Extreme Verified 06/03/16 05:06 [From Prolixin] Sedation Review of Systems ROS Statement: Those systems with pertinent positive or pertinent negative responses have been documented in the HPI. ROS Other: All systems not noted in ROS Statement are negative. Past Medical History Past Medical History: COPD, Deep Vein Thrombosis (DVT), GERD/Reflux, H ypertension History of Any Multi-Drug Resistant Organisms: None Reported Past Surgical History: Bariatric Surgery, Section, Cholecystectomy, Hernia Repair, Tubal Ligation Past Anesthesia/Blood Transfusion Reactions: Blood Transfusion Reaction Additional Past Anesthesia/Blood Transfusion Reaction / Comment(s): Patient states "yes" but unable to provide details. Past Psychological History: Anxiety, Bipolar, Depression, Schizophrenia Smoking Status: Former smoker Past Alcohol Use History: None Reported Additional Past Alcohol Use History / Comment(s): pt states that she smokes 5 cigarettes a day in the past but none now and denies any ETOH or MJ or any other substance abuse Past Drug Use History: None Reported - Past Family History Mother Family Medical History: No Reported History Additional Family Medical History / Comment(s): Patient thinks her mother of old age. Father Family Medical History: No Reported History Additional Family Medical History / Comment(s): Father at age 93 from possible old age. Brother(s) Family Medical History: No Reported History Additional Family Medical History / Comment(s): Patient had 4 brothers and 2 have , one from lung cancer and one from ALS. Sister(s) Family Medical History: No Reported History Additional Family Medical History / Comment(s): Patient has 2 sisters and she does not know their medical problems. Son(s) Family Medical History: No Reported History Additional Family Medical History / Comment(s): Patient has one son that she gave up for adoption. General Exam - General Exam Comments Initial Comments: GENERAL: Patient is well-developed and well-nourished. Patient is nontoxic and well- hydrated and is in no acute distress. ENT: Neck is soft and supple. No significant lymphadenopathy is noted. Oropharynx is clear. Moist mucous membranes. Neck has full range of motion without eliciting any pain. EYES: The sclera were anicteric and conjunctiva were pink and moist. Extraocular movements were intact and pupils were equal round and reactive to light. Eyelids were unremarkable. PULMONARY: Unlabored respirations. Good breath sounds bilaterally. No audible rales rhonchi or wheezing was noted. CARDIOVASCULAR: There is a regular rate and rhythm without any murmurs gallops or rubs. ABDOMEN: Soft and nontender with normal bowel sounds. SKIN: Skin is clear with no lesions or rashes and otherwise unremarkable. NEUROLOGIC: Patient is alert and oriented cannot be assessed because patient will not speak. Cranial nerves II through XII are grossly intact motor is also intact. Cannot assess sensory. MUSCULOSKELETAL: Normal extremities with adequate strength and full range of motion. No lower extremity swelling or edema. No calf tenderness. LYMPHATICS: No significant lymphadenopathy is noted PSYCHIATRIC: Patient is not answering any questions and just staring off but does follow simple commands Medical Decision Making - Medical Decision Making I filled out a clinical surgery on this patient. Patient will be admitted. Disposition Clinical Impression: Schizophrenia, Poor compliance with medication Disposition: ADMITTED IP TO THIS HOSP Referrals: None,Stated [Primary Care Provider] - 1-2 days Time of Disposition: 12:28
[2018-04-23] MEDS ORDERED: MAGNESIUM HYDROXIDE 2,400 MG/10 ML CUP PO PRN (13:07)
[2018-04-23] MEDS ORDERED: MAG HYDROX/AL HYDROX/SIMETH 30 ML CUP PO PRN (13:07)
[2018-04-23] MEDS ORDERED: ALBUTEROL INHALER 60 PUFF/8 GM INHALER INHALATION STA (13:15)
[2018-04-23] MEDS: metFORMIN 500 MG TAB PO SCH (17:04)
[2018-04-23] MEDS: ACETAMINOPHEN TAB 325 MG TAB PO PRN (19:22)
[2018-04-23] MEDS: NITROFURANTOIN MONOHYD/M-CRYST 100 MG CAP PO SCH (22:10)
[2018-04-23] MEDS: CYCLOBENZAPRINE 10 MG TAB PO SCH (22:10)
[2018-04-24 08:27] LABS: Anisocytosis Slight; Basophils # (A) 0.1 k/uL (0-0.2); Basophils % (A) 1 %; Eosinophils # (A) 0.5 k/uL (0-0.7); Eosinophils % (A) 7 %; HCT 41.9 % (34.0-46.0); HGB 11.8 gm/dL (11.4-16.0); Hypochromasia Marked; Lymphocytes # (A) 2.3 k/uL (1.0-4.8); Lymphocytes % (A) 31 %; MCH 21.9 pg (25.0-35.0); MCHC 28.1 g/dL (31.0-37.0); MCV 77.9 fL (80.0-100.0); Microcytosis Slight; Monocytes # (A) 0.6 k/uL (0-1.0); Monocytes % (A) 7 %; Neutrophils # (A) 3.9 k/uL (1.3-7.7); Neutrophils % (A) 51 %; Platelet Count 509 k/uL (150-450); RBC 5.38 m/uL (3.80-5.40); RDW 19.3 % (11.5-15.5); WBC 7.5 k/uL (3.8-10.6)
[2018-04-24 08:38] LABS: Albumin 4.1 g/dL (3.5-5.0); Calcium 10.1 mg/dL (8.4-10.2); Potassium 4.7 mmol/L (3.5-5.1); Total Bilirubin 0.6 mg/dL (0.2-1.3)
[2018-04-24] MEDS: metFORMIN 500 MG TAB PO SCH ×2 (08:55→16:41)
[2018-04-24] MEDS: FAMOTIDINE 20 MG TAB PO SCH (08:55)
[2018-04-24] MEDS: LORATADINE 10 MG TAB PO SCH (08:55)
[2018-04-24] MEDS: CALCIUM CARB-VIT D 500MG-200UN 1 EACH TAB PO SCH (08:55)
[2018-04-24] MEDS: NITROFURANTOIN MONOHYD/M-CRYST 100 MG CAP PO SCH ×2 (08:55→20:14)
--- NOTE | 2018-04-24 11:03 | P.HP ---
Psychiatric H&P - . H&P Date: 04/24/18 History & Physical: Allergies Allergy/AdvReac Type Severity Reaction Status Date / Time codeine Allergy Unknown Verified 04/23/18 13:08 ibuprofen Allergy Unknown Verified 04/23/18 13:08 latex Allergy Itching Verified 04/23/18 13:08 chlorpromazine HCl AdvReac Extreme Verified 04/23/18 13:08 [From Thorazine] Sedation fluphenazine enanthate AdvReac Extreme Verified 04/23/18 13:08 [From Prolixin] Sedation fluphenazine HCl AdvReac Extreme Verified 04/23/18 13:08 [From Prolixin] Sedation Vital Signs Temp 98.6 F 04/24/18 06:32 Pulse 86 04/24/18 06:32 Resp 18 04/24/18 06:32 BP 126/66 04/24/18 06:32 Pulse Ox 98 04/23/18 14:36 Intake & Output 04/23/18 04/24/18 04/24/18 18:59 06:59 18:59 Weight 81.9 kg 81.655 kg Laboratory Last Values WBC 7.5 k/uL (3.8-10.6) 04/24/18 07:50 RBC 5.38 m/uL (3.80-5.40) 04/24/18 07:50 Hgb 11.8 gm/dL (11.4-16.0) 04/24/18 07:50 Hct 41.9 % (34.0-46.0) 04/24/18 07:50 MCV 77.9 fL (80.0-100.0) L 04/24/18 07:50 MCH 21.9 pg (25.0-35.0) L 04/24/18 07:50 MCHC 28.1 g/dL (31.0-37.0) L 04/24/18 07:50 RDW 19.3 % (11.5-15.5) H 04/24/18 07:50 Plt Count 509 k/uL (150-450) H 04/24/18 07:50 Neutrophils % 51 % 04/24/18 07:50 Lymphocytes % 31 % 04/24/18 07:50 Monocytes % 7 % 04/24/18 07:50 Eosinophils % 7 % 04/24/18 07:50 Basophils % 1 % 04/24/18 07:50 Neutrophils # 3.9 k/uL (1.3-7.7) 04/24/18 07:50 Lymphocytes # 2.3 k/uL (1.0-4.8) 04/24/18 07:50 Monocytes # 0.6 k/uL (0-1.0) 04/24/18 07:50 Eosinophils # 0.5 k/uL (0-0.7) 04/24/18 07:50 Basophils # 0.1 k/uL (0-0.2) 04/24/18 07:50 Hypochromasia Marked 04/24/18 07:50 Anisocytosis Slight 04/24/18 07:50 Microcytosis Slight 04/24/18 07:50 Sodium 139 mmol/L (137-145) 04/24/18 07:50 Potassium 4.7 mmol/L (3.5-5.1) 04/24/18 07:50 Chloride 105 mmol/L (98-107) 04/24/18 07:50 Carbon Dioxide 26 mmol/L (22-30) 04/24/18 07:50 Anion Gap 8 mmol/L 04/24/18 07:50 BUN 14 mg/dL (7-17) 04/24/18 07:50 Creatinine 0.99 mg/dL (0.52-1.04) 04/24/18 07:50 Est GFR (CKD-EPI)AfAm 78 (>60 ml/min/1.73 sqM) 04/24/18 07:50 Est GFR (CKD-EPI)NonAf 67 (>60 ml/min/1.73 sqM) 04/24/18 07:50 Glucose 94 mg/dL (74-99) 04/24/18 07:50 Calcium 10.1 mg/dL (8.4-10.2) 04/24/18 07:50 Total Bilirubin 0.6 mg/dL (0.2-1.3) 04/24/18 07:50 AST 18 U/L (14-36) 04/24/18 07:50 ALT 29 U/L (9-52) 04/24/18 07:50 Alkaline Phosphatase 110 U/L (38-126) 04/24/18 07:50 Total Protein 7.0 g/dL (6.3-8.2) 04/24/18 07:50 Albumin 4.1 g/dL (3.5-5.0) 04/24/18 07:50 Triglycerides 101 mg/dL (<150) 04/24/18 07:50 Cholesterol 206 mg/dL (<200) H 04/24/18 07:50 LDL Cholesterol, Calc 126 mg/dL (0-99) H 04/24/18 07:50 HDL Cholesterol 60 mg/dL (40-60) 04/24/18 07:50 TSH 1.070 mIU/L (0.465-4.680) 04/24/18 07:50 Assessment and Plan Assessment: This is a 47-year-old female who presents emergency department with past medical history significant for schizophrenia. Patient was expected by EPS because the act him and notified her that she would be coming in. Patient is nonverbal at this point patient is following simple commands. Patient had been petitioned by the acting prior to coming in. There is been no history of any trauma known recently. There is no mention of any recent illness. This is all the history we have at this time no but he came with the patient. Pt was brought in by [facility] r/t responding to internal stimulation. She has been compliant with her mediations and compliant with her therapy. They recently took her off her abilify po and started her on Invega maintaina on the same day. That was on the 13th of this month. Today they went to check on her and she was not answering their questions and laughing inappropriately and responding to internal stimulation. They called this blog writer to inform us they were going her in and petition her. Dr Lea certed her. This blog writer found the pt as stated, however she did answer questions by nodding her head yes or no. Pt was unable to get out of bed and get wanded. They had to do it while she was laying down. ACT team says she has been doing so good lately that they were going to take her off their list Lives with in [place] - Related Data Previous Rx's Medication Instructions Recorded ARIPiprazole [Abilify Maintena] 400 mg IM Q28D #1 06/25/16 ARIPiprazole [Abilify] 20 mg PO DAILY #30 tab 06/25/16 Calcium Carbonate/Vitamin D3 1 tab PO DAILY #30 06/25/16 [Calcium 600-Vit D3 800 Tab] Cyclobenzaprine [Flexeril] 10 mg PO HS #30 tab 06/25/16 Famotidine [Pepcid] 20 mg PO DAILY #30 06/25/16 Gabapentin [Neurontin] 600 mg PO TID #180 cap 06/25/16 Magnesium Oxide [Mag-Ox] 400 mg PO DAILY #30 06/25/16 fluvoxaMINE MALEATE [Luvox] 100 mg PO BID #60 06/25/16 Allergies Allergy/AdvReac Type Severity Reaction Status Date / Time codeine Allergy Unknown Verified 06/03/16 05:06 ibuprofen Allergy Unknown Verified 06/03/16 05:06 latex Allergy Itching Verified 06/03/16 05:06 chlorpromazine HCl AdvReac Extreme Verified 06/03/16 05:06 [From Thorazine] Sedation fluphenazine enanthate AdvReac Extreme Verified 06/03/16 05:06 [From Prolixin] Sedation fluphenazine HCl AdvReac Extreme Verified 06/03/16 05:06 [From Prolixin] Sedation Past Medical History Past Medical History: COPD, Deep Vein Thrombosis (DVT), GERD/Reflux, Hypertension History of Any Multi-Drug Resistant Organisms: None Reported Past Surgical History: Bariatric Surgery, Section, Cholecystectomy, Hernia Repair, Tubal Ligation Past Anesthesia/Blood Transfusion Reactions: Blood Transfusion Reaction Additional Past Anesthesia/Blood Transfusion Reaction / Comment(s): Patient states "yes" but unable to provide details. Past Psychological History: Anxiety, Bipolar, Depression, Schizophrenia Smoking Status: Former smoker Past Alcohol Use History: None Reported Additional Past Alcohol Use History / Comment(s): pt states that she smokes 5 cigarettes a day in the past but none now and denies any ETOH or MJ or any other substance abuse Past Drug Use History: None Reported - Past Family History Mother Family Medical History: No Reported History Additional Family Medical History / Comment(s): Patient thinks her mother of old age. Father Family Medical History: No Reported History Additional Family Medical History / Comment(s): Father at age 93 from possible old age. Brother(s) Family Medical History: No Reported History Additional Family Medical History / Comment(s): Patient had 4 brothers and 2 have , one from lung cancer and one from ALS. Sister(s) Family Medical History: No Reported History Additional Family Medical History / Comment(s): Patient has 2 sisters and she does not know their medical problems. Son(s) Family Medical History: No Reported History Additional Family Medical History / Comment(s): Patient has one son that she gave up for adoption. PAST PSYCHIATRIC HISTORY: According to record she was first hospitalized in the at approximately 1986. This is her seventh admission to this unit since 2010. She was last discharged in June 2014 with a diagnosis of this paranoid type schizophrenia. Her discharge medications included Haldol 5 mg daily. According to information from [facility] she has a diagnosis of schizoaffective disorder bipola. Her current medications are: Abilify maintaining a 400 mg IM every 4 weeks, clonazepam 2 mg at bedtime and Luvox 100 mg daily. The Invega Sustenna was discontinued on 10/15/2015. PAST MEDICAL HISTORY: According to record she has history of COPD, history of D VT, GERD and hypertension. Past surgeries include bariatric, , cholecystectomy, hernia repair and tubal ligation. ALLERGIES: She lists several medication as ALLERGIES including codeine, ibu profen, chlorpromazine and fluphenazine. SUBSTANCE USE HISTORY: She stated that she had a drink of alcohol and smokes marijuana "couple weeks ago". Her UDS was negative for drugs of abuse and her BAL was 0. Into the record she had a DUI in 1986. FAMILY PSYCHIATRIC/SUBSTANCE USE HISTORY: According to the record she has no family history of mental illness. LEGAL HISTORY: She denied a history of legal problems. SOCIAL HISTORY: She was born in [place] and raised by an intact family. She denied a childhood history of physical, sexual or emotional abuse. She has 5 brothers and 3 sisters. She graduated from high school. She was in the [employer] from [id number] and received a medical discharge. He is unemployed and receives security disability. Mental Status Examination - General Appearance: [disheveled, bizarre, appears older than stated age Speech/Language: [ slow, monotone,soft, Attitude/Behavior: [withdrawn, indifferent] Mood: [depressed, anxious, fearful, hopelessness] Affect: [full range, lively, flat, incongruent, labile, blunted constricted, other] Orientation: [not time, person, place situation] Thought Content: [wnl Risk Factors: [denies suicidal (ideations, plan), and/or Homicidal (ideations, plan), other] Perception: [wnl, hallucinations (auditory, visual, tactile), other] Thought Processes: [concrete, circumstantial, tangential, other] Concentration/Attention Span: [ impaired] [Per observation and interview with the patient] Recent Memory: [ impaired] [ 2 or 3 out of 3 in 3 minutes] Remote Memory: [wnl] [past events, as related history] Intelligence: [average] [based on history, based on vocabulary, syntax, grammar, and content] Judgement: [fair] [per patient's behavior/history of present illness] Insight: [fair] [understanding severity of illness/history of present illness] Plan: This is a 46-year-old female was admitted due to noncompliance on medication lethargy and not make compliant. She is on a involuntary basis and will be checked on 15 minute safety check his and his usual protocol for the unit. She be evaluated by medicine, psychiatry, social work, and occupational therapy. She be integrated into a psychotherapeutic environment whereby she will expected to participate in groups and activities and undergo biopsychosocial history to better understand her psychiatric presentation. (1) Schizophrenia Current Visit: Yes Status: Acute Code(s): F20.9 - SCHIZOPHRENIA, UNSPECIFIED SNOMED Code(s): 59530689 Time with Patient: Greater than 30
[2018-04-24 12:38] LABS: Appearance,Urine Clear (Clear); Bilirubin,Urine Negative (Negative); Blood,Urine Negative (Negative); Color,Urine Light Red; Glucose,Urine (UA) Negative (Negative); Ketones,Urine Trace (Negative); Leukocyte Esterase,Urine Negative (Negative); Nitrite,Urine Negative (Negative); PH, Urine 6.5 (5.0-8.0); Protein,Urine Trace (Negative); Specific Gravity,Urine 1.015 (1.001-1.035); Urobilinogen,Urine <2.0 mg/dL (<2.0)
[2018-04-24] MEDS: TRIAMTERENE-HCTZ 37.5-25MG 1 EACH TAB PO SCH (14:16)
--- NOTE | 2018-04-24 16:55 | P.MDCNMH ---
History of Present Illness H&P Date: 04/24/18 Chief Complaint: Unusual behavior Reason for consult - medical H&P for inpatient psych admission Mrs. Hogan is a 47-year-old female with a past medical history of COPD, DVT, GERD, hypertension, diabetes mellitus, schizophrenia, anxiety and bipolar disorder admitted to the psych unit for unusual behavior. She has multiple admissions to the psych unit for her schizophrenia. Patient had recent changes in her psych medications and since the of this month patient was responding to internal stimuli and she was not answering their questions and laughing inappropriately. Today the patient is in the psychiatric unit. Patient does not give me any history she only answers a few of my questions. She doesn't appear to be in any acute distress. She denies having any chest pain or difficulty in breathing. No cough or fevers chills or rigors. No abdominal pain nausea vomiting or diarrhea. No dysuria or hematuria. Patient denies having any weakness of her extremities. On reviewing her past medical history she has chronic medical conditions of hypertension, diabetes and DVT. Her home medications have been reviewed. Patient has been started on Macrobid recently on the of this month- on asking her why she is on Macrobid she was not able to give me an appropriate answer. But patient denies having any hematuria or dysuria currently. Review of Systems Complete review of systems could not be obtained - as the patient will not answer most of my questions Past Medical History Past Medical History: COPD, Deep Vein Thrombosis (DVT), GERD/Reflux, Hypertension History of Any Multi-Drug Resistant Organisms: None Reported Past Surgical History: Bariatric Surgery, Section, Cholecystectomy, Hernia Repair, Tubal Ligation Past Anesthesia/Blood Transfusion Reactions: Blood Transfusion Reaction Additional Past Anesthesia/Blood Transfusion Reaction / Comment(s): Patient s tates "yes" but unable to provide details. Smoking Status: Current every day smoker - Past Family History Mother Family Medical History: No Reported History Additional Family Medical History / Comment(s): Patient thinks her mother of old age. Father Family Medical History: No Reported History Additional Family Medical History / Comment(s): Father at age 93 from possible old age. Brother(s) Family Medical History: No Reported History Additional Family Medical History / Comment(s): Patient had 4 brothers and 2 have , one from lung cancer and one from ALS. Sister(s) Family Medical History: No Reported History Additional Family Medical History / Comment(s): Patient has 2 sisters and she does not know their medical problems. Son(s) Family Medical History: No Reported History Additional Family Medical History / Comment(s): Patient has one son that she gave up for adoption. Medications and Allergies Home Medications Medication Instructions Recorded Confirmed Type Calcium Carbonate/Vitamin D3 1 tab PO DAILY #30 06/25/16 04/23/18 Rx [Calcium 600-Vit D3 800 Tab] Cyclobenzaprine [Flexeril] 10 mg PO HS #30 tab 06/25/16 04/23/18 Rx Famotidine [Pepcid] 20 mg PO DAILY #30 06/25/16 04/23/18 Rx Magnesium Oxide [Mag-Ox] 400 mg PO DAILY #30 06/25/16 04/23/18 Rx fluvoxaMINE MALEATE [Luvox] 100 mg PO BID #60 06/25/16 04/23/18 Rx Acetaminophen Tab [Tylenol Tab] 650 mg PO Q8H PRN 04/23/18 04/23/18 History Albuterol Sulfate [Proair Hfa] 1 - 2 puff INHALATION RT-Q6H PRN 04/23/18 04/23/18 History Ferrous Gluconate 324 mg PO DAILY 04/23/18 04/23/18 History Ibuprofen [Motrin] 400 mg PO Q6HR PRN 04/23/18 04/23/18 History Loratadine [Claritin] 10 mg PO DAILY 04/23/18 04/23/18 History Multivitamins, Thera [Multivitamin 1 tab PO DAILY 04/23/18 04/23/18 History (formulary)] Nitrofurantoin Monohyd/M-Cryst 100 mg PO Q12HR 04/23/18 04/23/18 History [Macrobid] Paliperidone IM [Invega Sustenna] 156 mg IM Q7D 04/23/18 04/23/18 History Paliperidone IM [Invega Sustenna] 234 mg IM ONCE 04/23/18 04/23/18 History Triamterene/Hydrochlorothiazid 1 tab PO DAILY 04/23/18 04/23/18 History [Triamterene-Hctz 37.5-25 mg Tb] metFORMIN HCL [Glucophage] 500 mg PO BID 04/23/18 04/23/18 History Allergies Allergy/AdvReac Type Severity Reaction Status Date / Time codeine Allergy Unknown Verified 04/23/18 13:08 ibuprofen Allergy Unknown Verified 04/23/18 13:08 latex Allergy Itching Verified 04/23/18 13:08 chlorpromazine HCl AdvReac Extreme Verified 04/23/18 13:08 [From Thorazine] Sedation fluphenazine enanthate AdvReac Extreme Verified 04/23/18 13:08 [From Prolixin] Sedation fluphenazine HCl AdvReac Extreme Verified 04/23/18 13:08 [From Prolixin] Sedation Physical Exam Vitals: Vital Signs Temp Pulse Resp BP Pulse Ox 04/24/18 06:32 98.6 F 86 18 126/66 04/23/18 14:36 97.7 F 20 134/82 98 Intake and Output 04/23/18 04/24/18 04/24/18 22:59 06:59 14:59 Other: Weight 81.655 kg - Constitutional General appearance: average body habitus, cooperative - EENT Eyes: PERRLA - Neck Neck: normal ROM - Respiratory Bilateral breath sounds are positive. No wheezes or crackles. - Cardiovascular Rhythm: regular Heart sounds: normal: S1, S2 - Neurologic Neurologic: CNII-XII intact (No focal neurological deficits) - Musculoskeletal Musculoskeletal: gait normal Cranial Nerve Examination - Cranial Nerves Cranial Nerve II- Optic: Intact Cranial Nerve III- Oculomotor: Intact Cranial Nerve IV- Trochlear: Intact Cranial Nerve V- Trigeminal: Intact Cranial Nerve - Abducens: Intact Cranial Nerve VII- Facial: Intact Cranial Nerve VIII- Auditory: Intact Cranial Nerve IX- Glossopharyngeal: Intact Cranial Nerve X- Vagus: Intact Cranial Nerve XI- Accessory: Intact Cranial Nerve XII- Hypoglossal: Intact Results CBC & Chem 7: 04/24/18 07:50 04/24/18 07:50 Labs: Abnormal Lab Results - Last 24 Hours (Table) 04/24/18 04/24/18 04/24/18 Range/Units 07:50 07:50 12:15 MCV 77.9 L (80.0-100.0) fL MCH 21.9 L (25.0-35.0) pg MCHC 28.1 L (31.0-37.0) g/dL RDW 19.3 H (11.5-15.5) % Plt Count 509 H (150-450) k/uL Cholesterol 206 H (<200) mg/dL LDL Cholesterol, Calc 126 H (0-99) mg/dL Urine Protein Trace H (Negative) Urine Ketones Trace H (Negative) Assessment and Plan Assessment: ASSESSMENT Schizophrenia - acute Hypertension History of DVT Diabetes mellitus ? UTI PLAN: Management of her acute symptoms as per psychiatric recommendations. Patient has been restarted on triamterene hydrochlorothiazide, metformin for her hypertension and diabetes. Patient has been started on nitrofurantoin on 04/22, so it will be continued until she completes the antibiotic course. Medication reconciliation has been done. Will follow the patient on as-needed basis Thank you for the consult.
[2018-04-24] MEDS ORDERED: metFORMIN 500 MG TAB PO SCH (17:30)
[2018-04-24] MEDS: CYCLOBENZAPRINE 10 MG TAB PO SCH (20:14)
[2018-04-25] MEDS: metFORMIN 500 MG TAB PO SCH ×2 (07:52→17:00)
[2018-04-25] MEDS: MAGNESIUM OXIDE 400 MG TAB PO SCH (07:52)
[2018-04-25] MEDS: TRIAMTERENE-HCTZ 37.5-25MG 1 EACH TAB PO SCH (07:52)
[2018-04-25] MEDS: NITROFURANTOIN MONOHYD/M-CRYST 100 MG CAP PO SCH ×2 (07:53→21:06)
[2018-04-25] MEDS: CALCIUM CARB-VIT D 500MG-200UN 1 EACH TAB PO SCH (07:53)
[2018-04-25] MEDS: FAMOTIDINE 20 MG TAB PO SCH (07:53)
[2018-04-25] MEDS: LORATADINE 10 MG TAB PO SCH (07:53)
[2018-04-25] MEDS: FERROUS SULFATE 325 MG TAB PO SCH (07:53)
[2018-04-25 11:06] LABS: Urine Alcohol Negative (Negative); Urine Barbiturate Negative (Negative); Urine Cocaine Negative (Negative); Urine Methadone Negative (Negative); Urine Opiates Negative (Negative); Urine Phencyclidine Negative (Negative)
--- NOTE | 2018-04-25 11:59 | P.PN ---
Progress Note - Text Interval history: The patient is found in the hallway she follows me to an interview room. The patient was admitted for acute symptoms of psychosis. She was just seen by her outpatient psychiatrist Dr. Vasquez on Wednesday and her medication was changed from Abilify maintena to Invega Sustenna. She indicates she feels confused. She was observed earlier this morning standing very close to a wall that has a mural on it she was staring at it and touching different parts of the wall. She has required some redirection but is demonstrating no agitation. She does have a history of psychosis and has been on this mental health unit several times in the past. Mental status exam: The patient is alert she has a disheveled appearance she is dressed in hospital gowns. She demonstrates some odd affect such as smiling or laughter during the conversation. She demonstrates no agitation. She reports no auditory or visual hallucinations she is endorsing no specific delusions which seems unlikely. She does frequently moves while seated in her chair. She frequently holds her head in her hands. Eye contact is poor. She will provide brief answers to questions little spontaneous speech is present. She is reporting no suicidal or homicidal ideation. Insight and judgment are impaired. She demonstrates no involuntary repetitive movements. Plan: The patient has recently been started on Invega Sustenna and she is due for her second dose of 156 mg on 04/27/2018. We will continue to monitor her for safety and encourage participation in the milieu. We will provide reality orientation when possible. Vital signs reviewed. For safety reason she requires continued psychiatric hospitalization.
[2018-04-25 12:23] LABS: Hemoglobin A1C 6.2 % (4.0-6.0)
[2018-04-25] MEDS: CYCLOBENZAPRINE 10 MG TAB PO SCH (21:05)
[2018-04-26] MEDS: CALCIUM CARB-VIT D 500MG-200UN 1 EACH TAB PO SCH (07:45)
[2018-04-26] MEDS: MAGNESIUM OXIDE 400 MG TAB PO SCH (07:45)
[2018-04-26] MEDS: metFORMIN 500 MG TAB PO SCH ×2 (07:45→18:02)
[2018-04-26] MEDS: FAMOTIDINE 20 MG TAB PO SCH (07:45)
[2018-04-26] MEDS: NITROFURANTOIN MONOHYD/M-CRYST 100 MG CAP PO SCH ×2 (07:45→20:11)
[2018-04-26] MEDS: LORATADINE 10 MG TAB PO SCH (07:45)
[2018-04-26] MEDS: FERROUS SULFATE 325 MG TAB PO SCH (07:45)
[2018-04-26] MEDS: TRIAMTERENE-HCTZ 37.5-25MG 1 EACH TAB PO SCH (07:45)
--- NOTE | 2018-04-26 09:06 | P.PN ---
Progress Note - Text Interval history: The patient is found the hallway she follows me to an interview room. She has significant difficulty identifying her current mood. She starts stating random words that seem unrelated to each other. She indicates that she is eating. She was unable to quantify how she slept last night. She had no questions regarding her psychotropic medication. Mental status exam: The patient is a female appearing her stated age. She has a disheveled appearance she is dressed in hospital gowns. Eye contact is intermittent. She demonstrates a labile affect. She will smile and then transition to tearfulness fairly quickly. She has difficulty characterizing her mood. She seems to demonstrate thought blocking and endorses feelings of confusion. She reports no suicidal or homicidal thoughts. When asked about hallucinations she states "I don't know what those are" despite us describing hallucinations previously. She demonstrates no verbal or physical aggressiveness. She demonstrates no involuntary repetitive movements. Insight and judgment are impaired. Plan: The patient continues to demonstrate significant symptoms of psychosis. Tomorrow she will receive her second injection of Invega Sustenna. We will continue to monitor her for safety and encourage participation in the milieu. Vital signs reviewed. She requires continued psychiatric hospitalization due to dysfunction that the psychotic symptoms cause.
[2018-04-26] MEDS: ACETAMINOPHEN TAB 325 MG TAB PO PRN (15:17)
[2018-04-26] MEDS: CYCLOBENZAPRINE 10 MG TAB PO SCH (20:11)
[2018-04-27] MEDS ORDERED: PALIPERIDONE IM 156 MG/ML SYG IM ONE (08:00)
[2018-04-27] MEDS: FAMOTIDINE 20 MG TAB PO SCH (08:03)
[2018-04-27] MEDS: metFORMIN 500 MG TAB PO SCH ×2 (08:03→16:45)
[2018-04-27] MEDS: CALCIUM CARB-VIT D 500MG-200UN 1 EACH TAB PO SCH (08:03)
[2018-04-27] MEDS: TRIAMTERENE-HCTZ 37.5-25MG 1 EACH TAB PO SCH (08:04)
[2018-04-27] MEDS: LORATADINE 10 MG TAB PO SCH (08:04)
[2018-04-27] MEDS: MAGNESIUM OXIDE 400 MG TAB PO SCH (08:04)
[2018-04-27] MEDS: FERROUS SULFATE 325 MG TAB PO SCH (08:04)
--- NOTE | 2018-04-27 09:29 | P.PN ---
Progress Note - Text Interval history: The patient is found in the hallway she follows me to an interview room. She indicates her mood is better but struggles in describing why or how. She states that she slept well last night staff reported she slept 6 hours. She indicates appetite stable. She indicates she has been attending groups. She endorses no racing thoughts. When asked about hallucinations she states "I still don't know what those are". When asked if she feels confused still she provides a bizarre answer. Mental status exam: The patient is an overweight female appearing her stated age. Hygiene and grooming are improved. She is wearing dentures her own clothing and eyeglasses. She is easily directed. She reports feeling better for unexplained reasons. She provides bizarre responses to certain questions. She is reporting no thoughts of hurting herself or others. She is oriented to day of the week month and year. She is able to recall my name. She demonstrates no verbal or physical aggressiveness. She will have some spontaneous speech but it still is bizarre in content. No involuntary repetitive movements. Plan: The patient is receiving her Invega Sustenna 156 mg injection today. She is demonstrating slow clinical progress but still remains symptomatic and requires continued psychiatric hospitalization. Vital signs reviewed they're within normal limits. She is encouraged to continue complying with groups and we will continue monitoring her for safety. There needs to be further attenuation of her acute psychosis prior to her being discharged.
[2018-04-27] MEDS: CYCLOBENZAPRINE 10 MG TAB PO SCH (20:56)
[2018-04-28] MEDS: FERROUS SULFATE 325 MG TAB PO SCH (07:38)
[2018-04-28] MEDS: FAMOTIDINE 20 MG TAB PO SCH (07:38)
[2018-04-28] MEDS: metFORMIN 500 MG TAB PO SCH ×2 (07:38→17:58)
[2018-04-28] MEDS: LORATADINE 10 MG TAB PO SCH (07:38)
[2018-04-28] MEDS: MAGNESIUM OXIDE 400 MG TAB PO SCH (07:38)
[2018-04-28] MEDS: CALCIUM CARB-VIT D 500MG-200UN 1 EACH TAB PO SCH (07:38)
[2018-04-28] MEDS: TRIAMTERENE-HCTZ 37.5-25MG 1 EACH TAB PO SCH (07:38)
--- NOTE | 2018-04-28 08:31 | P.PN ---
Progress Note - Text Interval history: The patient is found in the hallway she follows me to an interview room. She indicates her mood is "stable" she states she slept better last night staff recorded she slept 7 hours. Appetite stable. She indicates she has been attempting to attend groups. No reported behavioral disturbances. She has no questions or concerns regarding her medication. Mental status exam: The patient is an overweight female appearing her stated age. She is dressed in her own clothing hygiene grooming improved. Eye contact appropriate. She has spontaneous speech. As her hospitalization progresses she does better in terms of appropriately participating in conversation. There is still some disorganization of thought detected. She will still makes some random statements that are unrelated to questions asked. In between questions she will have spontaneous statements that are random. She reports no thoughts of harming herself or others. She is endorsing no auditory or visual hallucinations. Thought process continues to be adversely impacted by symptoms of psychosis still. She demonstrates no verbal or physical aggressiveness. She demonstrates no involuntary repetitive movements. Affect is constricted. Plan: The patient will continue on the same medication plan. She received her second dose of Invega Sustenna yesterday. She is demonstrating slow clinical progress in terms of her psychosis during the hospitalization. She has not yet appropriate for discharge. If she continues to clinically improved at this current rate I expect she will be appropriate for discharge sometime early next week. We will monitor her for safety. She is encouraged to continue participating in the milieu. Vital signs reviewed they're within normal limits.
[2018-04-28] MEDS: ALBUTEROL INHALER 60 PUFF/8 GM INHALER INHALATION PRN (18:58)
[2018-04-28] MEDS: CYCLOBENZAPRINE 10 MG TAB PO SCH (20:54)
[2018-04-29] MEDS: FAMOTIDINE 20 MG TAB PO SCH (07:49)
[2018-04-29] MEDS: metFORMIN 500 MG TAB PO SCH ×2 (07:49→18:23)
[2018-04-29] MEDS: CALCIUM CARB-VIT D 500MG-200UN 1 EACH TAB PO SCH (07:49)
[2018-04-29] MEDS: MAGNESIUM OXIDE 400 MG TAB PO SCH (07:50)
[2018-04-29] MEDS: TRIAMTERENE-HCTZ 37.5-25MG 1 EACH TAB PO SCH (07:50)
[2018-04-29] MEDS: LORATADINE 10 MG TAB PO SCH (07:50)
[2018-04-29] MEDS: FERROUS SULFATE 325 MG TAB PO SCH (07:50)
--- NOTE | 2018-04-29 11:31 | P.PN ---
Progress Note - Text Progress Note Date: 04/29/18 Interval history: Claudia is able to walk down the hallway with me as I called her from nursing desk. She was able walk the hallway without any abnormal movements. She does not describe having any voices at the present time. She says she is enjoying groups and interacting positive with staff. Mental status examination: This is a 47-year-old female who is well groomed and appears her stated age. Speech is spontaneous. Attitude and behavior is cooperative. Mood is somewhat depressed and anxious. Affect is flat and blunted at times orientation is person place and time and situation. Thought content within normal. Risk factors she denies suicidal or homicidal ideations present time. Perceptions within normal denies any auditory or visual hallucinations at the current time her thought processes concrete. Concentration and attention within normal per observation and interview with the patient. Recent remote memory appear intact for past events is related history. Intelligence is average. Judgment is fair per patient's behavior and history of present illness. Insight is fair understanding severity of illness and history of her present illness Plan: This is a 46-year-old female was admitted due to noncompliance on medication lethargy and not make compliant. She is on a involuntary basis and will be checked on 15 minute safety check his and his usual protocol for the unit. She be evaluated by medicine, psychiatry, social work, and occupational therapy. She be integrated into a psychotherapeutic environment whereby she will expected to participate in groups and activities and undergo biopsychosocial history to better understand her psychiatric presentation.
[2018-04-29] MEDS: ALBUTEROL INHALER 60 PUFF/8 GM INHALER INHALATION PRN (19:52)
[2018-04-29] MEDS: CYCLOBENZAPRINE 10 MG TAB PO SCH (20:18)
[2018-04-30] MEDS: LORazepam 1 MG TAB PO PRN (00:46)
[2018-04-30] MEDS: TRIAMTERENE-HCTZ 37.5-25MG 1 EACH TAB PO SCH (08:52)
[2018-04-30] MEDS: FERROUS SULFATE 325 MG TAB PO SCH (08:52)
[2018-04-30] MEDS: FAMOTIDINE 20 MG TAB PO SCH (08:52)
[2018-04-30] MEDS: LORATADINE 10 MG TAB PO SCH (08:52)
[2018-04-30] MEDS: MAGNESIUM OXIDE 400 MG TAB PO SCH (08:52)
[2018-04-30] MEDS: CALCIUM CARB-VIT D 500MG-200UN 1 EACH TAB PO SCH (08:52)
[2018-04-30] MEDS: metFORMIN 500 MG TAB PO SCH ×2 (08:53→17:46)
[2018-04-30] MEDS: ALBUTEROL INHALER 60 PUFF/8 GM INHALER INHALATION PRN (11:21)
--- NOTE | 2018-04-30 16:23 | P.PN ---
Progress Note - Text IDENTIFICATION DATA: 47-year-old female with history of schizophrenia, petitioned due to laughing inappropriately and responding to internal stimuli, non compliant with treatment and being withdrawn. INTERVAL HISTORY: She says she is happy, excited about her boyfriend coming to visit her today. She says the medications are helping her to stay calm. She says she catatonic and withdrawn when she came in and now she is able to socialize. She says she enjoys going to her groups. Reports good sleep and appetite. Denies current symptoms of depression. MENTAL STATUS EXAMINATION: She appears her stated age in fair grooming and hygiene. She is pleasant and cooperative. The patient is alert and oriented 4 and in no apparent distress. Motor and speech behaviors are within normal limits. Mood is euthymic and affect appropriate. thought processes linear thought content is negative for suicidal or homicidal ideation. Denies auditory or visual hallucinations. insight and judgment are improving. ASSESSMENT AND PLAN: Scizophrenia Continue current treatment
[2018-04-30] MEDS: CYCLOBENZAPRINE 10 MG TAB PO SCH (20:11)
[2018-05-01] MEDS: ALBUTEROL INHALER 60 PUFF/8 GM INHALER INHALATION PRN ×2 (08:30→21:16)
[2018-05-01] MEDS: MAGNESIUM OXIDE 400 MG TAB PO SCH (08:35)
[2018-05-01] MEDS: metFORMIN 500 MG TAB PO SCH ×2 (08:35→17:18)
[2018-05-01] MEDS: TRIAMTERENE-HCTZ 37.5-25MG 1 EACH TAB PO SCH (08:35)
[2018-05-01] MEDS: LORATADINE 10 MG TAB PO SCH (08:35)
[2018-05-01] MEDS: FAMOTIDINE 20 MG TAB PO SCH (08:35)
[2018-05-01] MEDS: CALCIUM CARB-VIT D 500MG-200UN 1 EACH TAB PO SCH (08:35)
[2018-05-01] MEDS: FERROUS SULFATE 325 MG TAB PO SCH (08:35)
--- NOTE | 2018-05-01 18:07 | P.PN ---
Progress Note - Text IDENTIFICATION DATA: 47-year-old female with history of schizophrenia, petitioned due to laughing inappropriately and responding to internal stimuli, non compliant with treatment and being withdrawn. INTERVAL HISTORY: She reports doing well. No new complaints. She claims to have rested well yesterday and says no one can ruin her day today. She feels very hopeful active and happy. She is complaint with her medications and denies side effects . MENTAL STATUS EXAMINATION: 47 year old woman. She appears her stated age in fair grooming and hygiene. She is pleasant and cooperative. The patient is alert and oriented 4 and in no apparent distress. Motor and speech behaviors are within normal limits. Mood is happy and affect appropriate. thought processes linear thought content is negative for suicidal or homicidal ideation. Denies auditory or visual hallucinations. insight and judgment are improving. ASSESSMENT AND PLAN: Scizophrenia Continue current treatment
[2018-05-01] MEDS: CYCLOBENZAPRINE 10 MG TAB PO SCH (20:05)
[2018-05-02] MEDS: metFORMIN 500 MG TAB PO SCH ×2 (08:28→17:34)
[2018-05-02] MEDS: MAGNESIUM OXIDE 400 MG TAB PO SCH (08:32)
[2018-05-02] MEDS: TRIAMTERENE-HCTZ 37.5-25MG 1 EACH TAB PO SCH (08:32)
[2018-05-02] MEDS: FAMOTIDINE 20 MG TAB PO SCH (08:33)
[2018-05-02] MEDS: FERROUS SULFATE 325 MG TAB PO SCH (08:33)
[2018-05-02] MEDS: LORATADINE 10 MG TAB PO SCH (08:33)
[2018-05-02] MEDS: CALCIUM CARB-VIT D 500MG-200UN 1 EACH TAB PO SCH (08:34)
[2018-05-02] MEDS: ALBUTEROL INHALER 60 PUFF/8 GM INHALER INHALATION PRN ×3 (09:30→19:42)
--- NOTE | 2018-05-02 12:54 | P.PN ---
Progress Note - Text Progress Note Date: 05/02/18 interval history:patient still paranoid and delusional stating that somebody was in her bathroom and accusing staff of not listening to her. She remains irritable and agitated confused and poor communication. Mental status examination this is a 47-year-old female who has casual parents who looks older than his stated age. Speech is rapid sometimes expressive and loud in nature. Mood and behaviors cooperative bicarbonate at times. Mood depressed anxious angry hopelessness. Affect is lively and labile. Her mentation person place and time and situation. Thought content within normal. Risk factors she denies suicidal or homicidal ideation. Perception she denies auditory and visual). Does appear she does respond to internal stimuli. Thought process is quite concrete. Concentration and attention is impaired per observation and interview with the patient. Recent and remote memory within normal. Intelligence below average. Judgment and insight are fair in nature. Plan: This is a 46-year-old female was admitted due to noncompliance on medication lethargy and not make compliant. She is on a involuntary basis and will be checked on 15 minute safety check his and his usual protocol for the unit. She be evaluated by medicine, psychiatry, social work, and occupational therapy. She be integrated into a psychotherapeutic environment whereby she will expected to participate in groups and activities and undergo biopsychosocial history to better understand her psychiatric presentation.Will add Abilify 5 mg by mouth daily at bedtime for irritability and anger.
[2018-05-02] MEDS: CYCLOBENZAPRINE 10 MG TAB PO SCH (20:44)
[2018-05-02] MEDS ORDERED: ARIPiprazole 5 MG TAB PO SCH (21:00)
[2018-05-02] MEDS: LORazepam 1 MG TAB PO PRN (23:26)
[2018-05-03] MEDS: FAMOTIDINE 20 MG TAB PO SCH (09:24)
[2018-05-03] MEDS: metFORMIN 500 MG TAB PO SCH ×2 (09:24→17:37)
[2018-05-03] MEDS: LORATADINE 10 MG TAB PO SCH (09:24)
[2018-05-03] MEDS: FERROUS SULFATE 325 MG TAB PO SCH (09:24)
[2018-05-03] MEDS: TRIAMTERENE-HCTZ 37.5-25MG 1 EACH TAB PO SCH (09:25)
[2018-05-03] MEDS: MAGNESIUM OXIDE 400 MG TAB PO SCH (09:25)
[2018-05-03] MEDS: CALCIUM CARB-VIT D 500MG-200UN 1 EACH TAB PO SCH (09:25)
--- NOTE | 2018-05-03 13:06 | P.PN ---
Progress Note - Text Progress Note Date: 05/03/18 interval history: Yesterday the patient was hardly approachable and had some short-term memory lapse in understanding what happened during the day and today she did not understand how she got to the hospital. She thought it was all her fault and she does something. I explained to her that her [facility] DrManpreet have been changing Abilify to Invega which resulted in the patient relapsing and coming to the hospital. She denies homicidal suicidal ideation today. Her anxiety still remains high 7 out of 10 and depression symptoms 7 out of 10. Mental status examination: This is a 47-year-old well-groomed casual younger than stated age.. Speech and language spontaneous. Attitude and behaviors cooperative. Mood somewhat depressed and anxious. Affect lively labile. Orientation person place and time and situation. Thought content within normal. Perception within normal denies any auditory or visual hallucinations at the current time. Thought processes concrete at times. Concentration and attention span within normal per observation and interview with the patient. Recent and remote memory are within normal for past events is related history short-term Intelligence is below average. Judgment and insight are fair today Plan: She will remain on 15 minute checks that is usual for the psychiatric [facility] protocol. She has increased her Luvox to 50 mg by mouth daily at bedtime and increased Abilify to 7.5 mg by mouth daily at bedtime. We'll continue TO OBSERVE WHETHER SHE NEEDS CONTINUED ADJUSTMENT IN HER PSYCHIATRIC MEDICATIONS.
[2018-05-03] MEDS: ALBUTEROL INHALER 60 PUFF/8 GM INHALER INHALATION PRN (13:19)
[2018-05-03] MEDS: LORazepam 1 MG TAB PO PRN (20:39)
[2018-05-03] MEDS: CYCLOBENZAPRINE 10 MG TAB PO SCH (20:39)
[2018-05-04 07:02] VITALS: BP 110/62; PULSE 79; RESP 16; TEMP 98.2
[2018-05-04] MEDS: metFORMIN 500 MG TAB PO SCH (07:43)
[2018-05-04] MEDS: FERROUS SULFATE 325 MG TAB PO SCH (07:45)
[2018-05-04] MEDS: LORATADINE 10 MG TAB PO SCH (07:45)
[2018-05-04] MEDS: CALCIUM CARB-VIT D 500MG-200UN 1 EACH TAB PO SCH (07:45)
[2018-05-04] MEDS: FAMOTIDINE 20 MG TAB PO SCH (07:45)
[2018-05-04] MEDS: MAGNESIUM OXIDE 400 MG TAB PO SCH (07:46)
[2018-05-04] MEDS: TRIAMTERENE-HCTZ 37.5-25MG 1 EACH TAB PO SCH (07:46)
[2018-05-04] MEDS ORDERED: ARIPiprazole 5 MG TAB PO SCH (09:00)
--- NOTE | 2018-05-04 11:12 | P.DS ---
Providers Date of admission: 04/23/18 13:00 Expected date of discharge: 05/04/18 Attending physician: Sagar Nam Consults: 04/23/18 13:07 Consult Physician Routine Consulting Provider: Bernie Herrera Consult Reason/Comments: medical management Do you want consulting provider notified?: Yes, Notify in am Primary care physician: Stated None - Discharge Diagnosis(es) (1) Schizophrenia Allergies Allergy/AdvReac Type Severity Reaction Status Date / Time codeine Allergy Unknown Verified 04/23/18 13:08 ibuprofen Allergy Unknown Verified 04/23/18 13:08 latex Allergy Itching Verified 04/23/18 13:08 chlorpromazine HCl AdvReac Extreme Verified 04/23/18 13:08 [From Thorazine] Sedation fluphenazine enanthate AdvReac Extreme Verified 04/23/18 13:08 [From Prolixin] Sedation fluphenazine HCl AdvReac Extreme Verified 04/23/18 13:08 [From Prolixin] Sedation Vital Signs Temp 98.6 F 04/24/18 06:32 Pulse 86 04/24/18 06:32 Resp 18 04/24/18 06:32 BP 126/66 04/24/18 06:32 Pulse Ox 98 04/23/18 14:36 Intake & Output 04/23/18 04/24/18 04/24/18 18:59 06:59 18:59 Weight 81.9 kg 81.655 kg Laboratory Last Values WBC 7.5 k/uL (3.8-10.6) 04/24/18 07:50 RBC 5.38 m/uL (3.80-5.40) 04/24/18 07:50 Hgb 11.8 gm/dL (11.4-16.0) 04/24/18 07:50 Hct 41.9 % (34.0-46.0) 04/24/18 07:50 MCV 77.9 fL (80.0-100.0) L 04/24/18 07:50 MCH 21.9 pg (25.0-35.0) L 04/24/18 07:50 MCHC 28.1 g/dL (31.0-37.0) L 04/24/18 07:50 RDW 19.3 % (11.5-15.5) H 04/24/18 07:50 Plt Count 509 k/uL (150-450) H 04/24/18 07:50 Neutrophils % 51 % 04/24/18 07:50 Lymphocytes % 31 % 04/24/18 07:50 Monocytes % 7 % 04/24/18 07:50 Eosinophils % 7 % 04/24/18 07:50 Basophils % 1 % 04/24/18 07:50 Neutrophils # 3.9 k/uL (1.3-7.7) 04/24/18 07:50 Lymphocytes # 2.3 k/uL (1.0-4.8) 04/24/18 07:50 Monocytes # 0.6 k/uL (0-1.0) 04/24/18 07:50 Eosinophils # 0.5 k/uL (0-0.7) 04/24/18 07:50 Basophils # 0.1 k/uL (0-0.2) 04/24/18 07:50 Hypochromasia Marked 04/24/18 07:50 Anisocytosis Slight 04/24/18 07:50 Microcytosis Slight 04/24/18 07:50 Sodium 139 mmol/L (137-145) 04/24/18 07:50 Potassium 4.7 mmol/L (3.5-5.1) 04/24/18 07:50 Chloride 105 mmol/L (98-107) 04/24/18 07:50 Carbon Dioxide 26 mmol/L (22-30) 04/24/18 07:50 Anion Gap 8 mmol/L 04/24/18 07:50 BUN 14 mg/dL (7-17) 04/24/18 07:50 Creatinine 0.99 mg/dL (0.52-1.04) 04/24/18 07:50 Est GFR (CKD-EPI)AfAm 78 (>60 ml/min/1.73 sqM) 04/24/18 07:50 Est GFR (CKD-EPI)NonAf 67 (>60 ml/min/1.73 sqM) 04/24/18 07:50 Glucose 94 mg/dL (74-99) 04/24/18 07:50 Calcium 10.1 mg/dL (8.4-10.2) 04/24/18 07:50 Total Bilirubin 0.6 mg/dL (0.2-1.3) 04/24/18 07:50 AST 18 U/L (14-36) 04/24/18 07:50 ALT 29 U/L (9-52) 04/24/18 07:50 Alkaline Phosphatase 110 U/L (38-126) 04/24/18 07:50 Total Protein 7.0 g/dL (6.3-8.2) 04/24/18 07:50 Albumin 4.1 g/dL (3.5-5.0) 04/24/18 07:50 Triglycerides 101 mg/dL (<150) 04/24/18 07:50 Cholesterol 206 mg/dL (<200) H 04/24/18 07:50 LDL Cholesterol, Calc 126 mg/dL (0-99) H 04/24/18 07:50 HDL Cholesterol 60 mg/dL (40-60) 04/24/18 07:50 TSH 1.070 mIU/L (0.465-4.680) 04/24/18 07:50 Assessment and Plan Assessment: This is a 47-year-old female who presents emergency department with past medical history significant for schizophrenia. Patient was expected by EPS because the act him and notified her that she would be coming in. Patient is nonverbal at this point patient is following simple commands. Patient had been petitioned by the acting prior to coming in. There is been no history of any trauma known recently. There is no mention of any recent illness. This is all the history we have at this time no but he came with the patient. Pt was brought in by [facility] r/t responding to internal stimulation. She has been compliant with her mediations and compliant with her therapy. They recently took her off her abilify po and started her on Invega maintaina on the same day. That was on the of this month. Today they went to check on her and she was not answering their questions and laughing inappropriately and responding to internal stimulation. They called this information writer to inform us they were going her in and petition her. Dr Lea certed her. This information writer found the pt as stated, however she did answer questions by nodding her head yes or no. Pt was unable to get out of bed and get wanded. They had to do it while she was laying down. ACT team says she has been doing so good lately that they were going to take her off their list Lives with in [place] - Related Data Previous Rx's Medication Instructions Recorded ARIPiprazole [Abilify Maintena] 400 mg IM Q28D #1 06/25/16 ARIPiprazole [Abilify] 20 mg PO DAILY #30 tab 06/25/16 Calcium Carbonate/Vitamin D3 1 tab PO DAILY #30 06/25/16 [Calcium 600-Vit D3 800 Tab] Cyclobenzaprine [Flexeril] 10 mg PO HS #30 tab 06/25/16 Famotidine [Pepcid] 20 mg PO DAILY #30 06/25/16 Gabapentin [Neurontin] 600 mg PO TID #180 cap 06/25/16 Magnesium Oxide [Mag-Ox] 400 mg PO DAILY #30 06/25/16 fluvoxaMINE MALEATE [Luvox] 100 mg PO BID #60 06/25/16 Allergies Allergy/AdvReac Type Severity Reaction Status Date / Time codeine Allergy Unknown Verified 06/03/16 05:06 ibuprofen Allergy Unknown Verified 06/03/16 05:06 latex Allergy Itching Verified 06/03/16 05:06 chlorpromazine HCl AdvReac Extreme Verified 06/03/16 05:06 [From Thorazine] Sedation fluphenazine enanthate AdvReac Extreme Verified 06/03/16 05:06 [From Prolixin] Sedation fluphenazine HCl AdvReac Extreme Verified 06/03/16 05:06 [From Prolixin] Sedation Past Medical History Past Medical History: COPD, Deep Vein Thrombosis (DVT), GERD/Reflux, Hypertension History of Any Multi-Drug Resistant Organisms: None Reported Past Surgical History: Bariatric Surgery, Section, Cholecystectomy, Hernia Repair, Tubal Ligation Past Anesthesia/Blood Transfusion Reactions: Blood Transfusion Reaction Additional Past Anesthesia/Blood Transfusion Reaction / Comment(s): Patient states "yes" but unable to provide details. Past Psychological History: Anxiety, Bipolar, Depression, Schizophrenia Smoking Status: Former smoker Past Alcohol Use History: None Reported Additional Past Alcohol Use History / Comment(s): pt states that she smokes 5 cigarettes a day in the past but none now and denies any ETOH or MJ or any other substance abuse Past Drug Use History: None Reported - Past Family History Mother Family Medical History: No Reported History Additional Family Medical History / Comment(s): Patient thinks her mother of old age. Father Family Medical History: No Reported History Additional Family Medical History / Comment(s): Father at age 93 from possible old age. Brother(s) Family Medical History: No Reported History Additional Family Medical History / Comment(s): Patient had 4 brothers and 2 have , one from lung cancer and one from ALS. Sister(s) Family Medical History: No Reported History Additional Family Medical History / Comment(s): Patient has 2 sisters and she does not know their medical problems. Son(s) Family Medical History: No Reported History Additional Family Medical History / Comment(s): Patient has one son that she gave up for adoption. PAST PSYCHIATRIC HISTORY: According to record she was first hospitalized in the at approximately 1986. This is her seventh admission to this unit since 2010. She was last discharged in June 2014 with a diagnosis of this paranoid type schizophrenia. Her discharge medications included Haldol 5 mg daily. According to information from [facility] she has a diagnosis of schizoaffective disorder bipola. Her current medications are: Abilify maintaining a 400 mg IM every 4 weeks, clonazepam 2 mg at bedtime and Luvox 100 mg daily. The Invega Sustenna was discontinued on 10/15/2015. Current Visit: Yes Status: Acute Priority: Low Hospital Course: Plan: This is a 46-year-old female was admitted due to noncompliance on medication lethargy and not make compliant. She is on a involuntary basis and will be checked on 15 minute safety check his and his usual protocol for the unit. She be evaluated by medicine, psychiatry, social work, and occupational therapy. She be integrated into a psychotherapeutic environment whereby she will expected to participate in groups and activities and undergo biopsychosocial history to better understand her psychiatric presentation. The patient has recently been started on Invega Sustenna and she is due for her second dose of 156 mg on 04/27/2018. We will continue to monitor her for safety and encourage participation in the milieu. We will provide reality orientation when possible. Vital signs reviewed. For safety reason she requires continued psychiatric hospitalization. 04/27/2018:The patient will continue on the same medication plan. She received her second dose of Invega Sustenna yesterday. She is demonstrating slow clinical progress in terms of her psychosis during the hospitalization. She has not yet appropriate for discharge. If she continues to clinically improved at this current rate I expect she will be appropriate for discharge . Mental status examination time of discharge: The patient presents alert, pleasant, and cooperative. There calmly seated without any agitated behavior. [She] reports that [her] mood is good. Affect is congruent and euthymic. [She] deny having any suicidal or homicidal ideation intent or plan. [She] denies any auditory or visual hallucinations. There is no evidence of any delusional thought content. [Her] thought process is linear and goal-directed. [Her] speech is fluent and nonpressured. [Her] memory and concentration is grossly intact for the purposes of this session. Patient Condition at Discharge: Stable Plan - Discharge Summary Discharge Rx Participant: No New Discharge Prescriptions: New ARIPiprazole [Abilify] 7.5 mg PO DAILY 30 Days #45 tab Loratadine [Claritin] 10 mg PO DAILY tab Cyclobenzaprine [Flexeril] 10 mg PO HS tab metFORMIN HCL [Glucophage] 500 mg PO BID-W/MEALS tab Acetaminophen Tab [Tylenol] 650 mg PO Q4HR PRN tab PRN Reason: Pain/Discomfort Albuterol Inhaler [Ventolin Hfa Inhaler] 2 puff INHALATION RT-QID PRN puff PRN Reason: Shortness Of Breath Or Wheezing Continue Calcium Carbonate/Vitamin D3 [Calcium 600-Vit D3 800 Tab] 1 tab PO DAILY #30 Famotidine [Pepcid] 20 mg PO DAILY #30 metFORMIN HCL [Glucophage] 500 mg PO BID Multivitamins, Thera [Multivitamin (formulary)] 1 tab PO DAILY Ibuprofen [Motrin] 400 mg PO Q6HR PRN PRN Reason: Pain Loratadine [Claritin] 10 mg PO DAILY Ferrous Gluconate 324 mg PO DAILY Albuterol Sulfate [Proair Hfa] 1 - 2 puff INHALATION RT-Q6H PRN PRN Reason: Shortness Of Breath Acetaminophen Tab [Tylenol] 650 mg PO Q8H PRN PRN Reason: Pain Triamterene/Hydrochlorothiazid [Triamterene-Hctz 37.5-25 mg Tb] 1 tab PO DAILY Paliperidone IM [Invega Sustenna] 156 mg IM Q7D 7 Days #1 syringe Paliperidone IM [Invega Sustenna] 234 mg IM ONCE 28 Days syringe fluvoxaMINE MALEATE [Luvox] 100 mg PO BID #60 tablet Nitrofurantoin Monohyd/M-Cryst [Macrobid] 100 mg PO Q12HR 10 Days #20 cap Discontinued Cyclobenzaprine [Flexeril] 10 mg PO HS #30 tab Magnesium Oxide [Mag-Ox] 400 mg PO DAILY #30 Discharge Medication List Calcium Carbonate/Vitamin D3 [Calcium 600-Vit D3 800 Tab] 1 tab PO DAILY #30 06/25/16 [Rx] Famotidine [Pepcid] 20 mg PO DAILY #30 06/25/16 [Rx] Acetaminophen Tab [Tylenol] 650 mg PO Q8H PRN 04/23/18 [History] Albuterol Sulfate [Proair Hfa] 1 - 2 puff INHALATION RT-Q6H PRN 04/23/18 [History] Ferrous Gluconate 324 mg PO DAILY 04/23/18 [History] Ibuprofen [Motrin] 400 mg PO Q6HR PRN 04/23/18 [History] Loratadine [Claritin] 10 mg PO DAILY 04/23/18 [History] Multivitamins, Thera [Multivitamin (formulary)] 1 tab PO DAILY 04/23/18 [History] Triamterene/Hydrochlorothiazid [Triamterene-Hctz 37.5-25 mg Tb] 1 tab PO DAILY 04/23/18 [History] metFORMIN HCL [Glucophage] 500 mg PO BID 04/23/18 [History] ARIPiprazole [Abilify] 7.5 mg PO DAILY 30 Days #45 tab 05/04/18 [Rx] Acetaminophen Tab [Tylenol] 650 mg PO Q4HR PRN tab 05/04/18 [Rx] Albuterol Inhaler [Ventolin Hfa Inhaler] 2 puff INHALATION RT-QID PRN puff 05/04/18 [Rx] Cyclobenzaprine [Flexeril] 10 mg PO HS tab 05/04/18 [Rx] Loratadine [Claritin] 10 mg PO DAILY tab 05/04/18 [Rx] Nitrofurantoin Monohyd/M-Cryst [Macrobid] 100 mg PO Q12HR 10 Days #20 cap 05/04/18 [Rx] Paliperidone IM [Invega Sustenna] 156 mg IM Q7D 7 Days #1 syringe 05/04/18 [Rx] Paliperidone IM [Invega Sustenna] 234 mg IM ONCE 28 Days syringe 05/04/18 [Rx] fluvoxaMINE MALEATE [Luvox] 100 mg PO BID #60 tablet 05/04/18 [Rx] metFORMIN HCL [Glucophage] 500 mg PO BID-W/MEALS tab 05/04/18 [Rx] Follow up Appointment(s)/Referral(s): [facility] [Outside] - 05/09/18 10:30 am (05-09-18 @ 10:[address] Vasquez. ) None,Stated [Primary Care Provider] - 1-2 days Discharge Disposition: HOME SELF-CARE
== END 2018-05-04 14:35 | disposition home or self-care (01) | DRG 885 ==
LOC: EC 12:06 → 3MHU 13:00
PROVIDERS: ADMIT Psychiatry & Neurology Psychiatry; ATTEND Psychiatry & Neurology Psychiatry
DX: F25.0 Schizoaffective disorder, bipolar type (principal); I10 Essential (primary) hypertension; J44.9 Chronic obstructive pulmonary disease, unspecified; K21.9 Gastro-esophageal reflux disease without esophagitis; Z80.1 Family history of malignant neoplasm of trachea, bronchus and lung; Z86.718 Personal history of other venous thrombosis and embolism; Z87.891 Personal history of nicotine dependence; Z90.49 Acquired absence of other specified parts of digestive tract; Z91.14 Patient's other noncompliance with medication regimen; Z88.5 Allergy status to narcotic agent; Z88.8 Allergy status to other drugs, medicaments and biological substances; Z88.6 Allergy status to analgesic agent; Z91.040 Latex allergy status; F41.9 Anxiety disorder, unspecified; Z82.0 Family history of epilepsy and other diseases of the nervous system; E11.9 Type 2 diabetes mellitus without complications; Z79.84 Long term (current) use of oral hypoglycemic drugs; Z79.899 Other long term (current) drug therapy; Z98.84 Bariatric surgery status
CPT/HCPCS: 80053; 80061; 80306; 81003; 81025; 82075; 83036; 84443; 85025; 94640; 99285

== ENCOUNTER 2018-05-12 20:52 | Inpatient (IN) | payer MEDICARE, MEDICAID ==
--- NOTE | 2018-05-12 21:28 | ED ---
Psych HPI - General Source: patient, RN notes reviewed, old records reviewed, Caregiver Mode of arrival: ambulatory - History of Present Illness MD Complaint: feels depressed, altered mental status -: unknown Associated Psychiatric Symptoms: homicidal ideation, racing thoughts History of same: Yes Quality: intermittent, getting worse Improves With: none Worsens With: none Context: not taking psychiatric medications Associated Symptoms: denies other symptoms Treatments Prior to Arrival: placed on mental health hold If Self Harm: has plan <Yan Ashley - Last Filed: 05/12/18 23:49> <Yan Lea - Last Filed: 05/13/18 12:06> - General Chief Complaint: Psychiatric Symptoms Stated Complaint: Court Order/ Agressive toward others Time Seen by Provider: 05/12/18 21:27 - History of Present Illness Initial Comments: This is a 47-year-old female the ER for evaluation. She was essay for evaluation regards to mental health evaluation, patient's brought in by PD for pickup order. (Yan Ashley) - Related Data Home Medications Medication Instructions Recorded Confirmed Acetaminophen Tab [Tylenol] 650 mg PO Q8H PRN 04/23/18 05/12/18 Albuterol Sulfate [Proair Hfa] 1 - 2 puff INHALATION RT-Q4H PRN 04/23/18 05/12/18 Ibuprofen [Motrin] 400 mg PO TID PRN 04/23/18 05/12/18 Loratadine [Claritin] 10 mg PO DAILY 04/23/18 05/12/18 Multivitamins, Thera [Multivitamin 1 tab PO DAILY 04/23/18 05/12/18 (formulary)] metFORMIN HCL [Glucophage] 500 mg PO BID 04/23/18 05/12/18 Apixaban [Eliquis] 5 mg PO BID 05/12/18 05/12/18 Cyanocobalamin (Vitamin B-12) 1,000 mcg PO DAILY 05/12/18 05/12/18 [Vitamin B-12] Cyclobenzaprine [Flexeril] 10 mg PO HS PRN 05/12/18 05/12/18 Ferrous Sulfate [Feosol] 325 mg PO DAILY 05/12/18 05/12/18 [place] Carbonate 600 mg PO HS 05/12/18 05/12/18 Magnesium Oxide [Mag-Ox] 400 mg PO DAILY 05/12/18 05/12/18 Paliperidone IM [Invega Sustenna] 234 mg IM Q28D 05/12/18 05/12/18 Triamterene-Hctz 37.5-25Mg 1 cap PO DAILY 05/12/18 05/12/18 [Dyazide 37.5-25 Capsule] clonazePAM [KlonoPIN] 2 mg PO HS 05/12/18 05/12/18 Previous Rx's Medication Instructions Recorded Calcium Carbonate/Vitamin D3 1 tab PO DAILY #30 06/25/16 [Calcium 600-Vit D3 800 Tab] Famotidine [Pepcid] 20 mg PO DAILY #30 06/25/16 Allergies Allergy/AdvReac Type Severity Reaction Status Date / Time codeine Allergy Unknown Verified 05/12/18 21:44 ibuprofen Allergy Unknown Verified 05/12/18 21:44 latex Allergy Itching Verified 05/12/18 21:44 chlorpromazine HCl AdvReac Extreme Verified 05/12/18 21:44 [From Thorazine] Sedation fluphenazine enanthate AdvReac Extreme Verified 05/12/18 21:44 [From Prolixin] Sedation fluphenazine HCl AdvReac Extreme Verified 05/12/18 21:44 [From Prolixin] Sedation Review of Systems ROS Other: All systems not noted in ROS Statement are negative. <Yan Ashley - Last Filed: 05/12/18 23:49> ROS Other: All systems not noted in ROS Statement are negative. <Yan Lea - Last Filed: 05/13/18 12:06> ROS Statement: Those systems with pertinent positive or pertinent negative responses have been documented in the HPI. Past Medical History Past Medical History: COPD, Deep Vein Thrombosis (DVT), GERD/Reflux, Hypertension History of Any Multi-Drug Resistant Organisms: None Reported Past Surgical History: Bariatric Surgery, Section, Cholecystectomy, Hernia Repair, Tubal Ligation Past Anesthesia/Blood Transfusion Reactions: Blood Transfusion Reaction Additional Past Anesthesia/Blood Transfusion Reaction / Comment(s): Patient states "yes" but unable to provide details. Past Psychological History: Anxiety, Bipolar, Depression, Schizophrenia Smoking Status: Current every day smoker - Past Family History Mother Family Medical History: No Reported History Additional Family Medical History / Comment(s): Patient thinks her mother of old age. Father Family Medical History: No Reported History Additional Family Medical History / Comment(s): Father at age 93 from possible old age. Brother(s) Family Medical History: No Reported History Additional Family Medical History / Comment(s): Patient had 4 brothers and 2 have , one from lung cancer and one from ALS. Sister(s) Family Medical History: No Reported History Additional Family Medical History / Comment(s): Patient has 2 sisters and she does not know their medical problems. Son(s) Family Medical History: No Reported History Additional Family Medical History / Comment(s): Patient has one son that she gave up for adoption. <Yan Ashley Last Filed: 05/12/18 23:49> General Exam Limitations: no limitations General appearance: alert, in no apparent distress Head exam: Present: atraumatic, normocephalic, normal inspection Eye exam: Present: normal appearance, PERRL, EOMI. Absent: scleral icterus, conjunctival injection, periorbital swelling ENT exam: Present: normal exam, mucous membranes moist Neck exam: Present: normal inspection. Absent: tenderness, meningismus, lymphadenopathy Respiratory exam: Present: normal lung sounds bilaterally. Absent: respiratory distress, wheezes, rales, rhonchi, stridor Cardiovascular Exam: Present: regular rate, normal rhythm, normal heart sounds. Absent: systolic murmur, diastolic murmur, rubs, gallop, clicks GI/Abdominal exam: Present: soft, normal bowel sounds. Absent: distended, tenderness, guarding, rebound, rigid Extremities exam: Present: normal inspection, full ROM, normal capillary refill. Absent: tenderness, pedal edema, joint swelling, calf tenderness Back exam: Present: normal inspection Neurological exam: Present: alert, oriented X3, CN II-XII intact Psychiatric exam: Present: normal affect, normal mood Skin exam: Present: warm, dry, intact, normal color. Absent: rash <Yan Ashley - Last Filed: 05/12/18 23:49> Course <Yan Ashley Last Filed: 05/12/18 23:49> Vital Signs 05/12/18 05/13/18 21:05 05:55 Temperature 98.1 F Pulse Rate 75 72 Respiratory 18 19 Rate Blood Pressure 114/68 119/74 O2 Sat by Pulse 97 96 Oximetry - Reevaluation(s) Reevaluation #1: 05/12/18 23:51 Medically clear for psychiatric evaluation (Yan Ashley) Medical Decision Making - Lab Data Lab Results 05/13/18 Range/Units 08:20 Urine Opiates Screen Not Detected (NotDetected) Ur Oxycodone Screen Not Detected (NotDetected) Urine Methadone Screen Not Detected (NotDetected) Ur Propoxyphene Screen Not Detected (NotDetected) Ur Barbiturates Screen Not Detected (NotDetected) U Tricyclic Antidepress Detected H (NotDetected) Ur Phencyclidine Scrn Not Detected (NotDetected) Ur Amphetamines Screen Not Detected (NotDetected) U Methamphetamines Scrn Not Detected (NotDetected) U Benzodiazepines Scrn Not Detected (NotDetected) Urine Cocaine Screen Not Detected (NotDetected) U Marijuana (THC) Screen Not Detected (NotDetected) Disposition <Yan Ashley - Last Filed: 05/12/18 23:49> Time of Disposition: 12:06 <Yan Lea - Last Filed: 05/13/18 12:06> Clinical Impression: Depression Disposition: ADMITTED IP TO THIS HOSP Referrals: [facility] [Primary Care Provider] - 1-2 days
[2018-05-13 08:54] LABS: Phencyclidine Screen,Urine Not Detected (NotDetected); Urn Cannabinoid Scrn Not Detected (NotDetected)
[2018-05-13 08:55] LABS: Amphetamine Screen,Urine Not Detected (NotDetected); Barbiturate Screen,Urine Not Detected (NotDetected); Benzodiazepines Screen,Urine Not Detected (NotDetected); Cocaine Screen,Urine Not Detected (NotDetected); Methadone Screen, Urine Not Detected (NotDetected); Opiate Screen,Urine Not Detected (NotDetected); Oxycodone Screen, Urine Not Detected (NotDetected); Tricyclic Antidepressant,Urine Detected (NotDetected)
[2018-05-13] MEDS ORDERED: MAGNESIUM HYDROXIDE 2,400 MG/10 ML CUP PO PRN (14:15)
[2018-05-13] MEDS ORDERED: ZIPRASIDONE 20 MG VIAL IM PRN (14:15)
[2018-05-13] MEDS ORDERED: MAG HYDROX/AL HYDROX/SIMETH 30 ML CUP PO PRN (14:15)
[2018-05-13] MEDS ORDERED: IBUPROFEN 400 MG TAB PO PRN (14:28)
[2018-05-13] MEDS ORDERED: CYCLOBENZAPRINE 10 MG TAB PO PRN (14:28)
[2018-05-13] MEDS ORDERED: clonazePAM 1 MG TAB PO PRN (14:41)
[2018-05-13] MEDS: MULTIVITAMINS, THERA 1 EACH TAB PO SCH (15:14)
[2018-05-13] MEDS: FAMOTIDINE 20 MG TAB PO SCH (15:14)
[2018-05-13] MEDS: CYANOCOBALAMIN 500 MCG TAB PO SCH (15:14)
[2018-05-13] MEDS: LORATADINE 10 MG TAB PO SCH (15:14)
[2018-05-13] MEDS: NICOTINE 7MG/24HR PATCH TRANSDERM SCH (15:14)
[2018-05-13] MEDS: FERROUS SULFATE 325 MG TAB PO SCH (15:15)
[2018-05-13] MEDS: CALCIUM CARB-VIT D 500MG-200UN 1 EACH TAB PO SCH (15:15)
[2018-05-13] MEDS: TRIAMTERENE-HCTZ 37.5-25MG 1 EACH CAP PO SCH (15:16)
[2018-05-13 15:29] LABS: Anisocytosis Slight; Basophils # (A) 0.1 k/uL (0-0.2); Basophils % (A) 1 %; Eosinophils # (A) 0.8 k/uL (0-0.7); Eosinophils % (A) 7 %; HCT 38.4 % (34.0-46.0); HGB 11.3 gm/dL (11.4-16.0); Hypochromasia Marked; Lymphocytes # (A) 1.9 k/uL (1.0-4.8); Lymphocytes % (A) 18 %; MCH 22.1 pg (25.0-35.0); MCHC 29.3 g/dL (31.0-37.0); MCV 75.6 fL (80.0-100.0); Mean Platelet Volume 8.9; Microcytosis Moderate; Monocytes # (A) 0.7 k/uL (0-1.0); Monocytes % (A) 7 %; Neutrophils # (A) 7.2 k/uL (1.3-7.7); Neutrophils % (A) 67 %; Platelet Count 448 k/uL (150-450); RBC 5.08 m/uL (3.80-5.40); RDW 18.8 % (11.5-15.5); WBC 10.8 k/uL (3.8-10.6)
[2018-05-13 15:38] LABS: Albumin 3.7 g/dL (3.5-5.0); Calcium 10.2 mg/dL (8.4-10.2); Lithium 0.8 mmol/L; Potassium 4.7 mmol/L (3.5-5.1); Total Bilirubin 0.2 mg/dL (0.2-1.3); Total Protein 6.6 g/dL (6.3-8.2)
[2018-05-13] MEDS: metFORMIN 500 MG TAB PO SCH (16:59)
[2018-05-13] MEDS: LITHIUM CARBONATE 300 MG CAP PO SCH (20:24)
[2018-05-13] MEDS: clonazePAM 1 MG TAB PO SCH (20:24)
[2018-05-13 21:56] LABS: Appearance,Urine Clear (Clear); Bilirubin,Urine Negative (Negative); Blood,Urine Negative (Negative); Color,Urine Yellow; Glucose,Urine (UA) Negative (Negative); Ketones,Urine Negative (Negative); Leukocyte Esterase,Urine Negative (Negative); Nitrite,Urine Negative (Negative); PH, Urine 6.5 (5.0-8.0); Protein,Urine Negative (Negative); Specific Gravity,Urine 1.011 (1.001-1.035); Urobilinogen,Urine <2.0 mg/dL (<2.0)
[2018-05-14] MEDS: metFORMIN 500 MG TAB PO SCH ×2 (07:56→17:40)
[2018-05-14] MEDS: TRIAMTERENE-HCTZ 37.5-25MG 1 EACH CAP PO SCH (07:57)
[2018-05-14] MEDS: FERROUS SULFATE 325 MG TAB PO SCH (07:57)
[2018-05-14] MEDS: CALCIUM CARB-VIT D 500MG-200UN 1 EACH TAB PO SCH (07:57)
[2018-05-14] MEDS: FAMOTIDINE 20 MG TAB PO SCH (07:57)
[2018-05-14] MEDS: NICOTINE 7MG/24HR PATCH TRANSDERM SCH (07:57)
[2018-05-14] MEDS: CYANOCOBALAMIN 500 MCG TAB PO SCH (07:57)
[2018-05-14] MEDS: LORATADINE 10 MG TAB PO SCH (07:57)
--- NOTE | 2018-05-14 08:16 | P.CONS ---
History of Present Illness - Reason for Consult Consult date: 05/14/18 - History of Present Illness The patient is a 47 yo F with a PMH of HTN, COPD, hx of DVT, and DM presented to the ED under police custody for strange behavior. The patient is a poor historian and reports that she was trying to divide up her cigarettes when the police took her into custody and brought her to the ED. She reports a history of oral herpes infection with a recent flare and a ricky-oral rash.She otherwise denied any complaints. She denied cough, fever, chills, chest pain, or SOB. Denied nausea, vomiting, or diarrhea. Denied headaches, or dysuria. The patient reports a remote history of LLE DVT though unable to provide detail on inciting factors, date of diagnosis, or duration of therapy. Review of Systems Pertinent positives and negatives as discussed in HPI, a complete review of systems was performed and all other systems are negative. Past Medical History Past Medical History: COPD, Diabetes Mellitus, Deep Vein Thrombosis (DVT), GERD/Reflux, Hypertension History of Any Multi-Drug Resistant Organisms: None Reported Past Surgical History: Bariatric Surgery, Section, Cholecystectomy, Hernia Repair, Tubal Ligation Past Anesthesia/Blood Transfusion Reactions: Blood Transfusion Reaction Additional Past Anesthesia/Blood Transfusion Reaction / Comm: Patient states "yes" but unable to provide details. Past Psychological History: Anxiety, Bipolar, Depression, Schizophrenia Smoking Status: Current every day smoker Past Alcohol Use History: None Reported Additional Past Alcohol Use History / Comment(s): Pt states she currently smokes two cigarettes a day Past Drug Use History: None Reported - Past Family History Mother Family Medical History: No Reported History Additional Family Medical History / Comment(s): Patient thinks her mother of old age. Father Family Medical History: No Reported History Additional Family Medical History / Comment(s): Father at age 93 from possible old age. Brother(s) Family Medical History: No Reported History Additional Family Medical History / Comment(s): Patient had 4 brothers and 2 have , one from lung cancer and one from ALS. Sister(s) Family Medical History: No Reported History Additional Family Medical History / Comment(s): Patient has 2 sisters and she does not know their medical problems. Son(s) Family Medical History: No Reported History Additional Family Medical History / Comment(s): Patient has one son that she gave up for adoption. Medications and Allergies Home Medications Medication Instructions Recorded Confirmed Type Calcium Carbonate/Vitamin D3 1 tab PO DAILY #30 06/25/16 05/12/18 Rx [Calcium 600-Vit D3 800 Tab] Famotidine [Pepcid] 20 mg PO DAILY #30 06/25/16 05/12/18 Rx Acetaminophen Tab [Tylenol] 650 mg PO Q8H PRN 04/23/18 05/12/18 History Albuterol Sulfate [Proair Hfa] 1 - 2 puff INHALATION RT-Q4H PRN 04/23/18 05/12/18 History Ibuprofen [Motrin] 400 mg PO TID PRN 04/23/18 05/12/18 History Loratadine [Claritin] 10 mg PO DAILY 04/23/18 05/12/18 History Multivitamins, Thera [Multivitamin 1 tab PO DAILY 04/23/18 05/12/18 History (formulary)] metFORMIN HCL [Glucophage] 500 mg PO BID 04/23/18 05/12/18 History Apixaban [Eliquis] 5 mg PO BID 05/12/18 05/12/18 History Cyanocobalamin (Vitamin B-12) 1,000 mcg PO DAILY 05/12/18 05/12/18 History [Vitamin B-12] Cyclobenzaprine [Flexeril] 10 mg PO HS PRN 05/12/18 05/12/18 History Ferrous Sulfate [Feosol] 325 mg PO DAILY 05/12/18 05/12/18 History [place] Carbonate 600 mg PO HS 05/12/18 05/12/18 History Magnesium Oxide [Mag-Ox] 400 mg PO DAILY 05/12/18 05/12/18 History Paliperidone IM [Invega Sustenna] 234 mg IM Q28D 05/12/18 05/12/18 History Triamterene-Hctz 37.5-25Mg 1 cap PO DAILY 05/12/18 05/12/18 History [Dyazide 37.5-25 Capsule] clonazePAM [KlonoPIN] 2 mg PO HS 05/12/18 05/12/18 History Allergies Allergy/AdvReac Type Severity Reaction Status Date / Time codeine Allergy Unknown Verified 05/12/18 21:44 ibuprofen Allergy Unknown Verified 04/04/19 21:44 latex Allergy Itching Verified 05/12/18 21:44 chlorpromazine HCl AdvReac Extreme Verified 05/12/18 21:44 [From Thorazine] Sedation fluphenazine enanthate AdvReac Extreme Verified 05/12/18 21:44 [From Prolixin] Sedation fluphenazine HCl AdvReac Extreme Verified 05/12/18 21:44 [From Prolixin] Sedation Physical Exam Vitals: Vital Signs Temp Pulse Pulse Resp BP BP Pulse Ox 05/14/18 06:26 98.4 F 79 16 116/66 05/13/18 20:26 100 118/68 05/13/18 14:49 97.1 F L 74 16 110/66 96 General: non toxic, no distress, appears at stated age, overweight Derm: perioral crusting lesions w/ mildly erythematous base Head: atraumatic, normocephalic, symmetric Eyes: EOMI, no lid lag, anicteric sclera, pupils equal round reactive to light ENT: Nose and ears atraumatic, no thrush, no pharyngeal erythema Neck: No thyromegaly, no cervical lymphadenopathy, trachea midline, supple Mouth: no lip lesion, mucus membranes moist Cardiovascular: S1S2 reg, no murmur, positive posterior tibial pulse bilateral, no edema, capillary refill less than 2 seconds Lungs: CTA bilateral, no rhonchi, no rales , no accessory muscle use Abdominal: soft, nontender to palpation, no guarding, no appreciable organomegaly, normal bowel sounds Ext: no gross muscle atrophy, muscle strength 5 out of 5 in all 4 extremities grossly, no contractures, Neuro: CN II-XI grossly intact, light touch intact all 4 extremities, finger to nose within normal limits, Psych: Alert, oriented, some tangientiality and disorganized thought process Results CBC & Chem 7: 05/13/18 14:53 05/13/18 14:53 Labs: Abnormal Lab Results - Last 24 Hours (Table) 05/13/18 05/13/18 05/13/18 Range/Units 08:20 14:53 14:53 WBC 10.8 H (3.8-10.6) k/uL Hgb 11.3 L (11.4-16.0) gm/dL MCV 75.6 L (80.0-100.0) fL MCH 22.1 L (25.0-35.0) pg MCHC 29.3 L (31.0-37.0) g/dL RDW 18.8 H (11.5-15.5) % Eosinophils # 0.8 H (0-0.7) k/uL Creatinine 1.17 H (0.52-1.04) mg/dL U Tricyclic Antidepress Detected H (NotDetected) Assessment and Plan Plan: History of DVT -Reviewed documentation from EMR back to 2013 -- history of DVT mentioned with patient not receiving anticoagulation. Eliquis listed as a home medication though patient doesn't recall if she takes it. Unable to confirm w/ pharmacy at this time. -Will hold off on Anticoagulation for now -Re-address when patient able to provide more information DM -Blood glucose monitoring -C/w Metformin HTN -C/w home meds: Dyazide Leukocytosis -No signs of infection -Will monitor for now Oral herpes -Symptomatic management Psychosis -As per psychiatry Thank you for allowing us to participate in the care of this patient. We will follow peripherally. Do not hesitate to contact us with questions. Someone can be reached from the [facility] hospitalist group at all hours of the day at [phone].
[2018-05-14] MEDS: MULTIVITAMINS, THERA 1 EACH TAB PO SCH (12:06)
--- NOTE | 2018-05-14 12:53 | HP ---
HISTORY AND PHYSICAL DATE OF SERVICE DICTATION: 05/14/2018 IDENTIFYING DATA: This patient is a 47-year-old female who was readmitted to the mental health unit through the emergency room. The patient was just recently discharged from our mental health unit. She has a known diagnosis of schizoaffective disorder. She was stabilized and discharged back to a room and board type facility. Apparently the patient was getting involved in verbal altercations with her 2 female roommates. The patient was being looked after by the ACT team and they felt that the patient required rehospitalization. When on the mental health unit last she was stabilized with Invega Sustenna. She is also currently on lithium carbonate and Klonopin. She reports that she is feeling better now. She feels it was her environment that was triggering her behavior. She indicates she slept last night, appetite stable. She is reporting no suicidal or homicidal thoughts now. She is endorsing no symptoms of psychosis. She may be an impaired historian at this time, however. PAST PSYCHIATRIC HISTORY: The patient has had several inpatient psychiatric hospitalizations. She was just discharged from this unit on May 04 after an approximate 9-day stay. She does follow with [facility]. She is due for her next Invega Sustenna on the of this month. She is on lithium 600 mg at bedtime. Klonopin 2 mg at bedtime. Her first psychiatric hospitalization was in 1986. DIAGNOSIS: Of schizophrenia versus schizoaffective disorder. She has been on Haldol, Abilify and Luvox in the past. PAST MEDICAL HISTORY: History of COPD, DVT, GERD, hypertension. ALLERGIES: Include CODEINE, IBUPROFEN, THORAZINE, PROLIXIN. CHEMICAL DEPENDENCY HISTORY: Urine drug screen is negative. She reported no recent alcohol or marijuana use. She has a history of DUI in 1986. FAMILY PSYCHIATRIC HISTORY: None reported. No suicides in the family. FAMILY CHEMICAL DEPENDENCY HISTORY: Unknown. SOCIAL HISTORY: The patient is 47 years old. She is originally from [place], born and raised by both parents. She has 5 brothers, 3 sisters. She graduated from high school. She was in the [employer] from 1986 to 1987 and received a medical discharge. She is unemployed and on social security disability. No history of abuse reported. No legal history. MENTAL STATUS EXAM: The patient is a female appearing her stated age. She appears to be edentulous. She is dressed in hospital gowns. Eye contact is intermittent. Speech is fluent, spontaneous, nonpressured. She reports having no suicidal or homicidal ideation. She endorses feelings of frustration. She is reporting no auditory or visual hallucinations. She is endorsing no specific delusions. However, she could be an impaired historian. During our interaction she demonstrated no behavior indicating she is hypomanic or manic. She did demonstrate some irritability when she was informed she would continue with the Invega Sustenna injection. She was not aggressive, however. She is oriented to person, place, and date. She is able to name the days of the week. STRENGTHS: Income, community mental health support. WEAKNESSES. Insight into illness. INTELLECT: Average. IMPRESSION: Schizophrenia versus schizoaffective disorder. The patient has been admitted to the mental health unit involuntarily. There will be a demand for hearing scheduled. She is due to receive the Invega Sustenna next on 05/25/2018. We will use the 234 mg dose. She will continue on other psychotropic medications. We will monitor for safety. We will monitor for any need to change her medications. She will be seen by Internal Medicine for routine history and physical exam. MMODL / IJN: [id number] /
[2018-05-14] MEDS: LITHIUM CARBONATE 300 MG CAP PO SCH (20:08)
[2018-05-14] MEDS: clonazePAM 1 MG TAB PO SCH (20:09)
[2018-05-14] MEDS: ALBUTEROL INHALER 60 PUFF/8 GM INHALER INHALATION PRN (22:28)
[2018-05-15] MEDS: NICOTINE 7MG/24HR PATCH TRANSDERM SCH (09:07)
[2018-05-15] MEDS: metFORMIN 500 MG TAB PO SCH ×2 (09:07→17:22)
[2018-05-15] MEDS: FAMOTIDINE 20 MG TAB PO SCH (09:08)
[2018-05-15] MEDS: CYANOCOBALAMIN 500 MCG TAB PO SCH (09:08)
[2018-05-15] MEDS: MULTIVITAMINS, THERA 1 EACH TAB PO SCH (09:09)
[2018-05-15] MEDS: LORATADINE 10 MG TAB PO SCH (09:09)
[2018-05-15] MEDS: FERROUS SULFATE 325 MG TAB PO SCH (09:09)
[2018-05-15] MEDS: TRIAMTERENE-HCTZ 37.5-25MG 1 EACH CAP PO SCH (09:09)
[2018-05-15] MEDS: CALCIUM CARB-VIT D 500MG-200UN 1 EACH TAB PO SCH (09:09)
--- NOTE | 2018-05-15 11:00 | P.PN ---
Progress Note - Text Interval history: The patient's found in her room she follows me to an interview room. He reports having some feelings of irritability earlier in the day. She describes again some of the presenting circumstances causing this readmission. She states that she's been trying to attend groups she was able to eat. We reviewed her psychotropic medications. She indicates that she had been on Depakote in the past and it was causing excessive sedation. Mental status exam: The patient is alert she has a disheveled appearance she is dressed in hospital gowns. She is cooperative and directable. She has a staring eye contact. Speech is fluent spontaneous nonpressured. She is reporting no thoughts of harming herself or others. Incidentally during the conversation she describes some paranoid thoughts. Insight and judgment limited. She demonstrates no involuntary repetitive movements she demonstrates no verbal or physical aggressiveness. She is reporting no auditory or visual hallucinations. Plan: We will continue to monitor the patient in the supportive milieu. We will consider augmenting the invega with an oral agent. It may be she just needs more time with that in place for her to demonstrate efficacy. Vital signs reviewed. We will continue to monitor her for safety.
[2018-05-15] MEDS: LITHIUM CARBONATE 300 MG CAP PO SCH (20:23)
[2018-05-15] MEDS: valACYclovir 500 MG TAB PO SCH (20:24)
[2018-05-15] MEDS: clonazePAM 1 MG TAB PO SCH (20:24)
[2018-05-15] MEDS: ALBUTEROL INHALER 60 PUFF/8 GM INHALER INHALATION PRN (21:19)
[2018-05-16] MEDS: LORATADINE 10 MG TAB PO SCH (08:35)
[2018-05-16] MEDS: CYANOCOBALAMIN 500 MCG TAB PO SCH (08:35)
[2018-05-16] MEDS: CALCIUM CARB-VIT D 500MG-200UN 1 EACH TAB PO SCH (08:35)
[2018-05-16] MEDS: NICOTINE 7MG/24HR PATCH TRANSDERM SCH (08:35)
[2018-05-16] MEDS: TRIAMTERENE-HCTZ 37.5-25MG 1 EACH CAP PO SCH (08:36)
[2018-05-16] MEDS: valACYclovir 500 MG TAB PO SCH ×2 (08:36→20:38)
[2018-05-16] MEDS: FERROUS SULFATE 325 MG TAB PO SCH (08:36)
[2018-05-16] MEDS: FAMOTIDINE 20 MG TAB PO SCH (08:36)
[2018-05-16] MEDS: metFORMIN 500 MG TAB PO SCH ×2 (08:40→17:28)
[2018-05-16] MEDS: ALBUTEROL INHALER 60 PUFF/8 GM INHALER INHALATION PRN ×3 (08:57→20:53)
--- NOTE | 2018-05-16 11:19 | P.PN ---
Progress Note - Text Interval history: The patient is found in the [facility] with [facility] mental health staff she follows me to an interview room to speak. She is troubled by being here in the mental health unit and is hoping to be discharged. She asked by she was admitted. We discussed the need for us to stabilize her mood and address symptoms of psychosis. I was able to review documentation from [facility] regarding her last psychiatric med review. She was started on lithium 600 mg at bedtime and this was a new medication as of 05/09/2018. The patient has no input as to any side effects or efficacy she may feel from it so far. We did get a lithium level upon presentation but that was random of 0.8. BUN was normal creatinine was mildly elevated. We will recheck the lithium level BUN/creatinine tomorrow. She is here on a demand for hearing which may happen this Wednesday. We discussed the possibility of different sharyn cement for her. Mental status exam: The patient is alert she has erythematous regions on her lower lip likely due to herpes infection. She is dressed in her own clothing. Hygiene grooming adequate. She has a bland affect. She lacks insight into the reason for this admission. She was easily directed during the session. She demonstrated spontaneous speech that was nonpressured. She had little spontaneous speech during our interaction this morning. She is reporting no suicidal or homicidal thoughts she is reporting no auditory or visual hallucinations or specific delusions. She does spontaneously describe paranoid persecutory thoughts so regarding her roommates at the room and board. Staff report that her thoughts appear disorganized and different points during the day. She demonstrated no verbal or physical aggressiveness. Plan: The patient is not due for her next Invega Sustenna injection until 05/25/2018. We will get lithium labs as noted above and we'll consider titratin g the dose. We will investigate any prior use of Depakote further. We are awaiting a scheduled court hearing regarding her hospitalization. We will monitor her for safety and we'll continue to encourage participation in the milieu.
[2018-05-16] MEDS: MULTIVITAMINS, THERA 1 EACH TAB PO SCH (11:49)
[2018-05-16] MEDS: LITHIUM CARBONATE 300 MG CAP PO SCH (20:38)
[2018-05-16] MEDS: clonazePAM 1 MG TAB PO SCH (20:39)
[2018-05-17] MEDS: metFORMIN 500 MG TAB PO SCH ×2 (07:39→17:39)
[2018-05-17] MEDS: CYANOCOBALAMIN 500 MCG TAB PO SCH (08:30)
[2018-05-17] MEDS: LORATADINE 10 MG TAB PO SCH (08:30)
[2018-05-17] MEDS: FAMOTIDINE 20 MG TAB PO SCH (08:30)
[2018-05-17] MEDS: CALCIUM CARB-VIT D 500MG-200UN 1 EACH TAB PO SCH (08:30)
[2018-05-17] MEDS: NICOTINE 7MG/24HR PATCH TRANSDERM SCH (08:30)
[2018-05-17] MEDS: FERROUS SULFATE 325 MG TAB PO SCH (08:31)
[2018-05-17] MEDS: TRIAMTERENE-HCTZ 37.5-25MG 1 EACH CAP PO SCH (08:32)
[2018-05-17] MEDS: valACYclovir 500 MG TAB PO SCH ×2 (08:32→20:42)
--- NOTE | 2018-05-17 09:16 | P.PN ---
Progress Note - Text Interval history: The patient is found in her room she follows me to an interview room. She indicates that she had an uneventful last evening. She states another patient was quite loud. She has for room change which was arranged. We reviewed her psychotropic medication she has no questions today. Her blood work was drawn we are awaiting the results. She did meeting yesterday with the [facility] mental health liaison. Mental status exam: The patient is alert she is dressed in hospital gowns hygiene grooming appear adequate. She seated calmly in the chair. She reports her mood is okay. She is reporting no suicidal or homicidal ideation intent or plan. She is endorsing no hallucinations. She endorses no delusions. She does still speak of some paranoid thoughts related to events prior to this admission. She demonstrates no verbal or physical aggressiveness. She does have some psychomotor slowing. She demonstrates no involuntary repetitive movements. Insight and judgment is limited. Affect is bland. Plan: The patient will continue on the current psychotropic medication. We will await the results of the lithium level. I will consider titrating the dose of the lithium further if needed. We are waiting the date of her court hearing. We will monitor her for safety and encourage participation in the milieu. Vital signs reviewed.
[2018-05-17] MEDS: ALBUTEROL INHALER 60 PUFF/8 GM INHALER INHALATION PRN ×2 (12:04→17:05)
[2018-05-17] MEDS: MULTIVITAMINS, THERA 1 EACH TAB PO SCH (12:13)
[2018-05-17] MEDS: ACETAMINOPHEN TAB 325 MG TAB PO PRN (17:39)
[2018-05-17] MEDS: clonazePAM 1 MG TAB PO SCH (20:42)
[2018-05-17] MEDS: LITHIUM CARBONATE 300 MG CAP PO SCH (20:42)
[2018-05-18] MEDS: ALBUTEROL INHALER 60 PUFF/8 GM INHALER INHALATION PRN ×3 (04:03→21:20)
[2018-05-18] MEDS: valACYclovir 500 MG TAB PO SCH ×2 (07:53→20:38)
[2018-05-18] MEDS: LORATADINE 10 MG TAB PO SCH (07:53)
[2018-05-18] MEDS: metFORMIN 500 MG TAB PO SCH ×2 (07:53→16:48)
[2018-05-18] MEDS: TRIAMTERENE-HCTZ 37.5-25MG 1 EACH CAP PO SCH (07:53)
[2018-05-18] MEDS: NICOTINE 7MG/24HR PATCH TRANSDERM SCH (07:53)
[2018-05-18] MEDS: CYANOCOBALAMIN 500 MCG TAB PO SCH (07:53)
[2018-05-18] MEDS: CALCIUM CARB-VIT D 500MG-200UN 1 EACH TAB PO SCH (07:53)
[2018-05-18] MEDS: FERROUS SULFATE 325 MG TAB PO SCH (07:55)
[2018-05-18] MEDS: FAMOTIDINE 20 MG TAB PO SCH (07:55)
--- NOTE | 2018-05-18 11:09 | P.PN ---
Progress Note - Text Interval history: The patient is found in her room she follows me to an interview room. She indicates her mood is okay. She states that she's had some difficulty with coughing and can't take a deep breath. She is observed breathing comfortably in no acute distress for the duration of our interaction. She has been attending groups. Staff report that she will at times have some bizarre content that she verbalizes it seems unrelated to the topic being discussed. We reviewed her psychotropic medication. The lithium level came bo k at 1.0 evening creatinine are within normal limits. The lithium is a new medication as of the first of this month. Mental status exam: The patient is alert she is dressed in her own clothing hygiene is adequate. Speech is fluent spontaneous nonpressured. She reports no suicidal or homicidal ideation intent or plan. She is reporting no symptoms of psychosis including hallucinations however she does seem to have some times where she is experiencing paranoid thought. Thought process can be disorganized at times. She is directable and overall is pleasant. She demonstrates no verbal or physical aggressiveness she demonstrates no involuntary repetitive movements. Insight and judgment limited. Plan: The patient will continue on her current psychotropic medications. We will allow the lithium time to demonstrate further efficacy in terms of thought organization. She is not due for the [employer] until 05/25/2018. That is the same date of her court hearing. We will monitor her for safety and encourage participation in the milieu.
[2018-05-18] MEDS: MULTIVITAMINS, THERA 1 EACH TAB PO SCH (11:10)
[2018-05-18] MEDS: guaiFENesin SYRUP 100MG/5ML 200 MG/10 ML CUP PO PRN ×2 (15:17→21:18)
[2018-05-18] MEDS: LITHIUM CARBONATE 300 MG CAP PO SCH (20:38)
[2018-05-18] MEDS: clonazePAM 1 MG TAB PO SCH (20:38)
[2018-05-19] MEDS: guaiFENesin SYRUP 100MG/5ML 200 MG/10 ML CUP PO PRN (02:40)
[2018-05-19] MEDS: FAMOTIDINE 20 MG TAB PO SCH (08:07)
[2018-05-19] MEDS: FERROUS SULFATE 325 MG TAB PO SCH (08:07)
[2018-05-19] MEDS: CYANOCOBALAMIN 500 MCG TAB PO SCH (08:07)
[2018-05-19] MEDS: TRIAMTERENE-HCTZ 37.5-25MG 1 EACH CAP PO SCH (08:08)
[2018-05-19] MEDS: LORATADINE 10 MG TAB PO SCH (08:08)
[2018-05-19] MEDS: metFORMIN 500 MG TAB PO SCH ×2 (08:08→17:47)
[2018-05-19] MEDS: CALCIUM CARB-VIT D 500MG-200UN 1 EACH TAB PO SCH (08:08)
[2018-05-19] MEDS: NICOTINE 7MG/24HR PATCH TRANSDERM SCH (08:08)
--- NOTE | 2018-05-19 11:09 | P.PN ---
Progress Note - Text Interval history: The patient is found in the hallway she follows me to an interview room. She indicates her mood is frustrated today. She describes a long scenario in which she felt she couldn't get her shampoo and conditioner in a timely fashion. She reports sleeping well last night staff reported she slept only 4 hours and it appeared to be restless. The patient is overly apologetic during session for unexplained reasons. She demonstrates some lability of affect today. Mental status exam: The patient is alert she has showered she is dressed in hospital gowns. Eye contact is intermittent. She initially has a bland affect and then becomes tearful later in the session for unclear reasons. She endorses a frustrated mood. Insight into symptoms is impaired. She is reporting no suicidal or homicidal ideation. She is endorsing no auditory or visual hallucinations. She does continue to have delusional thought content. She demonstrates no verbal or physical aggressiveness. Thought process can be circumstantial and tangential at times. Plan: The patient will continue on her current psychotropic medication. We will monitor her for safety and encourage participation in the milieu. We will consider augmenting the invega if needed. Vital signs reviewed. Reality orientation is provided.
[2018-05-19] MEDS: MULTIVITAMINS, THERA 1 EACH TAB PO SCH (11:53)
[2018-05-19] MEDS: ALBUTEROL INHALER 60 PUFF/8 GM INHALER INHALATION PRN ×2 (12:03→20:28)
[2018-05-19] MEDS: clonazePAM 1 MG TAB PO SCH (20:13)
[2018-05-19] MEDS: LITHIUM CARBONATE 300 MG CAP PO SCH (20:13)
[2018-05-19] MEDS: ACETAMINOPHEN TAB 325 MG TAB PO PRN (21:20)
--- NOTE | 2018-05-20 08:03 | P.PN ---
Progress Note - Text Interval history: The patient is found in the hallway she follows me to an interview room. She reports that her mood is down. She reports being tearful last night because people are being discharged and she will miss them. She describes some apprehension about new people been admitted to the mental health unit. She did sleep last night staff reports she slept 7 hours. She has been attending groups. Appetite is intact. She's been compliant with medication. Mental status exam: The patient is alert she has a disheveled appearance she is dressed in hospital gowns hygiene is adequate. Speech is fluent spontaneous nonpressured. She will answer questions directly and then will have extraneous information as well. She can be somatically preoccupied at times and perseverative at times as well. She reports no thoughts of harming herself or others she indicates feeling safe in the hospital. She demonstrates some lability of affect she becomes tearful during the session but does reconstitute fairly quickly. She demonstrates no verbal or physical aggressiveness. She demonstrates no involuntary repetitive movements. Insight and judgment impaired. Plan: The patient will continue on her current psychotropic medications. We will continue monitoring her for safety and encourage participation in the milieu. Vital signs reviewed. Reality orientation and reassurance is provided. We are awaiting her court hearing on 05/25/2018.
[2018-05-20] MEDS: metFORMIN 500 MG TAB PO SCH ×2 (08:58→17:25)
[2018-05-20] MEDS: CYANOCOBALAMIN 500 MCG TAB PO SCH (08:59)
[2018-05-20] MEDS: LORATADINE 10 MG TAB PO SCH (08:59)
[2018-05-20] MEDS: TRIAMTERENE-HCTZ 37.5-25MG 1 EACH CAP PO SCH (08:59)
[2018-05-20] MEDS: FAMOTIDINE 20 MG TAB PO SCH (08:59)
[2018-05-20] MEDS: NICOTINE 7MG/24HR PATCH TRANSDERM SCH (08:59)
[2018-05-20] MEDS: FERROUS SULFATE 325 MG TAB PO SCH (08:59)
[2018-05-20] MEDS: CALCIUM CARB-VIT D 500MG-200UN 1 EACH TAB PO SCH (08:59)
[2018-05-20] MEDS: MULTIVITAMINS, THERA 1 EACH TAB PO SCH (13:20)
[2018-05-20] MEDS: ALBUTEROL INHALER 60 PUFF/8 GM INHALER INHALATION PRN (21:05)
[2018-05-20] MEDS: clonazePAM 1 MG TAB PO SCH (21:11)
[2018-05-20] MEDS: LITHIUM CARBONATE 300 MG CAP PO SCH (21:11)
[2018-05-21] MEDS: ALBUTEROL INHALER 60 PUFF/8 GM INHALER INHALATION PRN ×2 (08:31→20:59)
[2018-05-21] MEDS: CALCIUM CARB-VIT D 500MG-200UN 1 EACH TAB PO SCH (09:06)
[2018-05-21] MEDS: FERROUS SULFATE 325 MG TAB PO SCH (09:06)
[2018-05-21] MEDS: metFORMIN 500 MG TAB PO SCH ×2 (09:06→16:27)
[2018-05-21] MEDS: TRIAMTERENE-HCTZ 37.5-25MG 1 EACH CAP PO SCH (09:06)
[2018-05-21] MEDS: CYANOCOBALAMIN 500 MCG TAB PO SCH (09:06)
[2018-05-21] MEDS: FAMOTIDINE 20 MG TAB PO SCH (09:06)
[2018-05-21] MEDS: NICOTINE 7MG/24HR PATCH TRANSDERM SCH (09:06)
[2018-05-21] MEDS: LORATADINE 10 MG TAB PO SCH (09:06)
--- NOTE | 2018-05-21 12:03 | P.PN ---
Progress Note - Text Progress Note Date: 05/21/18 Interval history: Patient is seen in cross coverage today. She says initially last night she was walking the halls and describes that she had some itching but she was able to settle down afterwards and states she did take her nicotine patch off. Says she may be having some visitors tonight. She does not seem to voice any adverse psychotropic medication side effects. Mental status exam: She is alert and cooperative with the interview. She does not show any agitation. Her mood overall seems to be better. She denies any thoughts of harm to self or others. She does not verbalize any hallucinations. Plan: Patient will be maintained on current psychotropic medication regimen. Continue to monitor for any medication side effects and monitor her ongoing response to treatment.
[2018-05-21] MEDS: MULTIVITAMINS, THERA 1 EACH TAB PO SCH (12:24)
[2018-05-21] MEDS: clonazePAM 1 MG TAB PO SCH (21:07)
[2018-05-21] MEDS: LITHIUM CARBONATE 300 MG CAP PO SCH (21:07)
[2018-05-22] MEDS: LORATADINE 10 MG TAB PO SCH (08:05)
[2018-05-22] MEDS: TRIAMTERENE-HCTZ 37.5-25MG 1 EACH CAP PO SCH (08:05)
[2018-05-22] MEDS: CALCIUM CARB-VIT D 500MG-200UN 1 EACH TAB PO SCH (08:05)
[2018-05-22] MEDS: metFORMIN 500 MG TAB PO SCH ×2 (08:05→16:43)
[2018-05-22] MEDS: FAMOTIDINE 20 MG TAB PO SCH (08:05)
[2018-05-22] MEDS: CYANOCOBALAMIN 500 MCG TAB PO SCH (08:05)
[2018-05-22] MEDS: FERROUS SULFATE 325 MG TAB PO SCH (08:05)
[2018-05-22] MEDS: NICOTINE 7MG/24HR PATCH TRANSDERM SCH (08:06)
[2018-05-22] MEDS: MULTIVITAMINS, THERA 1 EACH TAB PO SCH (12:26)
--- NOTE | 2018-05-22 15:42 | P.PN ---
Progress Note - Text Progress Note Date: 05/22/18 Interval history: Patient seen in cross coverage today. She reports that she had difficulty falling asleep last night. She states that she had hopes for someone from the ACT team to come and visit her last night, she did not have a visitation it sounds like and it took her a while to fall asleep and she was itching herself last night. When she was able to fall asleep it sounds like she was able to sleep pretty well. She also talks about being upset regarding her court paperwork mentioning [facility] and [facility]. We discussed those as alternative sites of treatment and we talked about her just focusing on receiving treatment here at this time. Mental status exam: She is alert and cooperative with the interview. She describes her mood is overall better. She does become tearful at one time during the interview. She denies any thoughts of harm to self or others. She denies any hallucinations. She does not show any agitation. Plan: Patient will be maintained on current psychotropic medication regimen. Continue to monitor for any medication side effects monitor her ongoing response to treatment.
[2018-05-22] MEDS: ALBUTEROL INHALER 60 PUFF/8 GM INHALER INHALATION PRN (16:53)
[2018-05-22] MEDS: LITHIUM CARBONATE 300 MG CAP PO SCH (21:21)
[2018-05-22] MEDS: clonazePAM 1 MG TAB PO SCH (21:21)
--- NOTE | 2018-05-23 08:54 | P.PN ---
Progress Note - Text Interval history: The patient reports a dysphoric mood. She is tearful. She discusses questions she has regarding the upcoming court hearing. She verbalizes a misunderstanding of some of the information on the form and the address that, answering her questions. In reviewing weekend notes it appears Dr. Sol attempted to do the same. We reviewed her psychotropic medications. She indicates having fragmented sleep at night. Staff record she slept 5 hours. She indicates that she is going to groups. Mental status exam: The patient is disheveled hygiene is adequate she is dressed in hospital gowns. She is wearing eyeglasses. Eye contact is appropriate speech is fluent spontaneous nonpressured. Very soon after initiating our conversation she becomes tearful and this persist throughout a significant portion of the interview. She describes distressing thoughts about her father her sister. She ruminates over the court paperwork she has received. She does respond to reassurance and redirection. Thought process still demonstrate some disorganization. She is reporting no suicidal or homicidal thoughts. She is e ndorsing no auditory or visual hallucinations she describes some feelings of persecution. Insight and judgment limited. She demonstrates no verbal or physical aggressiveness she demonstrates no involuntary abnormal movements. Plan: The patient will continue on her current psychotropic medications. I will add a small dose of Seroquel 50 mg at bedtime. We will monitor for any sedation or orthostasis. We are doing this to help with sleep consistency and possibly to start as an augmentation strategy for her psychosis. Mood and affect remain labile at times. We will continue to monitor for safety and encourage participation in the milieu. Vital signs reviewed.
[2018-05-23] MEDS: FAMOTIDINE 20 MG TAB PO SCH (08:56)
[2018-05-23] MEDS: CALCIUM CARB-VIT D 500MG-200UN 1 EACH TAB PO SCH (08:56)
[2018-05-23] MEDS: metFORMIN 500 MG TAB PO SCH ×2 (08:56→17:29)
[2018-05-23] MEDS: NICOTINE 7MG/24HR PATCH TRANSDERM SCH (08:56)
[2018-05-23] MEDS: CYANOCOBALAMIN 500 MCG TAB PO SCH (08:56)
[2018-05-23] MEDS: LORATADINE 10 MG TAB PO SCH (08:57)
[2018-05-23] MEDS: TRIAMTERENE-HCTZ 37.5-25MG 1 EACH CAP PO SCH (08:57)
[2018-05-23] MEDS: FERROUS SULFATE 325 MG TAB PO SCH (08:57)
[2018-05-23] MEDS: MULTIVITAMINS, THERA 1 EACH TAB PO SCH (11:56)
[2018-05-23] MEDS: ALBUTEROL INHALER 60 PUFF/8 GM INHALER INHALATION PRN ×3 (12:40→21:00)
[2018-05-23] MEDS: clonazePAM 1 MG TAB PO SCH (20:50)
[2018-05-23] MEDS: QUEtiapine 50 MG TAB PO SCH (20:50)
[2018-05-23] MEDS: LITHIUM CARBONATE 300 MG CAP PO SCH (20:50)
[2018-05-24] MEDS: CALCIUM CARB-VIT D 500MG-200UN 1 EACH TAB PO SCH (08:06)
[2018-05-24] MEDS: FERROUS SULFATE 325 MG TAB PO SCH (08:07)
[2018-05-24] MEDS: metFORMIN 500 MG TAB PO SCH ×2 (08:07→17:05)
[2018-05-24] MEDS: CYANOCOBALAMIN 500 MCG TAB PO SCH (08:07)
[2018-05-24] MEDS: FAMOTIDINE 20 MG TAB PO SCH (08:07)
[2018-05-24] MEDS: NICOTINE 7MG/24HR PATCH TRANSDERM SCH (08:07)
[2018-05-24] MEDS: LORATADINE 10 MG TAB PO SCH (08:07)
[2018-05-24] MEDS: TRIAMTERENE-HCTZ 37.5-25MG 1 EACH CAP PO SCH (08:08)
[2018-05-24] MEDS: ALBUTEROL INHALER 60 PUFF/8 GM INHALER INHALATION PRN ×2 (09:27→15:56)
--- NOTE | 2018-05-24 09:49 | P.PN ---
Progress Note - Text Interval history: The patient is found in her room she follows me to an interview room. She indicates her mood is better. Staff recorded she slept 7 hours. We initiated the Seroquel last evening. She feels it helped her sleep she does feel tired this morning as well. She indicates that she has been attending groups. She describes having a phone conversation with her boyfriend and expects that he may visit tomorrow. Mental status exam: The patient is an overweight female appearing her stated age. She is wearing her dentures today. She is a disheveled appearance hygiene is adequate she is dressed in several hospital gowns. Eye contact is intermittent. She reports her mood is okay but she feels tired. She is r eporting no suicidal or homicidal ideation. Thought process is a little more organized today. She demonstrates less lability of affect. She continues to have some ongoing paranoid thoughts. Insight and judgment limited. She demonstrates no verbal or physical aggressiveness. She demonstrates no involuntary repetitive movements. Plan: The patient will continue on her current medications. We will monitor the sedation due to Seroquel. Consider given the dose earlier in the evening or reducing it. She will be due for her Invega Sustenna tomorrow. She has court scheduled for tomorrow afternoon. We will monitor her for safety. Vital signs reviewed. She is encouraged to appropriately participate in the milieu.
[2018-05-24] MEDS: MULTIVITAMINS, THERA 1 EACH TAB PO SCH (12:13)
[2018-05-24] MEDS: QUEtiapine 50 MG TAB PO SCH (20:03)
[2018-05-24] MEDS: clonazePAM 1 MG TAB PO SCH (20:03)
[2018-05-24] MEDS: LITHIUM CARBONATE 300 MG CAP PO SCH (20:03)
[2018-05-25] MEDS: LORATADINE 10 MG TAB PO SCH (08:33)
[2018-05-25] MEDS: FERROUS SULFATE 325 MG TAB PO SCH (08:33)
[2018-05-25] MEDS: FAMOTIDINE 20 MG TAB PO SCH (08:33)
[2018-05-25] MEDS: metFORMIN 500 MG TAB PO SCH ×2 (08:33→17:18)
[2018-05-25] MEDS: CYANOCOBALAMIN 500 MCG TAB PO SCH (08:33)
[2018-05-25] MEDS: CALCIUM CARB-VIT D 500MG-200UN 1 EACH TAB PO SCH (08:33)
[2018-05-25] MEDS: TRIAMTERENE-HCTZ 37.5-25MG 1 EACH CAP PO SCH (08:34)
[2018-05-25] MEDS: NICOTINE 7MG/24HR PATCH TRANSDERM SCH (08:34)
[2018-05-25] MEDS ORDERED: PALIPERIDONE IM 234 MG/1.5 ML SYG IM SCH (09:00)
[2018-05-25] MEDS: ALBUTEROL INHALER 60 PUFF/8 GM INHALER INHALATION PRN ×2 (09:18→20:59)
--- NOTE | 2018-05-25 11:06 | P.PN ---
Progress Note - Text Interval history: The patient is found in the hallway she follows me to an interview room. She indicates having some concerns regarding court today. Specifically she is worried that she will not have appropriate attire and be presentable. We reviewed her psychotropic medications her questions were answered. She is due for the invega systemic injection today. Vital signs reviewed she is tolerating the addition of the Seroquel. We discussed her progress during treatment team meeting. Staff feel that the patient is appropriate participating in the milieu. Mental status exam: The patient is alert she is dressed in hospital gowns hygiene adequate grooming adequate. Speech is fluent spontaneous nonpressured. She expresses feelings of frustration that she does not have clothing she would like to wear to court. She is reporting no suicidal or homicidal ideation intent or plan. She is reporting no auditory or visual hallucinations. She is describing no paranoid thoughts today. Thought process is slowly becoming more organized. Insight and judgment slowly improving. It does appear that she does have chronic baseline pathology however. Plan: The patient will continue on her current medication she is due for invega systemic injection today. She has court scheduled for this afternoon. We will continue to monitor her for safety. We will anticipate a discharge for her in the next 1-2 days. Vital signs reviewed.
[2018-05-25] MEDS: MULTIVITAMINS, THERA 1 EACH TAB PO SCH (11:23)
[2018-05-25] MEDS: clonazePAM 1 MG TAB PO SCH (20:50)
[2018-05-25] MEDS: LITHIUM CARBONATE 300 MG CAP PO SCH (20:51)
[2018-05-25] MEDS: QUEtiapine 50 MG TAB PO SCH (20:51)
[2018-05-26] MEDS: FAMOTIDINE 20 MG TAB PO SCH (08:19)
[2018-05-26] MEDS: CYANOCOBALAMIN 500 MCG TAB PO SCH (08:20)
[2018-05-26] MEDS: TRIAMTERENE-HCTZ 37.5-25MG 1 EACH CAP PO SCH (08:21)
[2018-05-26] MEDS: CALCIUM CARB-VIT D 500MG-200UN 1 EACH TAB PO SCH (08:21)
[2018-05-26] MEDS: FERROUS SULFATE 325 MG TAB PO SCH (08:21)
[2018-05-26] MEDS: metFORMIN 500 MG TAB PO SCH ×2 (08:21→17:27)
[2018-05-26] MEDS: LORATADINE 10 MG TAB PO SCH (08:21)
[2018-05-26] MEDS: NICOTINE 7MG/24HR PATCH TRANSDERM SCH (08:22)
[2018-05-26] MEDS: ALBUTEROL INHALER 60 PUFF/8 GM INHALER INHALATION PRN (09:05)
--- NOTE | 2018-05-26 10:57 | P.PN ---
Progress Note - Text Interval history: The patient is found in the hallway she follows me to an interview room. She indicates she felt court went well. Reports from the [facility] liaison indicated the patient seemed to be disorganized. 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 The patient slept well last night staff reported she slept 7 hours. She continues to make a good effort in attending groups. She has been compliant with medications. She did receive the invega systemic injection yesterday. Mental status exam: The patient is alert she is dressed in her own clothing hygiene grooming are good. She reports her mood was good she felt court went well yesterday. She indicated she is looking forward to going home. We discussed the reservations we had discharging her today. She became tearful and expressed feelings of disappointment. She handled the conversation well she demonstrated no agitated behavior she remained directable throughout the conversation. She reports no suicidal or homicidal thoughts she is endorsing no auditory or visual hallucinations. She may have some residual delusional thoughts she did not describe those today. In terms of thought process certainly there are times or she is linear she can be circumstantial at times and at times she will demonstrate tangential thinking. There were no loose associations or flight of ideas. Insight and judgment are slowly improving. Again she's been cooperative with recommendations on the mental health unit. Plan: The patient will continue on her current psychotropic medications. I do feel that the acute nature of her symptoms is resolving. There may be some residual disorganization of thought and psychosis but I believe she is moving towards baseline. We discussed the possibility of having her transition to a long term temporarily. She does benefit from the supervision and structure provided here. Vital signs reviewed. We will continue to encourage full participation in group
[2018-05-26] MEDS: MULTIVITAMINS, THERA 1 EACH TAB PO SCH (12:40)
[2018-05-26] MEDS: LITHIUM CARBONATE 300 MG CAP PO SCH (20:26)
[2018-05-26] MEDS: QUEtiapine 50 MG TAB PO SCH (20:26)
[2018-05-26] MEDS: clonazePAM 1 MG TAB PO SCH (20:26)
[2018-05-27] MEDS: NICOTINE 7MG/24HR PATCH TRANSDERM SCH (07:54)
[2018-05-27] MEDS: LORATADINE 10 MG TAB PO SCH (07:55)
[2018-05-27] MEDS: TRIAMTERENE-HCTZ 37.5-25MG 1 EACH CAP PO SCH (07:55)
[2018-05-27] MEDS: metFORMIN 500 MG TAB PO SCH ×2 (07:55→17:32)
[2018-05-27] MEDS: CALCIUM CARB-VIT D 500MG-200UN 1 EACH TAB PO SCH (07:55)
[2018-05-27] MEDS: FAMOTIDINE 20 MG TAB PO SCH (07:55)
[2018-05-27] MEDS: CYANOCOBALAMIN 500 MCG TAB PO SCH (07:55)
[2018-05-27] MEDS: FERROUS SULFATE 325 MG TAB PO SCH (07:55)
--- NOTE | 2018-05-27 11:49 | P.PN ---
Progress Note - Text Interval history: The patient's found in group she follows me to an interview room. She states that she continues to deal with feelings disappointment due to not being discharged yesterday. We discussed our efforts in finding appropriate placement for her upon discharge. She indicates having a good visit with a community mental health clinician, Nathalie. The patient did sleep better last evening she has been attending groups staff report no behavioral disturbances. Mental status exam: The patient is alert she is dressed in the same clothing is yesterday hygiene grooming are adequate. Speech is fluent spontaneous. Affect is brighter she demonstrated no tearfulness during our interaction. She denies having any suicidal or homicidal ideation intent or plan. She may have residual symptoms of psychosis but those were not verbalized or demonstrated during session today. She reports no hallucinations. Thought process was more organized during this brief interaction. She has struggled with that during the hospitalization however. Insight and judgment slowly improving. Plan: The patient will continue on her current psychotropic medications we will monitor her for safety and encourage her participation in the milieu. Vital signs reviewed. We will continue to discuss appropriate placement options with [facility].
[2018-05-27] MEDS: MULTIVITAMINS, THERA 1 EACH TAB PO SCH (12:27)
[2018-05-27 13:14] VITALS: BMI 29.8
[2018-05-27] MEDS: QUEtiapine 50 MG TAB PO SCH (19:51)
[2018-05-27] MEDS: clonazePAM 1 MG TAB PO SCH (19:51)
[2018-05-27] MEDS: LITHIUM CARBONATE 300 MG CAP PO SCH (19:51)
[2018-05-28] MEDS: metFORMIN 500 MG TAB PO SCH ×2 (07:54→17:30)
[2018-05-28] MEDS: FERROUS SULFATE 325 MG TAB PO SCH (07:55)
[2018-05-28] MEDS: CALCIUM CARB-VIT D 500MG-200UN 1 EACH TAB PO SCH (07:55)
[2018-05-28] MEDS: LORATADINE 10 MG TAB PO SCH (07:55)
[2018-05-28] MEDS: FAMOTIDINE 20 MG TAB PO SCH (07:55)
[2018-05-28] MEDS: CYANOCOBALAMIN 500 MCG TAB PO SCH (07:55)
[2018-05-28] MEDS: NICOTINE 7MG/24HR PATCH TRANSDERM SCH (07:56)
[2018-05-28] MEDS: TRIAMTERENE-HCTZ 37.5-25MG 1 EACH CAP PO SCH (07:56)
[2018-05-28] MEDS: ALBUTEROL INHALER 60 PUFF/8 GM INHALER INHALATION PRN ×2 (11:50→21:19)
[2018-05-28] MEDS: MULTIVITAMINS, THERA 1 EACH TAB PO SCH (11:52)
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
[2018-05-28] MEDS: QUEtiapine 50 MG TAB PO SCH (20:07)
[2018-05-28] MEDS: clonazePAM 1 MG TAB PO SCH (20:07)
[2018-05-28] MEDS: LITHIUM CARBONATE 300 MG CAP PO SCH (20:07)
[2018-05-29] MEDS: metFORMIN 500 MG TAB PO SCH ×2 (07:43→17:37)
[2018-05-29] MEDS: CALCIUM CARB-VIT D 500MG-200UN 1 EACH TAB PO SCH (07:44)
[2018-05-29] MEDS: FERROUS SULFATE 325 MG TAB PO SCH (07:44)
[2018-05-29] MEDS: LORATADINE 10 MG TAB PO SCH (07:44)
[2018-05-29] MEDS: CYANOCOBALAMIN 500 MCG TAB PO SCH (07:44)
[2018-05-29] MEDS: FAMOTIDINE 20 MG TAB PO SCH (07:44)
[2018-05-29] MEDS: NICOTINE 7MG/24HR PATCH TRANSDERM SCH (07:45)
[2018-05-29] MEDS: TRIAMTERENE-HCTZ 37.5-25MG 1 EACH CAP PO SCH (07:45)
[2018-05-29] MEDS: MULTIVITAMINS, THERA 1 EACH TAB PO SCH (12:25)
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
[2018-05-29 19:49] LABS: Glucose,Whole Blood 120 mg/dL (75-99)
[2018-05-29] MEDS: clonazePAM 1 MG TAB PO SCH (20:44)
[2018-05-29] MEDS: QUEtiapine 50 MG TAB PO SCH (20:44)
[2018-05-29] MEDS: LITHIUM CARBONATE 300 MG CAP PO SCH (20:44)
[2018-05-30] MEDS: metFORMIN 500 MG TAB PO SCH ×2 (08:58→17:50)
[2018-05-30] MEDS: CYANOCOBALAMIN 500 MCG TAB PO SCH (09:00)
[2018-05-30] MEDS: CALCIUM CARB-VIT D 500MG-200UN 1 EACH TAB PO SCH (09:00)
[2018-05-30] MEDS: FAMOTIDINE 20 MG TAB PO SCH (09:01)
[2018-05-30] MEDS: FERROUS SULFATE 325 MG TAB PO SCH (09:01)
[2018-05-30] MEDS: TRIAMTERENE-HCTZ 37.5-25MG 1 EACH CAP PO SCH (09:01)
[2018-05-30] MEDS: NICOTINE 7MG/24HR PATCH TRANSDERM SCH (09:01)
[2018-05-30] MEDS: LORATADINE 10 MG TAB PO SCH (09:01)
[2018-05-30] MEDS: MULTIVITAMINS, THERA 1 EACH TAB PO SCH (09:02)
[2018-05-30 09:14] LABS: T4, Free (Free Thyroxine) 0.72 ng/dL (0.78-2.19)
--- NOTE | 2018-05-30 11:12 | P.PN ---
Progress Note - Text Interval history: The patient is found in the [facility] she follows me to an interview room. She indicates she had a good weekend. Staff reported she slept 6 hours last night. She continues to attend groups. Staff feel that the patient has been demonstrating a more organized thought process over the weekend including today. During treatment team meeting we discussed discharge possibilities. He continued to entertain the idea of a temporary [facility] placement versus going back to the same room and board. The patient has no questions regarding her psychotropic medications. Mental status exam: The patient is alert she stressor own clothing hygiene grooming are good speech is fluent nonpressured. Affect is initially bright. She denies having any suicidal or homicidal ideation intent or plan. She is reporting no auditory or visual hallucinations or any specific delusions. She attends to the conversation adequately. Upon learning we were not discharging her today she becomes briefly tearful than apologetic. She reconstitutes. She demonstrates no verbal or physical aggressiveness she demonstrates no involunt ariane repetitive movements. Insight and judgment slowly improving. Plan: The patient is demonstrating clinical improvement. We hope to discharge her midweek. We'll continue discussing which placement option is the most appropriate for her. Vital signs reviewed. Continued psychotropic medications as written.
[2018-05-30] MEDS: ALBUTEROL INHALER 60 PUFF/8 GM INHALER INHALATION PRN ×2 (13:33→22:09)
--- NOTE | 2018-05-30 18:56 | P.PN ---
Subjective Progress Note Date: 05/30/18 Patient seen and examined informed that she has hypothyroidism, discussed plan of care Objective - Vital Signs Vital signs: Vital Signs Temp 97.6 F 05/30/18 00:22 Pulse 60 05/30/18 00:22 Resp 14 05/30/18 00:22 BP 112/68 05/30/18 00:22 Pulse Ox 93 L 05/18/18 03:13 Intake & Output 05/29/18 05/30/18 05/30/18 18:59 06:59 18:59 Weight 81.8 kg - Exam Constitutional: No acute distress, conversant, pleasant Eyes: Anicteric sclerae, moist conjunctiva, no lid-lag, PERRLA ENMT: NC/AT,Oropharynx clear, no erythema, exudates Neck:Supple, FROM, no masses, or JVD, No carotid bruits; No thyromegaly Lungs: Clear to auscultation, Clear to percussion, Normal respiratory effort, no accessory muscle use Cardiovascular: Heart regular in rate and rhythm, No murmurs, gallops, or rubs no peripheral edema Abdominal: Soft Nontender, nom distended, no guarding, no rebound or rigidity, Normoactive bowel sounds No hepatomegaly, No splenomegaly, No palpable mass No abdominal wall hernia noted Skin: Normal temperature, tone, texture, turgor, No induration No subcutaneous nodules, No rash, lesions, No ulcers Extremities:No digital cyanosis No clubbing, Pedal pulses intact and symmetrical Radial pulses intact and symmetrical Normal gait and station, No calf tenderness Psychiatric: Alert and oriented to person, place and time, Appropriate affect Intact judgement Neuro: Muscles Strength 5/5 in all 4 extremities, Sensation to light touch grossly present throughout, Cranial nerves II-XII grossly intact. No focal sensory deficits - Labs CBC & Chem 7: 05/13/18 14:53 05/17/18 08:59 Labs: Abnormal Lab Results - Last 24 Hours (Table) 05/29/18 05/30/18 Range/Units 19:45 08:08 POC Glucose (mg/dL) 120 H (75-99) mg/dL TSH 11.300 H (0.465-4.680) mIU/L Free T4 0.72 L (0.78-2.19) ng/dL Assessment and Plan (1) Hypothyroidism Narrative/Plan: * Newly diagnosed hypothyroidism * Initiated on levothyroxin 137 g by mouth daily based on her weight of 82 kg * Discussed plan of care and when to take her medication and follow-up with her PCP Current Visit: Yes Status: Acute Code(s): E03.9 - HYPOTHYROIDISM, UNSPECIFIED SNOMED Code(s): 72572298
[2018-05-30] MEDS: clonazePAM 1 MG TAB PO SCH (20:44)
[2018-05-30] MEDS: LITHIUM CARBONATE 300 MG CAP PO SCH (20:44)
[2018-05-30] MEDS: QUEtiapine 50 MG TAB PO SCH (20:44)
[2018-05-31] MEDS: LEVOTHYROXINE 137 MCG TAB PO SCH (05:59)
[2018-05-31 07:09] VITALS: RESP 16
[2018-05-31] MEDS: metFORMIN 500 MG TAB PO SCH ×2 (07:53→16:40)
[2018-05-31] MEDS: CYANOCOBALAMIN 500 MCG TAB PO SCH (07:54)
[2018-05-31] MEDS: CALCIUM CARB-VIT D 500MG-200UN 1 EACH TAB PO SCH (07:54)
[2018-05-31] MEDS: FAMOTIDINE 20 MG TAB PO SCH (07:55)
[2018-05-31] MEDS: TRIAMTERENE-HCTZ 37.5-25MG 1 EACH CAP PO SCH (07:55)
[2018-05-31] MEDS: FERROUS SULFATE 325 MG TAB PO SCH (07:55)
[2018-05-31] MEDS: LORATADINE 10 MG TAB PO SCH (07:55)
[2018-05-31] MEDS: NICOTINE 7MG/24HR PATCH TRANSDERM SCH (07:57)
[2018-05-31] MEDS: ALBUTEROL INHALER 60 PUFF/8 GM INHALER INHALATION PRN ×3 (09:06→19:54)
--- NOTE | 2018-05-31 10:01 | P.PN ---
Progress Note - Text Interval history: The patient is found in group she follows me to an interview room. She reports her mood has been improving. It's reported she slept 6 hours last evening. She feels rested. She has been attending groups. She has no questions or concerns regarding medication today. She does ask questions regarding her disposition and those were addressed. Mental status exam: The patient is alert she is dressed in her own clothing hygiene grooming are good. She is wearing her dentures. She has a bright affect speech is fluent spontaneous nonpressured. She reports no suicidal or homicidal ideation intent or plan. She reports no auditory or visual hallucinations or any specific delusions. She is demonstrating no overt ev idence of psychosis during this interaction. Thought process is becoming more organized. She demonstrated no agitation. Affect was stable throughout this brief session. Insight and judgment improving. She demonstrates no involuntary repetitive movements. She demonstrates no verbal or physical aggressiveness. She is oriented to person place and date. Plan: The patient will continue on her current psychotropic medications. We will confer with [facility] today to see if there will be a senior care bed available. I expect she will be appropriate for discharge in the next 1-2 days. We will continue to monitor for safety.
[2018-05-31] MEDS: MULTIVITAMINS, THERA 1 EACH TAB PO SCH (12:55)
[2018-05-31] MEDS: clonazePAM 1 MG TAB PO SCH (20:05)
[2018-05-31] MEDS: LITHIUM CARBONATE 300 MG CAP PO SCH (20:05)
[2018-05-31] MEDS: QUEtiapine 50 MG TAB PO SCH (20:06)
[2018-06-01] MEDS: LEVOTHYROXINE 137 MCG TAB PO SCH (05:46)
[2018-06-01 06:52] VITALS: BP 116/67; PULSE 74; TEMP 97.7
[2018-06-01] MEDS: ALBUTEROL INHALER 60 PUFF/8 GM INHALER INHALATION PRN ×2 (08:29→12:04)
[2018-06-01] MEDS: FERROUS SULFATE 325 MG TAB PO SCH (09:12)
[2018-06-01] MEDS: FAMOTIDINE 20 MG TAB PO SCH (09:12)
[2018-06-01] MEDS: CYANOCOBALAMIN 500 MCG TAB PO SCH (09:12)
[2018-06-01] MEDS: CALCIUM CARB-VIT D 500MG-200UN 1 EACH TAB PO SCH (09:12)
[2018-06-01] MEDS: metFORMIN 500 MG TAB PO SCH (09:12)
[2018-06-01] MEDS: NICOTINE 7MG/24HR PATCH TRANSDERM SCH (09:13)
[2018-06-01] MEDS: TRIAMTERENE-HCTZ 37.5-25MG 1 EACH CAP PO SCH (09:13)
[2018-06-01] MEDS: LORATADINE 10 MG TAB PO SCH (09:13)
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
[2018-06-01] MEDS: MULTIVITAMINS, THERA 1 EACH TAB PO SCH (13:34)
== END 2018-06-01 16:28 | disposition home or self-care (01) | DRG 885 ==
LOC: EC 20:52 → 3MHU 05-13 12:40
PROVIDERS: ADMIT Psychiatry & Neurology Psychiatry; ATTEND Psychiatry & Neurology Psychiatry
DX: F25.0 Schizoaffective disorder, bipolar type (principal); B00.2 Herpesviral gingivostomatitis and pharyngotonsillitis; E11.9 Type 2 diabetes mellitus without complications; F41.9 Anxiety disorder, unspecified; E03.9 Hypothyroidism, unspecified; I10 Essential (primary) hypertension; J44.9 Chronic obstructive pulmonary disease, unspecified; K21.9 Gastro-esophageal reflux disease without esophagitis; E66.3 Overweight; Z68.30 Body mass index [BMI] 30.0-30.9, adult; F17.210 Nicotine dependence, cigarettes, uncomplicated; Z71.6 Tobacco abuse counseling; Z79.01 Long term (current) use of anticoagulants; Z79.84 Long term (current) use of oral hypoglycemic drugs; Z79.899 Other long term (current) drug therapy; Z98.84 Bariatric surgery status; Z71.3 Dietary counseling and surveillance; Z86.718 Personal history of other venous thrombosis and embolism; Z98.891 History of uterine scar from previous surgery; Z90.49 Acquired absence of other specified parts of digestive tract; Z98.51 Tubal ligation status; Z98.890 Other specified postprocedural states; Z88.5 Allergy status to narcotic agent; Z88.8 Allergy status to other drugs, medicaments and biological substances; Z91.040 Latex allergy status; Z80.1 Family history of malignant neoplasm of trachea, bronchus and lung; Z82.0 Family history of epilepsy and other diseases of the nervous system
CPT/HCPCS: 80053; 80178; 80306; 81003; 81025; 82075; 82565; 84439; 84443; 84520; 85025; 94640; 99285

== ENCOUNTER 2018-06-09 17:46 | Emergency (ER) | payer MEDICARE, OTHER ==
[2018-06-09 18:10] VITALS: TEMP 98.2
[2018-06-09] MEDS ORDERED: ACETAMINOPHEN TAB 500 MG TAB PO STA (19:01)
--- NOTE | 2018-06-09 19:04 | ED ---
Fall HPI - General Chief Complaint: Fall Stated Complaint: Fall Time Seen by Provider: 06/09/18 18:52 Source: patient, RN notes reviewed, old records reviewed Mode of arrival: ambulatory - History of Present Illness Initial Comments: Patient is a 47-year-old female presents emergency department today for evaluation after tripping and falling down the stairs last night. Patient reports that she lost her balance the top of her stairs and fell forward. She complains of pain over the right side of her body. The main pain is over her right breast area and rib area. She also complains of right upper arm pain and right knee pain. She denies any loss of consciousness. No vomiting or any abdominal pain. She denies any significant back pain. Patient states that she's been taking Tylenol for pain relief. She was that she strained some muscles at that time. - Related Data Home Medications Medication Instructions Recorded Confirmed Albuterol Sulfate [Proair Hfa] 1 - 2 puff INHALATION RT-Q4H PRN 04/23/18 05/12/18 Ibuprofen [Motrin] 400 mg PO TID PRN 04/23/18 05/12/18 Loratadine [Claritin] 10 mg PO DAILY 04/23/18 05/12/18 Multivitamins, Thera [Multivitamin 1 tab PO DAILY 04/23/18 05/12/18 (formulary)] metFORMIN HCL [Glucophage] 500 mg PO BID 04/23/18 05/12/18 Cyanocobalamin (Vitamin B-12) 1,000 mcg PO DAILY 05/12/18 05/12/18 [Vitamin B-12] Cyclobenzaprine [Flexeril] 10 mg PO HS PRN 05/12/18 05/12/18 Ferrous Sulfate [Iron (65 MG 325 mg PO DAILY 05/12/18 05/12/18 Elemental)] Triamterene-Hctz 37.5-25Mg 1 cap PO DAILY 05/12/18 05/12/18 [Dyazide 37.5-25 Capsule] Previous Rx's Medication Instructions Recorded Calcium Carbonate/Vitamin D3 1 tab PO DAILY #30 06/25/16 [Calcium 600-Vit D3 800 Tab] Famotidine [Pepcid] 20 mg PO DAILY #30 06/25/16 Levothyroxine Sodium [Synthroid] 137 mcg PO DAILY@0630 #30 tab 06/01/18 [place] Carbonate 600 mg PO HS #60 capsule 06/01/18 Nicotine 7Mg/24Hr Patch [Habitrol] 1 patch TRANSDERM DAILY #14 patch 06/01/18 Paliperidone IM [Invega Sustenna] 234 mg IM Q28D #1 syringe 06/01/18 QUEtiapine [SEROquel] 50 mg PO HS #30 tab 06/01/18 clonazePAM [KlonoPIN] 2 mg PO HS #14 tablet 06/01/18 Allergies Allergy/AdvReac Type Severity Reaction Status Date / Time codeine Allergy Unknown Verified 06/09/18 18:10 ibuprofen Allergy Unknown Verified 06/09/18 18:10 latex Allergy Itching Verified 06/09/18 18:10 chlorpromazine HCl AdvReac Extreme Verified 06/09/18 18:10 [From Thorazine] Sedation fluphenazine enanthate AdvReac Extreme Verified 06/09/18 18:10 [From Prolixin] Sedation fluphenazine HCl AdvReac Extreme Verified 06/09/18 18:10 [From Prolixin] Sedation Review of Systems ROS Statement: Those systems with pertinent positive or pertinent negative responses have been documented in the HPI. ROS Other: All systems not noted in ROS Statement are negative. Past Medical History Past Medical History: COPD, Diabetes Mellitus, Deep Vein Thrombosis (DVT), GERD/Reflux, Hypertension History of Any Multi-Drug Resistant Organisms: None Reported Past Surgical History: Bariatric Surgery, Section, Cholecystectomy, Hernia Repair, Tubal Ligation Past Anesthesia/Blood Transfusion Reactions: Blood Transfusion Reaction Additional Past Anesthesia/Blood Transfusion Reaction / Comment(s): Patient states "yes" but unable to provide details. Past Psychological History: Anxiety, Bipolar, Depression, Schizophrenia Smoking Status: Current every day smoker Past Alcohol Use History: None Reported Past Drug Use History: None Reported - Past Family History Mother Family Medical History: No Reported History Additional Family Medical History / Comment(s): Patient thinks her mother of old age. Father Family Medical History: No Reported History Additional Family Medical History / Comment(s): Father at age 93 from possible old age. Brother(s) Family Medical History: No Reported History Additional Family Medical History / Comment(s): Patient had 4 brothers and 2 have , one from lung cancer and one from ALS. Sister(s) Family Medical History: No Reported History Additional Family Medical History / Comment(s): Patient has 2 sisters and she does not know their medical problems. Son(s) Family Medical History: No Reported History Additional Family Medical History / Comment(s): Patient has one son that she gave up for adoption. General Exam - General Exam Comments Initial Comments: 47-year-old female. Alert and oriented. No distress. Limitations: no limitations General appearance: alert, in no apparent distress Head exam: Present: atraumatic, normocephalic, normal inspection Eye exam: Present: normal appearance, PERRL, EOMI. Absent: scleral icterus, conjunctival injection, periorbital swelling ENT exam: Present: normal exam, mucous membranes moist Neck exam: Present: normal inspection. Absent: tenderness, meningismus, lymphadenopathy Respiratory exam: Present: normal lung sounds bilaterally. Absent: respiratory distress, wheezes, rales, rhonchi, stridor Cardiovascular Exam: Present: regular rate, normal rhythm, normal heart sounds, other (Patient has tenderness over the right breast, small contusion noted.). Absent: systolic murmur, diastolic murmur, rubs, gallop, clicks GI/Abdominal exam: Present: soft, normal bowel sounds. Absent: distended, tenderness, guarding, rebound, rigid Extremities exam: Present: normal inspection, full ROM, normal capillary refill. Absent: tenderness, pedal edema, joint swelling, calf tenderness Back exam: Present: normal inspection Neurological exam: Present: alert, oriented X3, CN II-XII intact Psychiatric exam: Present: normal affect, normal mood Skin exam: Present: warm, dry, intact, normal color. Absent: rash Course Vital Signs 06/09/18 18:07 Temperature 98.2 F Pulse Rate 87 Respiratory 20 Rate Blood Pressure 130/75 O2 Sat by Pulse 98 Oximetry Medical Decision Making - Medical Decision Making 47-year-old female presents emergency department today for evaluation for her falling down stairs yesterday. She has had contusion over her right breast. Full range of motion and extremity's. Did offer the Patient for nausea however Patient is ALLERGIC to ibuprofen. Discussed and also lifting state. Patient's x-rays reviewed negative for any acute fractures or any changes. Patient from likely just muscle sprains. Discussed icing the areas that are sore. Discussed following up with PCP. All questions answered. - Radiology Data Radiology results: report reviewed Minimal degenerative spurring. No fracture seen. No significant joint space narrowing of the right knee. Negative right humerus exam. No acute cardiopulmonary disease. Normal heart. Minimal pleural scarring left lung base unchanged. Calcaneal spurring noted on ankle x-ray. No fracture. Disposition Clinical Impression: Muscle strain of chest wall, Contusion Disposition: HOME SELF-CARE Condition: Good Instructions (If sedation given, give patient instructions): Contusion in Arian lts (ED), Muscle Strain (ED) Additional Instructions: Follow-up with primary care physician. Take Tylenol and ice the areas that are painful. Return to emergency department if any alarming signs or symptoms occur. Is patient prescribed a controlled substance at d/c from ED?: No Referrals: [facility] [Primary Care Provider] - 1-2 days Time of Disposition: 20:14
--- NOTE | 2018-06-09 19:42 | XR ---
EXAMINATION TYPE: XR humerus RT DATE OF EXAM: 06/09/2018 COMPARISON: NONE HISTORY: Pain TECHNIQUE: 2 views FINDINGS: I see no fracture nor dislocation. Humerus appears intact. There are no pathologic calcific ations. IMPRESSION: Negative right humerus exam.
--- NOTE | 2018-06-09 19:43 | XR ---
EXAMINATION TYPE: XR knee complete RT DATE OF EXAM: 06/09/2018 COMPARISON: NONE HISTORY: Knee pain TECHNIQUE: 3 views FINDINGS: There is some spurring of the femoral and tibial condyles medially. I see no fracture nor d islocation. There is minor spurring of the patella. There is no sign of joint effusion. IMPRESSION: Minimal degenerative spurring. No fracture seen. No significant joint space narrowing.
--- NOTE | 2018-06-09 19:45 | XR ---
EXAMINATION TYPE: XR chest 2V DATE OF EXAM: 06/09/2018 COMPARISON: 06/23/2014 HISTORY: Fall TECHNIQUE: Frontal and lateral views of the chest are obtained. FINDINGS: Heart and mediastinum are normal. Lungs are clear of consolidation. There is no pneumotho rax. Bony thorax is intact. There is slight blunting left costophrenic angle. IMPRESSION: No active cardiopulmonary disease. Normal heart. Minimal pleural scarring at the left gus ng base unchanged.
--- NOTE | 2018-06-09 20:02 | XR ---
EXAMINATION TYPE: XR ankle limited RT DATE OF EXAM: 06/09/2018 COMPARISON: NONE HISTORY: Ankle pain TECHNIQUE: 2 views FINDINGS: Ankle mortise is anatomic. I see no fracture nor dislocation. There is plantar calcaneal sp urring. IMPRESSION: Calcaneal spurring. No fracture seen.
[2018-06-09 20:34] VITALS: BP 128/81; PULSE 83; RESP 16
== END 2018-06-09 20:34 | disposition home or self-care (01) ==
LOC: EC 17:46
DX: S29.011A Strain of muscle and tendon of front wall of thorax, initial encounter (principal); S20.01XA Contusion of right breast, initial encounter; J44.9 Chronic obstructive pulmonary disease, unspecified; E11.9 Type 2 diabetes mellitus without complications; I10 Essential (primary) hypertension; M77.31 Calcaneal spur, right foot; F17.200 Nicotine dependence, unspecified, uncomplicated; Z79.84 Long term (current) use of oral hypoglycemic drugs; Z79.899 Other long term (current) drug therapy; Z88.5 Allergy status to narcotic agent; Z88.6 Allergy status to analgesic agent; Z91.040 Latex allergy status; Z88.8 Allergy status to other drugs, medicaments and biological substances; Z98.84 Bariatric surgery status; W10.9XXA Fall (on) (from) unspecified stairs and steps, initial encounter; Y92.009 Unspecified place in unspecified non-institutional (private) residence as the place of occurrence of the external cause
CPT/HCPCS: 71046; 99284

== ENCOUNTER → 2020-01-18 | Outpatient (CLI) | payer OTHER ==
--- NOTE | 2020-01-22 11:35 | MM ---
Reason for exam: screening (asymptomatic). History: Patient is postmenopausal. Physical Findings: A clinical breast exam by your physician is recommended on an annual basis and results should be correlated with mammographic findings. MG Screening Mammo w CAD Bilateral CC and MLO view(s) were taken. No prior studies available for comparison. There are scattered fibroglandular densities. There is no discrete abnormality. Benign intramammary lymph node left posterior upper outer quadrant. ASSESSMENT: Negative, BI-RAD 1 RECOMMENDATION: Routine screening mammogram of both breasts in 1 year.
== END | disposition home or self-care (01) ==
LOC: RADMAMWWP 15:26
PROVIDERS: ATTEND Family Medicine
DX: Z12.31 Encounter for screening mammogram for malignant neoplasm of breast (principal); Z88.6 Allergy status to analgesic agent; Z88.8 Allergy status to other drugs, medicaments and biological substances
CPT/HCPCS: 77067

== ENCOUNTER → 2020-04-01 | Outpatient (CLI) | payer OTHER ==
--- NOTE | 2020-04-03 09:42 | P.ARTDOP ---
Arterial Doppler LOWER EXTREMITY ARTERIAL DOPPLER: DATE OF SERVICE: 04/01/2020 Reason for study: Difficulty moving legs with heaviness. Doppler waveforms: Multiphasic bilaterally throughout. Pulse volume recording: []. Pressure gradients: None. Ankle-brachial indices: Greater than 1 bilaterally. Toe brachial indices: [] on the right, [] on the left Impression: Normal study.
== END | disposition home or self-care (01) ==
LOC: RADUSWWP 13:59
PROVIDERS: ATTEND Nurse Practitioner Acute Care
DX: I73.9 Peripheral vascular disease, unspecified (principal)
CPT/HCPCS: 93922

== ENCOUNTER → 2020-12-25 | Outpatient (CLI) | payer OTHER ==
--- NOTE | 2020-12-25 14:14 | FL ---
EXAMINATION TYPE: FL UGI DATE OF EXAM: 12/25/2020 COMPARISON: NONE HISTORY: 50-year-old female history of Ivana-en-Y gastric bypass in 1999. Unspecified dysplasia. The p atient complains of abdominal pain and food getting stuck at the lower chest. TECHNIQUE: A single contrast UGI study is performed. A total of 2 minutes 19 seconds of fluoroscopi c time was utilized during procedure and 59 images obtained. FINDINGS: The esophagus shows coarse and caliber though there are mild tertiary peristaltic waves demonstrated. Allowing for single contrast technique, no suspicious filling defect is encountered. There is a small hiatal hernia demonstrated. Postsurgical change of Ivana-en-Y gastric bypass without any obstruction across the gastrojejunostomy and into left-sided small bowel loops. IMPRESSION: 1. Status post Ivana-en-Y gastric bypass. No obstruction or evident stricture. 2. Mild esophageal dysmotility. 3. A small hiatal hernia is noted.
== END | disposition home or self-care (01) ==
LOC: RADUSWWP 09:39
PROVIDERS: ATTEND Surgery Plastic and Reconstructive Surgery
DX: K22.4 Dyskinesia of esophagus (principal); K44.9 Diaphragmatic hernia without obstruction or gangrene
CPT/HCPCS: 74240

== ENCOUNTER → 2020-12-27 | Outpatient (CLI) | payer OTHER ==
--- NOTE | 2020-12-27 11:10 | CT ---
EXAMINATION TYPE: CT abdomen pelvis w con DATE OF EXAM: 12/27/2020 HISTORY: Generalized abdominal pain CT DLP: 2349.8mGycm Automated Exposure Control for Dose Reduction was Utilized. CONTRAST: CT scan of the abdomen and pelvis is performed with IV Contrast, patient injected with 100 mL of Isov ue 300. COMPARISON: CT abdomen and pelvis July 30, 2010 FINDINGS: LUNG BASES: No significant abnormality is appreciated. LIVER/GB: Cholecystectomy changes redemonstrated. PANCREAS: No significant abnormality is seen. SPLEEN: No significant abnormality is seen. ADRENALS: No significant abnormality is seen. KIDNEYS: No significant abnormality is seen. BOWEL: Oral contrast reaches the rectum. No suspicious small or large bowel dilatation surgical montgomery es from gastric bypass procedure are redemonstrated at epigastric level. Moderate length moderate to severe from cecum to the hepatic flexure wall thickening in the right colon on current study. No surr ounding fat stranding. Normal contrast-filled appendix from cecum axial image 53. There is intrarecta l hyperdense structure with streak artifact within the rectum measuring 5.5 cm long axis sagittal schuyler ge 65. Review of patient chart shows upper GI study 2 days ago, some retained barium is suspected. UTERUS/ADNEXA: Anteverted uterus. LYMPH NODES: No greater than 1cm abdominal or pelvic lymph nodes are appreciated. OSSEOUS STRUCTURES: Small posterior disc herniation L4-L5 level sagittal image 63. Mild axial joint s pace loss both hips. OTHER: No significant additional abnormality is seen. IMPRESSION: Possible right-sided uncomplicated acute colitis, correlate clinically. Differential incl udes infectious, inflammatory, and ischemic etiologies. Length of involvement makes neoplasm unlikely but would advise colonoscopy follow-up if has not been performed in last 3-5 years.
== END | disposition home or self-care (01) ==
LOC: RADCTMAIN 08:30
PROVIDERS: ATTEND Surgery Plastic and Reconstructive Surgery
DX: R10.84 Generalized abdominal pain (principal)
CPT/HCPCS: 82565; 84520; 74177; 36415; Q9967

== ENCOUNTER 2021-12-03 08:30 | Day surgery (SDC) | payer OTHER ==
[2021-12-02 09:05] VITALS: BMI 38.2
--- NOTE | 2021-12-03 07:57 | P.GSHP ---
History of Present Illness H&P Date: 12/03/21 CHIEF COMPLAINT: GERD and colon screen HISTORY OF PRESENT ILLNESS: The patient is a 51-year-old female who presents with gastroesophageal reflux disease and need for colon screen. Upper and lower endoscopy were offered for further evaluation and management. PAST MEDICAL HISTORY: Please see list. PAST SURGICAL HISTORY: Please see list. MEDICATIONS: Please see list. ALLERGIES: Please see list. SOCIAL HISTORY: No illicit drug use FAMILY HISTORY: No reports of Crohn disease or ulcerative colitis. REVIEW OF ORGAN SYSTEMS: CONSTITUTIONAL: No reports of fevers or chills. GI: Denies any blood in stools or constipation. PHYSICAL EXAM: VITAL SIGNS: Stable GENERAL: Well-developed pleasant in no acute distress. HEENT: No scleral icterus. Extraocular movements grossly intact. Moist buccal mucosa. NECK: Supple without lymphadenopathy. CHEST: Unlabored respirations. Equal bilateral excursions. CARDIOVASCULAR: Regular rate and rhythm. Distal 2+ pulses. ABDOMEN: Soft, nondistended. MUSCULOSKELETAL: No clubbing, cyanosis, or edema. ASSESSMENT: 1. Gastroesophageal reflux disease 2. Colon screen. PLAN: 1. Recommend proceeding with an upper and lower endoscopy Past Medical History Past Medical History: COPD, Diabetes Mellitus, Deep Vein Thrombosis (DVT), GERD/Reflux, Hyperlipidemia, Hypertension, Osteoarthritis (OA), Thyroid Disorder Additional Past Medical History / Comment(s): Chronic back and right foot pain. Uses cane PRN. Varicose veins. History of Any Multi-Drug Resistant Organisms: None Reported Past Surgical History: Bariatric Surgery, Section, Cholecystectomy, Hernia Repair, Tubal Ligation Past Anesthesia/Blood Transfusion Reactions: No Reported Reaction Additional Past Anesthesia/Blood Transfusion Reaction / Comment(s): Hx blood transfusion with no problems. Past Psychological History: Anxiety, Bipolar, Depression, Schizophrenia Smoking Status: Current every day smoker Past Alcohol Use History: None Reported Additional Past Alcohol Use History / Comment(s): Currently smokes two cigarettes a day, started smoking at 16 yrs of age, on and off. Past Drug Use History: None Reported - Past Family History Mother Family Medical History: Cancer Additional Family Medical History / Comment(s): Patient thinks her mother of old age. Father Family Medical History: Cancer Additional Family Medical History / Comment(s): Father at age 93 from possible old age. Brother(s) Family Medical History: Cancer Additional Family Medical History / Comment(s): Patient had 4 brothers and 2 have , one from lung cancer and one from ALS. Sister(s) Family Medical History: No Reported History Additional Family Medical History / Comment(s): Patient has 2 sisters and she does not know their medical problems. Son(s) Family Medical History: No Reported History Additional Family Medical History / Comment(s): Patient has one son that she gave up for adoption. Medications and Allergies Home Medications Medication Instructions Recorded Confirmed Type Famotidine [Pepcid] 20 mg PO DAILY #30 06/25/16 12/02/21 Rx Multivitamins, Thera [Multivitamin 1 tab PO DAILY 04/23/18 12/02/21 History (formulary)] metFORMIN HCL [Glucophage] 500 mg PO DAILY 04/23/18 12/02/21 History Cyanocobalamin (Vitamin B-12) 1,000 mcg PO DAILY 05/12/18 12/02/21 History [Vitamin B-12] Triamterene-Hctz 37.5-25Mg 1 cap PO DAILY 05/12/18 12/02/21 History [Dyazide 37.5-25 Capsule] [place] Powder Carbonate 600 mg PO HS #60 capsule 06/01/18 12/02/21 Rx Acetaminophen Tab [Tylenol Tab] 1,000 mg PO BID PRN 12/02/21 12/02/21 History Apixaban [Eliquis] 5 mg PO BID 12/02/21 12/02/21 History Atorvastatin Calcium 40 mg PO DAILY 12/02/21 12/02/21 History Calcium Carbonate/Vitamin D3 1 each PO DAILY 12/02/21 12/02/21 History [Calcium 500-Vit D3 5 Mcg (200 Iu)] Cholecalciferol [Vitamin D3 (10 10 mcg PO DAILY 12/02/21 12/02/21 History Mcg = 400 Iu)] Diclofenac Sodium Gel [Voltaren 2 gm TOPICAL QID 12/02/21 12/02/21 History Gel] Ferrous Sulfate [Iron] 325 mg PO DAILY 12/02/21 12/02/21 History Ipratropium/Albuter 20-100Mcg 1 puff INHALATION QID PRN 12/02/21 12/02/21 History [Combivent Respimat 20-100Mcg Inhaler] Levothyroxine Sodium 125 mcg PO QAM 12/02/21 12/02/21 History Lidocaine 5% Patch [Lidoderm] 1 patch TOPICAL DAILY 12/02/21 12/02/21 History Magnesium 420 mg PO DAILY 12/02/21 12/02/21 History Magnesium Hydroxide [Milk of 400 mg PO DIRECTED PRN 12/02/21 12/02/21 History Magnesia] Paliperidone [Invega] 6 mg PO 1700 12/02/21 12/02/21 History amLODIPine [Norvasc] 5 mg PO QAM 12/02/21 12/02/21 History clonazePAM [Clonazepam] 1 mg PO HS 12/02/21 12/02/21 History diphenhydrAMINE [Benadryl] 15 mg PO HS 12/02/21 12/02/21 History Allergies Allergy/AdvReac Type Severity Reaction Status Date / Time latex Allergy Itching Verified 12/02/21 08:18 chlorpromazine HCl AdvReac Extreme Verified 12/02/21 08:18 [From Thorazine] Sedation fluphenazine enanthate AdvReac Extreme Verified 12/02/21 08:18 [From Prolixin] Sedation fluphenazine HCl AdvReac Extreme Verified 12/02/21 08:18 [From Prolixin] Sedation
[~2021-12-03 08:30] MED LIST: LACTATED RINGERS 1,000 ML IV SCH
[2021-12-03 09:35] VITALS: TEMP 97
[2021-12-03 09:41] LABS: Glucose,Whole Blood 110 mg/dL (70-110)
[2021-12-03] MEDS ORDERED: PROPOFOL 10 MG/ML 20 ML VIAL IV ONE (10:02)
[2021-12-03] MEDS ORDERED: LIDOCAINE 2% INJ 20 MG/ML (2 ML VIAL) ONE (10:02)
--- NOTE | 2021-12-03 10:36 | P.PCN ---
Date of Procedure: 12/03/21 Description of Procedure: PREOPERATIVE DIAGNOSIS: Dysphagia. Nausea with vomiting. POSTOPERATIVE DIAGNOSIS: Dysphagia. Upper esophageal stenosis Diaphragmatic hiatal hernia OPERATION: Esophagogastrojejunoscopy with rigid dilator, 51-Chadian to address upper esophageal stenosis SURGEON: Tami Jaimes MD ANESTHESIA: MAC. INDICATIONS: The patient is a 51-year-old female who presents with a history of dysphagia, including nausea and vomiting. Benefits and risks of the procedure were described. Informed consent was obtained. DESCRIPTION: The patient was brought into the endoscopy suite and laid in the left lateral decubitus position. After a timeout was confirmed, the procedure was initiated. An Olympus gastroscope was passed along the posterior oropharynx down to the distal esophagus where the squamocolumnar junction was unremarkable. The gastric pouch was entered. Diaphragmatic hiatal hernia, 2 cm was identified. Attention was brought to the upper esophageal stenosis. The bite block was removed and mouth was opened with fingers. A rigid dilator, 51 Chadian was placed over a guidewire to 45 cm from the incisors and left for 2 minutes after exchanging the scope. The scope was advanced up to 60 cm from the incisors into the Ivana limb. The mucosa of the gastrojejunal anastomosis was intact. No chronic gastrojejunal marginal ulcer was encountered. No full-thickness injury was encountered. The GI tract was desufflated. The patient tolerated the procedure well. FINDINGS: Upper esophageal stenosis Rigid dilation of upper esophageal sphincter, 51-Chadian No chronic gastrojejunal ulceration encountered. Diaphragmatic hiatal hernia 2 cm RECOMMENDATIONS: Upper endoscopy as needed.
[2021-12-03 10:59] VITALS: RESP 16
[2021-12-03 11:12] VITALS: BP 135/72; PULSE 84
== END 2021-12-03 11:54 | disposition home or self-care (01) ==
LOC: ORWHC2ENDO 08:30
PROVIDERS: ATTEND Surgery Plastic and Reconstructive Surgery
DX: K22.2 Esophageal obstruction (principal); K44.9 Diaphragmatic hernia without obstruction or gangrene; J44.9 Chronic obstructive pulmonary disease, unspecified; E11.9 Type 2 diabetes mellitus without complications; I10 Essential (primary) hypertension; E78.5 Hyperlipidemia, unspecified; K21.9 Gastro-esophageal reflux disease without esophagitis; E07.9 Disorder of thyroid, unspecified; M19.90 Unspecified osteoarthritis, unspecified site; M79.671 Pain in right foot; F41.9 Anxiety disorder, unspecified; F20.9 Schizophrenia, unspecified; F17.210 Nicotine dependence, cigarettes, uncomplicated; F31.9 Bipolar disorder, unspecified; Z98.84 Bariatric surgery status; Z98.891 History of uterine scar from previous surgery; Z90.49 Acquired absence of other specified parts of digestive tract; Z98.51 Tubal ligation status; Z86.718 Personal history of other venous thrombosis and embolism; Z80.1 Family history of malignant neoplasm of trachea, bronchus and lung; Z79.84 Long term (current) use of oral hypoglycemic drugs; Z79.899 Other long term (current) drug therapy; Z79.890 Hormone replacement therapy; Z91.040 Latex allergy status; Z88.4 Allergy status to anesthetic agent
CPT/HCPCS: 43248; J2704; J2001; 43249

== ENCOUNTER → 2021-12-18 | Outpatient (CLI) | payer OTHER ==
--- NOTE | 2021-12-19 09:13 | FL ---
EXAMINATION TYPE: FL barium swallow DATE OF EXAM: 12/18/2021 COMPARISON: 12/25/2020 HISTORY: Dysphagia food getting stuck in proximal throat., history of Ivana-en-Y in 1999. EGD with pos sible esophageal stenosis proximal esophagus TECHNIQUE: Single contrast technique is utilized to evaluate the esophagus. FINDINGS: Fluoroscopy time: 2 minutes 19 seconds. Images: 193. Esophagus dilates to normal caliber and has normal contour throughout its visualized course. Attentio n is paid to the proximal cervical esophagus. No focal stenosis is identified. Note is made of multip le tertiary contractions within the distal esophagus during the exam. There is some hesitancy passing into the normal appearing gastroesophageal junction. No focal stenosis is evident. Contrast rapidly passes through the small residual stomach into the Ivana-en-Y anastomosis with the du odenum. No focal stenosis is evident. IMPRESSION: 1. No focal stenosis. 2. Presbyesophagus
== END | disposition home or self-care (01) ==
LOC: RADUSWWP 08:45
PROVIDERS: ATTEND Surgery Plastic and Reconstructive Surgery
DX: K22.89 Other specified disease of esophagus (principal)
CPT/HCPCS: 74220